=== PATIENT | male | born 1940 | race Caucasian/White ===

== ENCOUNTER 2020-08-09 13:26 | Inpatient (IN) ==
[2020-08-09] MEDS ORDERED: IOPAMIDOL 100 ML BOTTLE IV ONE (13:27)
[2020-08-09] MEDS ORDERED: VANCOMYCIN 1,000 MG in 0.9 % SODIUM CHLORIDE 250 ML IV ONE (14:30)
[2020-08-09] MEDS ORDERED: PIPERACILLIN SODIUM/TAZOBACTAM 3.375 GM in DEXTROSE 5% IN WATER 50 ML IV ONE (14:33)
[2020-08-09] MEDS ORDERED: 0.9 % SODIUM CHLORIDE 1,000 ML IV ONE ×2 (14:33→16:04)
[2020-08-09] MEDS ORDERED: ACETAMINOPHEN 325 MG TABLET PO ONE (15:12)
[2020-08-09 15:32] LABS: Basophils # (Auto) 0.04 K/mcL (0.00-0.20); Basophils % (Auto) 0.6 % (0.0-2.0); Eosinophils # (Auto) 0.05 K/mcL (0.00-0.70); Eosinophils % (Auto) 0.8 % (0.0-7.0); Hemoglobin 10.3 g/dL (13.5-16.5); Lymphocytes # (Auto) 0.67 K/mcL (1.50-4.80); Lymphocytes % (Auto) 10.2 % (15.0-49.0); Mean Cell Volume 67.6 fL (80.0-100.0); Mean Corpuscular HGB Conc 30.3 g/dL (31.0-36.0); Monocytes # (Auto) 0.48 K/mcL (0.10-0.90); Monocytes % (Auto) 7.3 % (1.0-12.0); Neutrophils % (Auto) 81.1 % (38.0-78.0); Platelet Count 255 K/mcL (140-440); RBC 5.03 M/mcL (4.50-5.90); Red Cell Distribution Width 16.1 % (11.5-14.5); WBC 6.6 K/mcL (4.5-11.0)
[2020-08-09 16:03] LABS: Appearance,Urine HAZY (Clear); Bilirubin,Urine NEG (Negative); Color,Urine Yellow; Glucose,Urine (UA) NEG (Negative); Ketones,Urine 5 mg/dL (Negative); Leukocyte Esterase,Urine NEG /ug (Negative); Mucus,Urine MANY /hpf; Nitrate,Urine NEG (Negative); Protein,Urine 100 mg/dL (Negative); Specific Gravity,Urine 1.023 (1.000-1.035); Urine Blood NEG (Negative); Urine Hyaline Cast 4 /lph (0-2); Urine RBC 1 /hpf (0-3); Urine Squamous Epithelial Cell 2 /hpf (0-4); Urine WBC 2 /hpf (0-4)
[2020-08-09 16:06] LABS: ALT/SGPT < 5 U/L (<40); AST/SGOT 15 U/L (<40); Albumin 3.3 gm/dL (3.2-5.2); Alkaline Phosphatase 71 U/L (39-117); Bilirubin,Total 0.5 mg/dL (0.1-1.0); Blood Urea Nitrogen 16 mg/dL (8-23); Calcium 8.9 mg/dL (8.6-10.4); Carbon Dioxide 29 mmol/L (22-30); Chloride 95 mmol/L (96-108); Globulin 3.2 gm/dL (2.2-3.7); Glomerular Filtration Rate 88; Glucose 160 mg/dL (70-105)
[2020-08-09] MEDS ORDERED: POTASSIUM CHLORIDE 20 MEQ TABLET PO ONE ×2 (16:26→21:40)
[2020-08-09] MEDS ORDERED: POTASSIUM CHLORIDE 20 MEQ in DEXTROSE 5% IN WATER 250 ML IV ONE (16:26)
[2020-08-09] MEDS ORDERED: MAGNESIUM SULFATE 8.12 MEQ/2 ML VIAL IV ONE (17:04)
[2020-08-09] MEDS ORDERED: MAGNESIUM SULFATE 8.12 MEQ in DEXTROSE 5% IN WATER 50 ML IV ONE ×2 (17:15→21:40)
--- NOTE | 2020-08-09 17:22 | Emergency Department Note ---
Fever HPI General Chief Complaint: Weakness Stated Complaint: Sepsis Time Seen by Provider: 08/09/20 13:41 Source: patient and family Mode of arrival: wheelchair Limitations: no limitations History of Present Illness HPI Narrative: Narrative: Presents from T7 for evaluation of fever with right upper extremity swelling. The patient is well-known to myself. I saw the patient on 07/25/2020 for evaluation of fever. At that time the patient had extensive evaluation which showed no identifiable source. There was a q uestionable abnormality in the urine and the patient was treated for that. The patient was subsequently seen yesterday at the ID clinic for generalized weakness decreased urine output and increased swelling of the right hand and forearm. Patient had an x-ray at that time which showed osteoarthritis and chondrocalcinosis. The patient did have an elevated D-dimer at that time. 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 The patient denies any headache. No neck stiffness. There is no cough or sputum production. The patient is noted to be tachypneic but denies shortness of breath or chest tightness. The patient denies any abdominal pain or back pain. There is no additional symptoms reported in the extremities other than the right upper extremity which is swollen and warm to the touch. Related Data Home Medications Medication Instructions Recorded Confirmed allopurinol 300 mg tablet 300 mg PO QDAY 06/05/20 08/03/20 aspirin 81 mg tablet,delayed 81 mg PO QDAY 06/05/20 08/03/20 release cholecalciferol (vitamin D3) 50 50 mcg PO QDAY 06/05/20 08/03/20 mcg (2,000 unit) capsule famotidine 20 mg tablet 20 mg PO QDAY 06/05/20 08/03/20 ferrous sulfate 324 mg (65 mg 324 mg PO QDAY 06/05/20 08/03/20 iron) tablet,delayed release fludrocortisone 0.1 mg tablet 0.1 mg PO BID tab 06/05/20 08/03/20 furosemide 20 mg tablet 10 mg PO QAM 06/05/20 08/03/20 loratadine 10 mg tablet 10 mg PO QDAY 06/05/20 08/03/20 mecobalamin (vitamin B12) 1,000 1,000 mcg PO QDAY 06/05/20 08/03/20 mcg chewable tablet mirtazapine 15 mg tablet 15 mg PO QHS 06/05/20 08/03/20 ondansetron HCl 4 mg tablet 4 mg PO Q8H 06/05/20 08/03/20 potassium chloride 10 mEq 20 meq PO QDAY 06/05/20 08/03/20 capsule,extended release rivaroxaban 20 mg tablet 20 mg PO QDAY 06/05/20 08/03/20 tamsulosin 0.4 mg capsule 0.4 mg PO QDAY 06/05/20 08/03/20 adhesive bandage 4" X 8" 07/20/20 08/03/20 apixaban 5 mg tablet 5 mg PO BID 07/20/20 08/03/20 budesonide-formoterol HFA 160 2 puff INHALATION BID 07/20/20 08/03/20 mcg-4.5 mcg/actuation aerosol inhaler calcium carbonate 200 mg calcium 200 mg PO BID 07/20/20 08/03/20 (500 mg) chewable tablet cyanocobalamin (vitamin B-12) 1,000 mcg PO QDAY 07/20/20 08/03/20 1,000 mcg capsule diaper,brief,adult,disposable 07/20/20 08/03/20 diclofenac sodium 1 % topical gel 2 g TOPICAL QID 07/20/20 08/03/20 docusate sodium 100 mg capsule 100 mg PO QDAY 07/20/20 08/03/20 doxycycline hyclate 100 mg tablet 100 mg PO QDAY 07/20/20 08/03/20 gauze bandage 4 1/2" X 147" 07/20/20 08/03/20 hydrocolloid dressing 6" X 8" 07/20/20 08/03/20 incontinence pad, liner, disp 07/20/20 08/03/20 insulin syringe-needle U-100 0.5 07/20/20 08/03/20 mL 29 gauge x 1/2" ipratropium 20 mcg-albuterol 100 1 puff INHALATION Q6H 07/20/20 08/03/20 mcg/actuation mist for inhalation ketoconazole 2 % shampoo 1 applic TOPICAL 3XW 07/20/20 08/03/20 multivitamin 1 tab PO QDAY 07/20/20 08/03/20 mupirocin 2 % topical ointment 1 applic TOPICAL BID 07/20/20 08/03/20 naloxone 4 mg/actuation nasal spray 4 mg INTRANASAL Q2M 07/20/20 08/03/20 nutritional supplements ea PO 07/20/20 08/03/20 oxybutynin chloride 5 mg tablet 5 mg PO QDAY 07/20/20 08/03/20 polyethylene glycol 3350(bulk) ea MISCELLANEOUS 07/20/20 08/03/20 pramipexole 1 mg tablet 1 mg PO QDAY 07/20/20 08/03/20 pregabalin 75 mg capsule 75 mg PO QDAY 07/20/20 08/03/20 sertraline 100 mg tablet 100 mg PO QDAY 07/20/20 08/03/20 urinal, non-specific 07/20/20 08/03/20 albuterol 20 mcg INHALATION Q4-6HP PRN 08/09/20 08/09/20 Previous Rx's Medication Instructions Recorded lidocaine 5 % topical patch 1 patch TOPICAL QDAY #15 ea 06/05/20 oxycodone-acetaminophen 5 mg-325 1 tab PO .q 12h PRN #14 tab 06/05/20 mg tablet Allergies Allergy/AdvReac Type Severity Reaction Status Date / Time ssri AdvReac Severe hallucinati Uncoded 08/09/20 14:47 ons Review of Systems ROS ROS Narrative: Narrative: All systems ED: reviewed and negative except as stated. [facility] Narrative Patient History Narrative: Narrative: Medical/Surgical/Family History All Active Problems (Updated 08/09/20 @ 18:02 by Max Mcadams MD) Acute hypokalemia (Acute) Hypomagnesemia (Acute) Cellulitis (Acute) Hx of laminectomy (Acute) History of bilateral knee replacement (Acute) History of hernia repair (Acute) History of appendectomy (Acute) Cervicalgia (Chronic) Degenerative disc disease (Chronic) Failed back syndrome (Chronic) Myelopathy (Chronic) Radiculopathy (Chronic) Lumbar spondylosis (Chronic) Right ankle sprain (Acute) Fever (Acute) Generalized weakness (Acute) Wound infection (Acute) Unspecified osteoarthritis, unspecified site (Chronic) Supraventricular tachycardia (Chronic) Pulmonary hypertension, unspecified (Chronic) Personal history of pulmonary embolism (Chronic) Nonrheumatic aortic valve disorder, unspecified (Chronic) Non-pressure chronic ulcer of unspecified part of unspecified lower leg with unspecified severity (Chronic) Gastro-esophageal reflux disease without esophagitis (Chronic) Benign essential hypertension (Chronic) Atherosclerotic heart disease of [place] coronary artery without angina pectoris (Chronic) Acute embolism and thrombosis of unspecified deep veins of unspecified lower extremity (Chronic) Right knee pain (Chronic) History of CVA (cerebrovascular accident) (Chronic) Gout (Chronic) Chronic anticoagulation (Chronic) Chronic low back pain (Chronic) History of rheumatoid arthritis (Chronic) COPD (chronic obstructive pulmonary disease) (Chronic) History of thalassemia (Chronic) Lower extremity edema (Chronic) Arthralgia (Chronic) Medical History Acute embolism and thrombosis of unspecified deep veins of unspecified lower extremity Arthralgia Atherosclerotic heart disease of [place] coronary artery without angina pectoris Benign essential hypertension Cervicalgia Chronic anticoagulation Chronic low back pain COPD (chronic obstructive pulmonary disease) Degenerative disc disease Failed back syndrome Gastro-esophageal reflux disease without esophagitis Gout History of CVA (cerebrovascular accident) History of rheumatoid arthritis History of thalassemia Lower extremity edema Lumbar spondylosis Myelopathy Non-pressure chronic ulcer of unspecified part of unspecified lower leg with unspecified severity Nonrheumatic aortic valve disorder, unspecified Personal history of pulmonary embolism Pulmonary hypertension, unspecified Radiculopathy Right knee pain Supraventricular tachycardia Unspecified osteoarthritis, unspecified site Surgical History History of appendectomy History of bilateral knee replacement History of hernia repair Hx of laminectomy No pertinent past surgical history Family History Father High blood pressure Heart disease Alcohol abuse Brother Heart disease Diabetes Mother High blood pressure Arthritis Diabetes Heart disease Sister High blood pressure Arthritis Heart disease Other No pertinent family history Social History Smoking Status: Never smoker Alcohol Intake Frequency: 0-2 drinks per day Substance Use: other Exam Narrative Narrative: Narrative: General Limitations: no limitations General appearance: Present alert and in no apparent distress Head Head: Present atraumatic, normocephalic and normal inspection Eye Eye: Present normal appearance and EOMI; Absent conjunctival injection ENT ENT: Present normal exam and mucous membranes moist Neck Neck: Present normal inspection and trachea midline Respiratory Respiratory: Present normal lung sounds bilaterally, respiratory distress and other (Tachypnea) Cardiovascular Cardiovascular: Present regular rate, normal rhythm and normal heart sounds Adbominal Abdominal: Present soft; Absent distention, tenderness, guarding and rebound Extremities Extremities: Present other (The right upper extremity shows diffuse spongy edema from the mid forearm distally involving the wrist and hand with warmth consistent with cellulitis.); Absent tenderness Back Back: Present normal inspection; Absent tenderness Neurological Neurological: Present alert, oriented X3 and CN II-XII intact; Absent motor sensory deficit Psychiatric Psychiatric: Present normal affect and normal mood Skin Skin: Present warm (WNL) and dry; Absent rash Course Vital Signs Vital signs: Vital Signs Temperature 102.1 F H 08/09/20 13:28 Pulse Rate 101 H 08/09/20 13:28 Respiratory Rate 22 08/09/20 13:28 Blood Pressure 127/76 08/09/20 13:28 Pulse Oximetry (%) 96 08/09/20 13:28 Temperature 100.8 F H 08/09/20 15:58 Pulse Rate 100 H 08/09/20 16:49 Respiratory Rate 26 H 08/09/20 16:49 Blood Pressure 123/57 08/09/20 16:49 Pulse Oximetry (%) 97 08/09/20 16:49 MDM MDM Narrative Medical decision making narrative: Narrative: Medical Records Medical records reviewed: Yes I reviewed the patient's medical records. Lab Data Lab results reviewed: Yes I reviewed the patient's lab results. Result diagrams: 08/09/20 14:15 08/09/20 14:15 Labs: Lab Results 08/09/20 08/09/20 08/09/20 Range/Units 14:15 14:15 14:15 WBC 6.6 (4.5-11.0) K/mcL RBC 5.03 (4.50-5.90) M/mcL Hgb 10.3 L (13.5-16.5) g/dL Hct 34.0 L (41.0-55.0) % MCV 67.6 L (80.0-100.0) fL MCH 20.5 L (26.0-34.0) pg MCHC 30.3 L (31.0-36.0) g/dL RDW 16.1 H (11.5-14.5) % Plt Count 255 (140-440) K/mcL MPV (7.4-10.4) fL Neut % (Auto) 81.1 H (38.0-78.0) % Lymph % (Auto) 10.2 L (15.0-49.0) % Mccone % (Auto) 7.3 (1.0-12.0) % Eos % (Auto) 0.8 (0.0-7.0) % Baso % (Auto) 0.6 (0.0-2.0) % Lymph # (Auto) 0.67 L (1.50-4.80) K/mcL Mccone # (Auto) 0.48 (0.10-0.90) K/mcL Eos # (Auto) 0.05 (0.00-0.70) K/mcL Baso # (Auto) 0.04 (0.00-0.20) K/mcL Absolute Neutrophils 5.34 (1.80-8.00) K/mcL VBG Lactic Acid 1.9 (0.5-2.0) mmol/L Sodium 136 (133-145) mmol/L Potassium 2.7 L* (3.3-5.1) mmol/L Chloride 95 L (96-108) mmol/L Carbon Dioxide 29 (22-30) mmol/L Anion Gap 12.0 (8.0-16.0) BUN 16 (8-23) mg/dL Creatinine 0.7 (0.7-1.2) mg/dL GFR Calculation 88 Glucose 160 H (70-105) mg/dL Calcium 8.9 (8.6-10.4) mg/dL Magnesium (1.6-2.5) mg/dL Total Bilirubin 0.5 (0.1-1.0) mg/dL AST 15 (<40) U/L ALT < 5 (<40) U/L Alkaline Phosphatase 71 (39-117) U/L Total Protein 6.5 (5.9-8.4) gm/dL Albumin 3.3 (3.2-5.2) gm/dL Globulin 3.2 (2.2-3.7) gm/dL Albumin/Globulin Ratio 1.0 (1.0-2.3) Urine Color Urine Appearance (Clear) Urine pH (5.0-9.0) Ur Specific Speed (1.000-1.035) Urine Protein (Negative) mg/dL Urine Glucose (UA) (Negative) mg/dL Urine Ketones (Negative) mg/dL Urine Occult Blood (Negative) mg/dL Urine Nitrate (Negative) Urine Bilirubin (Negative) mg/dL Urine Urobilinogen mg/dL Ur Leukocyte Esterase (Negative) /ug Urine RBC (0-3) /hpf Urine WBC (0-4) /hpf Ur Squamous Epith Cells (0-4) /hpf Urine Bacteria (0) /hpf Hyaline Casts (0-2) /lph Urine Mucus (None) /hpf 08/09/20 08/09/20 Range/Units 14:15 14:49 WBC (4.5-11.0) K/mcL RBC (4.50-5.90) M/mcL Hgb (13.5-16.5) g/dL Hct (41.0-55.0) % MCV (80.0-100.0) fL MCH (26.0-34.0) pg MCHC (31.0-36.0) g/dL RDW (11.5-14.5) % Plt Count (140-440) K/mcL MPV (7.4-10.4) fL Neut % (Auto) (38.0-78.0) % Lymph % (Auto) (15.0-49.0) % Mccone % (Auto) (1.0-12.0) % Eos % (Auto) (0.0-7.0) % Baso % (Auto) (0.0-2.0) % Lymph # (Auto) (1.50-4.80) K/mcL Mccone # (Auto) (0.10-0.90) K/mcL Eos # (Auto) (0.00-0.70) K/mcL Baso # (Auto) (0.00-0.20) K/mcL Absolute Neutrophils (1.80-8.00) K/mcL VBG Lactic Acid (0.5-2.0) mmol/L Sodium (133-145) mmol/L Potassium (3.3-5.1) mmol/L Chloride (96-108) mmol/L Carbon Dioxide (22-30) mmol/L Anion Gap (8.0-16.0) BUN (8-23) mg/dL Creatinine (0.7-1.2) mg/dL GFR Calculation Glucose (70-105) mg/dL Calcium (8.6-10.4) mg/dL Magnesium 1.2 L (1.6-2.5) mg/dL Total Bilirubin (0.1-1.0) mg/dL AST (<40) U/L ALT (<40) U/L Alkaline Phosphatase (39-117) U/L Total Protein (5.9-8.4) gm/dL Albumin (3.2-5.2) gm/dL Globulin (2.2-3.7) gm/dL Albumin/Globulin Ratio (1.0-2.3) Urine Color Yellow Urine Appearance Hazy A (Clear) Urine pH 5.0 (5.0-9.0) Ur Specific Speed 1.023 (1.000-1.035) Urine Protein 100 A (Negative) mg/dL Urine Glucose (UA) Neg (Negative) mg/dL Urine Ketones 5 A (Negative) mg/dL Urine Occult Blood Neg (Negative) mg/dL Urine Nitrate Neg (Negative) Urine Bilirubin Neg (Negative) mg/dL Urine Urobilinogen 2.0 A mg/dL Ur Leukocyte Esterase Neg (Negative) /ug Urine RBC 1 (0-3) /hpf Urine WBC 2 (0-4) /hpf Ur Squamous Epith Cells 2 (0-4) /hpf Urine Bacteria None (0) /hpf Hyaline Casts 4 H (0-2) /lph Urine Mucus Many A (None) /hpf Radiology Data Radiology results reviewed: Yes I reviewed the patient's radiology results. CC TIME Critical Care Time Critical Care Time: Yes Total Critical Care Time: 30 Attestation: Approximately 30 minutes of critical care time was used in order to assess and manage the high probability of imminent or life threatening deterioration which required my highest level of preparedness and interventions with frequent patient assessments. This time is excluding time spent on separately billable procedures. Patient presents for evaluation of fever with redness warmth and swelling of the right upper extremity. The patient has an elevated D-dimer but is on Eliquis. Ultrasound of the right upper extremity confirmed no evidence of acute DVT. Incidental finding of fluid in the right glenohumeral joint is suggestive of arthritis. There is no tenderness with range of motion beyond baseline. There is no warmth or swelling and I have very low suspicion of septic joint in the right shoulder. On arrival the patient was noticed to be febrile and was treate d with antipyretics. Blood cultures were obtained and the patient was given empiric dose of vancomycin and Zosyn. I did review the patient's medical record from the visit on 07/25/2020 and noted that blood cultures at that time during the patient's work-up for fever were normal. The patient's urine culture at the time also showed skin contaminants but no infection. The patient has had an interval change with worsening redness and swelling of the right upper extremity. This is clinically consistent with cellulitis. The patient does have fever with tachypnea consistent with SIRS. The patient's lactic acid level is 1.9. There are no other indices suggestive of endorgan dysfunction. The p atient did have decreased urine in the bladder and was given an IV fluid bolus. The patient's been and creatinine is normal. The patient's potassium was 2.7 and the magnesium was 1.2. The patient was given IV and oral potassium as well as a dose of magnesium. The patient is not hypoxic with pulse ox being 100% on room air. The patient does not have any evidence of metabolic acidosis and I do not have a good explanation as to why he is tachypneic. CT scan of the chest as well as abdomen pelvis is currently pending. The patient will require admission. Of asked the oncoming physician to follow-up on the CT results and to disposition the patient. Discharge Plan Patient/Caregiver Discharge Instructions Pt seen by ELIGIBILITY COUNSELOR/PA only: No Clinical Impression: Fever, Acute hypokalemia, Hypomagnesemia, Cellulitis Patient Disposition: Still a Patient Follow up with: No,PCP [Primary Care Provider] - Prescriptions: No Action ipratropium-albuterol 20-100 mcg/actuation mist 1 puff inhalation Q6H RF: 0 apixaban 5 mg tablet 5 mg PO BID RF: 0 (DME) Briefs Misc See Rx Instructions .Route RF: 0 budesonide-formoterol 160-4.5 mcg/actuation HFA aerosol inhaler 2 puff inhalation DAILY RF: 0 calcium carbonate [Antacid (calcium carbonate)] 200 mg calcium (500 mg) tablet,chewable 200 mg PO BID RF: 0 cyanocobalamin (vitamin B-12) 1,000 mcg capsule 1,000 mcg PO QDAY RF: 0 diclofenac sodium [Arthritis Pain (diclofenac)] 1 % gel 2 g topical QID RF: 0 docusate sodium 100 mg capsule 100 mg PO QDAY RF: 0 (DME) hydrocolloid dressing [Restore Extra Thin Dressing] 6 X 8 " bandage See Rx Instructions .Route RF: 0 (DME) adhesive bandage 4 X 8 " bandage See Rx Instructions .Route RF: 0 (DME) incontinence pad, liner, disp Pad See Rx Instructions .Route RF: 0 (DME) Kerlix 4 1/2 X 147 " bandage See Rx Instructions .Route RF: 0 ketoconazole 2 % shampoo 1 applic topical DAILY PRN (Reason: dandruff) RF: 0 mupirocin 2 % ointment 1 applic topical BID RF: 0 naloxone 4 mg/actuation spray,non-aerosol 4 mg intranasal PRN PRN (Reason: overdose) RF: 0 nutritional supplements Liquid PO RF: 0 polyethylene glycol 3350(bulk) [Base B,Polyethylene [id number]] Granules miscellaneous RF: 0 pregabalin 75 mg capsule 75 mg PO QDAY RF: 0 (DME) urinal, non-specific Misc See Rx Instructions .Route RF: 0 oxybutynin chloride 5 mg tablet 5 mg PO QDAY RF: 0 doxycycline hyclate 100 mg tablet 100 mg PO QDAY RF: 0 multivitamin Tablet 1 tab PO QDAY RF: 0 pramipexole 1 mg tablet 1 mg PO QDAY RF: 0 sertraline 100 mg tablet 100 mg PO QDAY RF: 0 (DME) insulin syringe-needle U-100 [[facility] Syringes] 0.5 mL 29 gauge x 1/2" syringe See Rx Instructions .Route RF: 0 potassium chloride 10 mEq capsule, extended release 20 meq PO QDAY RF: 0 tamsulosin 0.4 mg capsule 0.4 mg PO QDAY RF: 0 aspirin 81 mg tablet,delayed release (DR/EC) 81 mg PO QDAY RF: 0 fludrocortisone 0.1 mg tablet 0.1 mg PO BID RF: 0 furosemide 20 mg tablet 10 mg PO QAM RF: 0 famotidine 20 mg tablet 20 mg PO QDAY RF: 0 rivaroxaban 20 mg tablet 20 mg PO QDAY RF: 0 mirtazapine 15 mg tablet 15 mg PO QHS RF: 0 cholecalciferol (vitamin D3) 50 mcg (2,000 unit) capsule 50 mcg PO QDAY RF: 0 ondansetron HCl 4 mg tablet 4 mg PO Q8H RF: 0 ferrous sulfate 324 mg (65 mg iron) tablet,delayed release (DR/EC) 325 mg PO QDAY RF: 0 allopurinol 300 mg tablet 300 mg PO QDAY RF: 0 mecobalamin (vitamin B12) 1,000 mcg tablet,chewable 1,000 mcg PO QDAY RF: 0 loratadine [Claritin] 10 mg tablet 10 mg PO QDAY RF: 0 lidocaine 5 % adhesive patch,medicated 1 patch topical QDAY Qty: 15 RF: 0 oxycodone-acetaminophen 5-325 mg tablet 1 tab PO .q 12h PRN (Reason: pain) Qty: 14 RF: 0 albuterol 90 mcg/actuation Aerosol 20 mcg inhalation Q4-6HP PRN (Reason: Wheezing) RF: 0
--- NOTE | 2020-08-09 17:54 | Ultrasound Report ---
History: Sepsis, right arm pain and swelling, elevated serum d-dimer level FINDINGS: Normal blood flow is demonstrated in the right arm from the distal forearm through the upper arm and axillary vein, into the subclavian vein. Normal flow is also seen in the right internal jugular. No deep venous thrombosis is seen. There is a large complex fluid collection around the right shoulder. The fluid collection measures 1.6 x 4.8 x 6.1 cm. Within it there is a complex irregularly shaped solid masslike structure which measures 1.2 x 2.6 x 2.7 cm. Doppler shows it is avascular. Doppler showed no abnormal increased blood flow along the periphery of the fluid collection. IMPRESSION: No evidence of deep venous thrombosis in the right arm Large complex fluid collection surrounding the right shoulder with some solid debris within the fluid pocket Interpreted and Authenticated by: Stephen Warner 08/09/20
--- NOTE | 2020-08-09 18:34 | Cat Scan Report ---
History: Fever, tachypnea, sepsis TECHNIQUE: Following injection of intravenous nonionic contrast the patient was scanned from the thoracic inlet through the symphysis pubis. Sagittal and coronal reformats were created. Five minute delayed images of the upper abdomen were acquired. Radiation exposure was limited using dose reduction technology. FINDINGS: Chest: Severe arthritis and inflammation is present in the right shoulder. The glenoid is severely remodeled and widened indicating this is a chronic process. There is also erosion and partial destruction of the humeral head. Associated with this is a large joint effusion. There is some relatively high attenuation heterogeneous material within the effusion located lateral to the humeral head. This corresponds with debris seen on the right arm duplex ultrasound. These findings have remained stable since the prior CT done on 07/25/20. Moderate osteoarthritis is present in the left shoulder. There is joint space narrowing and spur formation of both sides of the joint but no remodeling of bone or erosion. There may be a small joint effusion on the left side. Patient has a right-sided aortic arch which is ectatic and extends to the right apex. There is no dissection. Main pulmonary artery is enlarged suggesting pulmonary artery hypertension. This is also a chronic stable finding. There is partial atelectasis of the right middle lobe. This is related to moderate elevation of the right diaphragm which is compressing the right lung base and right middle lobe. Several linear opacities are present in the left lower lobe, lingula and posteriorly in the right lower lobe. This may be a combination of scar and atelectasis. They have not changed since 07/25/20. No new pulmonary infiltrate has developed. There is no pleural effusion. The heart is mild to moderately enlarged. Large amount calcified plaque is present throughout the coronary arteries. There are also calcifications in the aortic valve and mitral annulus. No pulmonary emboli are present. There is no evidence of a lung abscess. A moderate wedge compression fractures present at T9. There is also an old healed fracture medially in the left ninth rib where it articulates with the spine. These are unchanged. Abdomen and pelvis: The liver is mildly enlarged. There is moderate elevation of the right diaphragm. No liver mass is present. Numerous gallstones are present in the gallbladder. Gallbladder wall is normal thickness and there is no pericholecystic fluid collection. The bile ducts are nondilated. The spleen is normal in size and homogeneous. There is fatty infiltration the pancreas and no evidence of pancreatitis or mass. The adrenals are normal. Kidneys are normal in size shape and contour and there is no evidence of mass, cyst, hydronephrosis or infection in either kidney. Severe atherosclerotic disease is present throughout all of the vessels in the abdomen and pelvis. The aorta is normal in caliber but tortuous. There is mild ectasia of the common iliac arteries. The bowel pattern is normal without evidence of diverticulitis, colitis or obstruction. No mass, abscess or ascites are present in the abdomen or pelvis. Prostate is mildly enlarged. Extensive postsurgical changes are present in the lumbar spine following wide laminectomy and interbody fusion at L1-2 and L2-3. Severe disc space narrowing is present at T12-L1, L3-4, L4-5 and L5-S1. There is no evidence of osteomyelitis in the spine or pelvis. There is a inferior vena cava filter in the mid abdomen. There is no clot in the inferior vena cava. Small bilateral fat-containing inguinal hernias are present. IMPRESSION: Severe arthritis and inflammation in the right shoulder. This could be due to rheumatoid arthritis or gout. Superimposed infection cannot be excluded. Stable scar and atelectasis in both lungs with the greatest involvement in the right middle lobe Mild hepatomegaly Cholelithiasis but without cholecystitis Severe atherosclerosis throughout the chest abdomen and pelvis. Interpreted and Authenticated by: Stephen Warner 08/09/20
--- NOTE | 2020-08-09 20:21 | Emergency Department Note ---
Course Vital Signs Vital signs: Vital Signs Temperature 38.9 C H 08/09/20 13:28 Pulse Rate 101 H 08/09/20 13:28 Respiratory Rate 22 08/09/20 13:28 Blood Pressure 127/76 08/09/20 13:28 Pulse Oximetry (%) 96 08/09/20 13:28 Temperature 36.7 C 08/09/20 21:28 Pulse Rate 73 08/09/20 21:28 Respiratory Rate 36 H 08/09/20 21:28 Blood Pressure 135/80 08/09/20 21:28 Pulse Oximetry (%) 98 08/09/20 21:28 MDM MDM Narrative Medical decision making narrative: Narrative: pt endorsed to me (please refer to Dr. Mcadams note); awaiting CT results and admission. Patient with some cellulitis to his right upper extremity already received appropriate fluid bolus as well as broad-spectrum antibiotics. Ultrasound right upper extremity does not show any DVT nor abscess CT chest abdomen pelvis shows IMPRESSION: Severe arthritis and inflammation in the right shoulder. This could be due to rheumatoid arthritis or gout. Superimposed infection cannot be excluded. Stable scar and atelectasis in both lungs with the greatest involvement in the right middle lobe Mild hepatomegaly Cholelithiasis but without cholecystitis Severe atherosclerosis throughout the chest abdomen and pelvis. Given the fact he is presenting fever and this finding of inflammation and fluid to his right shoulder I did discuss with Dr. Warner, this is not significantly changed from previous CT and I also consulted with Dr. Emmanuel with orthopedics, this is likely inflammatory however given the fact he is febrile today Dr. Warner is going to perform an arthrocentesis under guidance to rule out septic infection. If results do suggest a septic joint Dr. Emmanuel will take the patient for a washout otherwise patient has already received broad-spectrum antibiotics and I have consulted with Dr. burt for admission Lab Data Result diagrams: 08/09/20 14:15 08/09/20 14:15 Labs: Lab Results 08/09/20 08/09/20 08/09/20 Range/Units 14:15 14:15 14:15 WBC 6.6 (4.5-11.0) K/mcL RBC 5.03 (4.50-5.90) M/mcL Hgb 10.3 L (13.5-16.5) g/dL Hct 34.0 L (41.0-55.0) % MCV 67.6 L (80.0-100.0) fL MCH 20.5 L (26.0-34.0) pg MCHC 30.3 L (31.0-36.0) g/dL RDW 16.1 H (11.5-14.5) % Plt Count 255 (140-440) K/mcL MPV (7.4-10.4) fL Neut % (Auto) 81.1 H (38.0-78.0) % Lymph % (Auto) 10.2 L (15.0-49.0) % [place] % (Auto) 7.3 (1.0-12.0) % Eos % (Auto) 0.8 (0.0-7.0) % Baso % (Auto) 0.6 (0.0-2.0) % Lymph # (Auto) 0.67 L (1.50-4.80) K/mcL [place] # (Auto) 0.48 (0.10-0.90) K/mcL Eos # (Auto) 0.05 (0.00-0.70) K/mcL Baso # (Auto) 0.04 (0.00-0.20) K/mcL Seg Neutrophils % (38-78) % Lymphocytes % (15-49) % Monocytes % (Manual) (1-12) % Absolute Neutrophils 5.34 (1.80-8.00) K/mcL Platelet Estimate (Normal) RBC Morphology (Normal) Polychromasia (None Seen) Hypochromasia (None Seen) Poikilocytosis (None Seen) Anisocytosis (None Seen) Microcytosis (None Seen) Ovalocytes (None Seen) ESR (0-15) mm/hr VBG Lactic Acid 1.9 (0.5-2.0) mmol/L Sodium 136 (133-145) mmol/L Potassium 2.7 L* (3.3-5.1) mmol/L Chloride 95 L (96-108) mmol/L Carbon Dioxide 29 (22-30) mmol/L Anion Gap 12.0 (8.0-16.0) BUN 16 (8-23) mg/dL Creatinine 0.7 (0.7-1.2) mg/dL GFR Calculation 88 Glucose 160 H (70-105) mg/dL Calcium 8.9 (8.6-10.4) mg/dL Magnesium (1.6-2.5) mg/dL Total Bilirubin 0.5 (0.1-1.0) mg/dL AST 15 (<40) U/L ALT < 5 (<40) U/L Alkaline Phosphatase 71 (39-117) U/L C-Reactive Protein (0.03-0.80) mg/dL Total Protein 6.5 (5.9-8.4) gm/dL Albumin 3.3 (3.2-5.2) gm/dL Globulin 3.2 (2.2-3.7) gm/dL Albumin/Globulin Ratio 1.0 (1.0-2.3) Urine Color Urine Appearance (Clear) Urine pH (5.0-9.0) Ur Specific [place] (1.000-1.035) Urine Protein (Negative) mg/dL Urine Glucose (UA) (Negative) mg/dL Urine Ketones (Negative) mg/dL Urine Occult Blood (Negative) mg/dL Urine Nitrate (Negative) Urine Bilirubin (Negative) mg/dL Urine Urobilinogen mg/dL Ur Leukocyte Esterase (Negative) /ug Urine RBC (0-3) /hpf Urine WBC (0-4) /hpf Ur Squamous Epith Cells (0-4) /hpf Urine Bacteria (0) /hpf Hyaline Casts (0-2) /lph Urine Mucus (None) /hpf Fluid Source Fluid Color Fluid Appearance Fluid RBC Fluid Diff Comment Fluid Tot Cell Count Fluid Nucleated Cells Fluid Neutrophils Fluid Lymphocytes Fluid Monocytes Fluid Eosinophils Fluid Basophils Fluid Plasma Cells Fld Mesothelial Cells Fluid Crystals (None Seen) Synovial Glucose mg/dL Synovial Uric Acid (0.0-6.0) mg/dL 08/09/20 08/09/20 08/09/20 Range/Units 14:15 14:29 14:38 WBC (4.5-11.0) K/mcL RBC (4.50-5.90) M/mcL Hgb (13.5-16.5) g/dL Hct (41.0-55.0) % MCV (80.0-100.0) fL MCH (26.0-34.0) pg MCHC (31.0-36.0) g/dL RDW (11.5-14.5) % Plt Count (140-440) K/mcL MPV (7.4-10.4) fL Neut % (Auto) (38.0-78.0) % Lymph % (Auto) (15.0-49.0) % [place] % (Auto) (1.0-12.0) % Eos % (Auto) (0.0-7.0) % Baso % (Auto) (0.0-2.0) % Lymph # (Auto) (1.50-4.80) K/mcL [place] # (Auto) (0.10-0.90) K/mcL Eos # (Auto) (0.00-0.70) K/mcL Baso # (Auto) (0.00-0.20) K/mcL Seg Neutrophils % 86 H (38-78) % Lymphocytes % 11 L (15-49) % Monocytes % (Manual) 3 (1-12) % Absolute Neutrophils (1.80-8.00) K/mcL Platelet Estimate Normal (Normal) RBC Morphology Abnormal A (Normal) Polychromasia 1+ A (None Seen) Hypochromasia 2+ A (None Seen) Poikilocytosis 1+ A (None Seen) Anisocytosis 1+ A (None Seen) Microcytosis 2+ A (None Seen) Ovalocytes 1+ A (None Seen) ESR 42 H (0-15) mm/hr VBG Lactic Acid (0.5-2.0) mmol/L Sodium (133-145) mmol/L Potassium (3.3-5.1) mmol/L Chloride (96-108) mmol/L Carbon Dioxide (22-30) mmol/L Anion Gap (8.0-16.0) BUN (8-23) mg/dL Creatinine (0.7-1.2) mg/dL GFR Calculation Glucose (70-105) mg/dL Calcium (8.6-10.4) mg/dL Magnesium 1.2 L (1.6-2.5) mg/dL Total Bilirubin (0.1-1.0) mg/dL AST (<40) U/L ALT (<40) U/L Alkaline Phosphatase (39-117) U/L C-Reactive Protein (0.03-0.80) mg/dL Total Protein (5.9-8.4) gm/dL Albumin (3.2-5.2) gm/dL Globulin (2.2-3.7) gm/dL Albumin/Globulin Ratio (1.0-2.3) Urine Color Urine Appearance (Clear) Urine pH (5.0-9.0) Ur Specific [place] (1.000-1.035) Urine Protein (Negative) mg/dL Urine Glucose (UA) (Negative) mg/dL Urine Ketones (Negative) mg/dL Urine Occult Blood (Negative) mg/dL Urine Nitrate (Negative) Urine Bilirubin (Negative) mg/dL Urine Urobilinogen mg/dL Ur Leukocyte Esterase (Negative) /ug Urine RBC (0-3) /hpf Urine WBC (0-4) /hpf Ur Squamous Epith Cells (0-4) /hpf Urine Bacteria (0) /hpf Hyaline Casts (0-2) /lph Urine Mucus (None) /hpf Fluid Source Fluid Color Fluid Appearance Fluid RBC Fluid Diff Comment Fluid Tot Cell Count Fluid Nucleated Cells Fluid Neutrophils Fluid Lymphocytes Fluid Monocytes Fluid Eosinophils Fluid Basophils Fluid Plasma Cells Fld Mesothelial Cells Fluid Crystals (None Seen) Synovial Glucose mg/dL Synovial Uric Acid (0.0-6.0) mg/dL 08/09/20 08/09/20 08/09/20 Range/Units 14:38 14:49 20:50 WBC (4.5-11.0) K/mcL RBC (4.50-5.90) M/mcL Hgb (13.5-16.5) g/dL Hct (41.0-55.0) % MCV (80.0-100.0) fL MCH (26.0-34.0) pg MCHC (31.0-36.0) g/dL RDW (11.5-14.5) % Plt Count (140-440) K/mcL MPV (7.4-10.4) fL Neut % (Auto) (38.0-78.0) % Lymph % (Auto) (15.0-49.0) % [place] % (Auto) (1.0-12.0) % Eos % (Auto) (0.0-7.0) % Baso % (Auto) (0.0-2.0) % Lymph # (Auto) (1.50-4.80) K/mcL [place] # (Auto) (0.10-0.90) K/mcL Eos # (Auto) (0.00-0.70) K/mcL Baso # (Auto) (0.00-0.20) K/mcL Seg Neutrophils % (38-78) % Lymphocytes % (15-49) % Monocytes % (Manual) (1-12) % Absolute Neutrophils (1.80-8.00) K/mcL Platelet Estimate (Normal) RBC Morphology (Normal) Polychromasia (None Seen) Hypochromasia (None Seen) Poikilocytosis (None Seen) Anisocytosis (None Seen) Microcytosis (None Seen) Ovalocytes (None Seen) ESR (0-15) mm/hr VBG Lactic Acid (0.5-2.0) mmol/L Sodium (133-145) mmol/L Potassium (3.3-5.1) mmol/L Chloride (96-108) mmol/L Carbon Dioxide (22-30) mmol/L Anion Gap (8.0-16.0) BUN (8-23) mg/dL Creatinine (0.7-1.2) mg/dL GFR Calculation Glucose (70-105) mg/dL Calcium (8.6-10.4) mg/dL Magnesium (1.6-2.5) mg/dL Total Bilirubin (0.1-1.0) mg/dL AST (<40) U/L ALT (<40) U/L Alkaline Phosphatase (39-117) U/L C-Reactive Protein 11.40 H (0.03-0.80) mg/dL Total Protein (5.9-8.4) gm/dL Albumin (3.2-5.2) gm/dL Globulin (2.2-3.7) gm/dL Albumin/Globulin Ratio (1.0-2.3) Urine Color Yellow Urine Appearance Hazy A (Clear) Urine pH 5.0 (5.0-9.0) Ur Specific [place] 1.023 (1.000-1.035) Urine Protein 100 A (Negative) mg/dL Urine Glucose (UA) Neg (Negative) mg/dL Urine Ketones 5 A (Negative) mg/dL Urine Occult Blood Neg (Negative) mg/dL Urine Nitrate Neg (Negative) Urine Bilirubin Neg (Negative) mg/dL Urine Urobilinogen 2.0 A mg/dL Ur Leukocyte Esterase Neg (Negative) /ug Urine RBC 1 (0-3) /hpf Urine WBC 2 (0-4) /hpf Ur Squamous Epith Cells 2 (0-4) /hpf Urine Bacteria None (0) /hpf Hyaline Casts 4 H (0-2) /lph Urine Mucus Many A (None) /hpf Fluid Source TNP Fluid Color TNP Fluid Appearance TNP Fluid RBC TNP Fluid Diff Comment TNP Fluid Tot Cell Count TNP Fluid Nucleated Cells TNP Fluid Neutrophils TNP Fluid Lymphocytes TNP Fluid Monocytes TNP Fluid Eosinophils TNP Fluid Basophils TNP Fluid Plasma Cells TNP Fld Mesothelial Cells TNP Fluid Crystals None seen (None Seen) Synovial Glucose 151 mg/dL Synovial Uric Acid 3.3 (0.0-6.0) mg/dL ED POC Tests ED POC Tests: JAREN - SARS Antigen Negative Discharge Plan Patient/Caregiver Discharge Instructions Pt seen by CARPENTRY SPECIALIST/PA only: No Clinical Impression: Fever, Acute hypokalemia, Hypomagnesemia, Cellulitis Patient Disposition: Xfer As Inpt ([facility]) Condition: Fair Discharge Date/Time: 08/09/20 21:15
--- NOTE | 2020-08-09 20:46 | Internal Med History&Physical ---
HPI History of Present Illness Patient information: Note initiated : 08/09/20 at 8:35 pm Service Date, if different from initiated Date: [] Patient: Juan R Norman 79 y/o M admitted on for Sepsis. Chief Complaint: [] History of present illness: Mr. Norman is a 79 year old M Presents to ED with weakness right upper extremity swelling. He was seen the beginning of July with fever with extensive work-up that was unremarkable. He was sent home but comes back today with increased weakness fevers increased decreased urine output increased right upper extremity swelling and redness. Patient is a poor historian most history is from the chart. Patient states seem to happen overnight with the swelling. It is tender and has had as well. Work-up included ultrasound of the upper extremities which showed no DVT but did show a loculated fluid collection around the right shoulder. He also had redness and swelling of his forearm and hand. He had a early septic-like presentation. He was mildly tachycardic he was tachypneic he had blood pressure that was hypotensive with systolic 88. Lactate was within normal limits. Potassium and mag were low. Case was discussed with Dr. Emmanuel orthopedic surgeon will follow up on the aspiration analysis that is done by radiology. Patient started an empiric antibiotics. Patient states that he lived in [place] up until several months ago his had and then he had problems with planning director so his sister went down there and brought him back and has been living in the [place] home since. He was in the hospital [place] few months ago for a stroke which affected his speech and left-sided weakness he says Review of Systems: Pertinent positives above. Denies headache/fever/chills/nausea/vomiting/chest or abdominal pain/cough/dyspnea/diarrhea. Main 10 point review of system reviewed negative PFSH PFSH All Active Problems (Updated 08/09/20 @ 18:02 by Max Mcadams MD) Acute hypokalemia (Acute) Hypomagnesemia (Acute) Cellulitis (Acute) Hx of laminectomy (Acute) History of bilateral knee replacement (Acute) History of hernia repair (Acute) History of appendectomy (Acute) Cervicalgia (Chronic) Degenerative disc disease (Chronic) Failed back syndrome (Chronic) Myelopathy (Chronic) Radiculopathy (Chronic) Lumbar spondylosis (Chronic) Right ankle sprain (Acute) Fever (Acute) Generalized weakness (Acute) Wound infection (Acute) Unspecified osteoarthritis, unspecified site (Chronic) Supraventricular tachycardia (Chronic) Pulmonary hypertension, unspecified (Chronic) Personal history of pulmonary embolism (Chronic) Nonrheumatic aortic valve disorder, unspecified (Chronic) Non-pressure chronic ulcer of unspecified part of unspecified lower leg with unspecified severity (Chronic) Gastro-esophageal reflux disease without esophagitis (Chronic) Benign essential hypertension (Chronic) Atherosclerotic heart disease of [place] coronary artery without angina pectoris (Chronic) Acute embolism and thrombosis of unspecified deep veins of unspecified lower extremity (Chronic) Right knee pain (Chronic) History of CVA (cerebrovascular accident) (Chronic) Gout (Chronic) Chronic anticoagulation (Chronic) Chronic low back pain (Chronic) History of rheumatoid arthritis (Chronic) COPD (chronic obstructive pulmonary disease) (Chronic) History of thalassemia (Chronic) Lower extremity edema (Chronic) Arthralgia (Chronic) Medical History Acute embolism and thrombosis of unspecified deep veins of unspecified lower extremity Arthralgia Atherosclerotic heart disease of [place] coronary artery without angina pectoris Benign essential hypertension Cervicalgia Chronic anticoagulation Chronic low back pain COPD (chronic obstructive pulmonary disease) Degenerative disc disease Failed back syndrome Gastro-esophageal reflux disease without esophagitis Gout History of CVA (cerebrovascular accident) History of rheumatoid arthritis History of thalassemia Lower extremity edema Lumbar spondylosis Myelopathy Non-pressure chronic ulcer of unspecified part of unspecified lower leg with unspecified severity Nonrheumatic aortic valve disorder, unspecified Personal history of pulmonary embolism Pulmonary hypertension, unspecified Radiculopathy Right knee pain Supraventricular tachycardia Unspecified osteoarthritis, unspecified site Surgical History History of appendectomy History of bilateral knee replacement History of hernia repair Hx of laminectomy No pertinent past surgical history Family History Father High blood pressure Heart disease Alcohol abuse Brother Heart disease Diabetes Mother High blood pressure Arthritis Diabetes Heart disease Sister High blood pressure Arthritis Heart disease Other No pertinent family history Social History (System 08/09/20 @ 14:47 by Love Ross) marital status: education level: college 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[employer] smoking status: Former smoker alcohol intake frequency: 0-2 drinks per day substance use type: other details: edible THC MEDS/ALLERGIES Home Medications and Allergies Home Medications Medication Instructions Recorded Confirmed Type allopurinol 300 mg tablet 300 mg PO QDAY 06/05/20 08/09/20 History aspirin 81 mg tablet,delayed 81 mg PO QDAY 06/05/20 08/03/20 History release cholecalciferol (vitamin D3) 50 50 mcg PO QDAY 06/05/20 08/09/20 History mcg (2,000 unit) capsule famotidine 20 mg tablet 20 mg PO QDAY 06/05/20 08/09/20 History ferrous sulfate 324 mg (65 mg 325 mg PO QDAY 06/05/20 08/09/20 History iron) tablet,delayed release fludrocortisone 0.1 mg tablet 0.1 mg PO BID tab 06/05/20 08/09/20 History furosemide 20 mg tablet 10 mg PO QAM 06/05/20 08/03/20 History lidocaine 5 % topical patch 1 patch TOPICAL QDAY #15 ea 06/05/20 08/09/20 Rx loratadine 10 mg tablet 10 mg PO QDAY 06/05/20 08/03/20 History mecobalamin (vitamin B12) 1,000 1,000 mcg PO QDAY 06/05/20 08/03/20 History mcg chewable tablet mirtazapine 15 mg tablet 15 mg PO QHS 06/05/20 08/03/20 History ondansetron HCl 4 mg tablet 4 mg PO Q8H 06/05/20 08/03/20 History oxycodone-acetaminophen 5 mg-325 1 tab PO .q 12h PRN #14 tab 06/05/20 08/03/20 Rx mg tablet potassium chloride 10 mEq 20 meq PO QDAY 06/05/20 08/03/20 History capsule,extended release rivaroxaban 20 mg tablet 20 mg PO QDAY 06/05/20 08/03/20 History tamsulosin 0.4 mg capsule 0.4 mg PO QDAY 06/05/20 08/09/20 History adhesive bandage 4" X 8" 07/20/20 08/09/20 History apixaban 5 mg tablet 5 mg PO BID 07/20/20 08/09/20 History budesonide-formoterol HFA 160 2 puff INHALATION DAILY 07/20/20 08/09/20 History mcg-4.5 mcg/actuation aerosol inhaler calcium carbonate 200 mg calcium 200 mg PO BID 07/20/20 08/03/20 History (500 mg) chewable tablet cyanocobalamin (vitamin B-12) 1,000 mcg PO QDAY 07/20/20 08/09/20 History 1,000 mcg capsule diaper,brief,adult,disposable 07/20/20 08/03/20 History diclofenac sodium 1 % topical gel 2 g TOPICAL QID 07/20/20 08/09/20 History docusate sodium 100 mg capsule 100 mg PO QDAY 07/20/20 08/09/20 History doxycycline hyclate 100 mg tablet 100 mg PO QDAY 07/20/20 08/03/20 History gauze bandage 4 1/2" X 147" 07/20/20 08/03/20 History hydrocolloid dressing 6" X 8" 07/20/20 08/03/20 History incontinence pad, liner, disp 07/20/20 08/03/20 History insulin syringe-needle U-100 0.5 07/20/20 08/03/20 History mL 29 gauge x 1/2" ipratropium 20 mcg-albuterol 100 1 puff INHALATION Q6H 07/20/20 08/03/20 History mcg/actuation mist for inhalation ketoconazole 2 % shampoo 1 applic TOPICAL DAILY PRN 07/20/20 08/09/20 History multivitamin 1 tab PO QDAY 07/20/20 08/03/20 History mupirocin 2 % topical ointment 1 applic TOPICAL BID 07/20/20 08/03/20 History naloxone 4 mg/actuation nasal spray 4 mg INTRANASAL PRN PRN 07/20/20 08/09/20 History nutritional supplements ea PO 07/20/20 08/03/20 History oxybutynin chloride 5 mg tablet 5 mg PO QDAY 07/20/20 08/03/20 History polyethylene glycol 3350(bulk) ea MISCELLANEOUS 07/20/20 08/03/20 History pramipexole 1 mg tablet 1 mg PO QDAY 07/20/20 08/03/20 History pregabalin 75 mg capsule 75 mg PO BID 07/20/20 08/09/20 History sertraline 100 mg tablet 100 mg PO QDAY 07/20/20 08/03/20 History urinal, non-specific 07/20/20 08/03/20 History albuterol 20 mcg INHALATION Q4-6HP PRN 08/09/20 08/09/20 History Allergies Allergy/AdvReac Type Severity Reaction Status Date / Time ssri AdvReac Severe hallucinati Uncoded 08/09/20 14:47 ons EXAM Constitutional Vitals: Temp Pulse Resp BP Pulse Ox 98.6 F 105 H 34 H 117/59 88 L 08/09/20 19:05 08/09/20 19:05 08/09/20 19:07 08/09/20 19:05 08/09/20 19:05 Exam: General: Alert, Awake, No acute Distress Eyes/N/T: EOMI, PERRL, dry MM Head/Neck: neck supple, normocephalic atraumatic CV: RRR, 2/6 SM,normal s1/s2 Pulm: Clear b/l, no wheezing/rhonchi/rales Abd: soft, nontender, +BS x4 Ext: no clubbing/cyanosis. RUE hand/arm erythema/tenderness/warmth Neuro: Alert, moves all extremities, CN 2-12 grossly intact, sensations intact b/l upper/lower Skin: warm/dry DATA Data Completed and Pending Labs: Labs from last 24 hours 08/09/20 08/09/20 08/09/20 14:49 14:38 14:38 WBC RBC Hgb Hct MCV MCH MCHC RDW Plt Count MPV Neut % (Auto) Lymph % (Auto) [place] % (Auto) Eos % (Auto) Baso % (Auto) Lymph # (Auto) [place] # (Auto) Eos # (Auto) Baso # (Auto) Absolute Neutrophils ESR Pending VBG Lactic Acid Sodium Potassium Chloride Carbon Dioxide Anion Gap BUN Creatinine POC Creatinine GFR Calculation Glucose Calcium Magnesium Total Bilirubin AST ALT Alkaline Phosphatase C-Reactive Protein 11.40 H Total Protein Albumin Globulin Albumin/Globulin Ratio Urine Color Yellow Urine Appearance Hazy A Urine pH 5.0 Ur Specific [place] 1.023 Urine Protein 100 A Urine Glucose (UA) Neg Urine Ketones 5 A Urine Occult Blood Neg Urine Nitrate Neg Urine Bilirubin Neg Urine Urobilinogen 2.0 A Ur Leukocyte Esterase Neg Urine RBC 1 Urine WBC 2 Ur Squamous Epith Cells 2 Urine Bacteria None Hyaline Casts 4 H Urine Mucus Many A 08/09/20 08/09/20 08/09/20 14:15 14:15 14:15 WBC RBC Hgb Hct MCV MCH MCHC RDW Plt Count MPV Neut % (Auto) Lymph % (Auto) [place] % (Auto) Eos % (Auto) Baso % (Auto) Lymph # (Auto) [place] # (Auto) Eos # (Auto) Baso # (Auto) Absolute Neutrophils ESR VBG Lactic Acid 1.9 Sodium 136 Potassium 2.7 L* Chloride 95 L Carbon Dioxide 29 Anion Gap 12.0 BUN 16 Creatinine 0.7 POC Creatinine Pending GFR Calculation 88 Glucose 160 H Calcium 8.9 Magnesium 1.2 L Total Bilirubin 0.5 AST 15 ALT < 5 Alkaline Phosphatase 71 C-Reactive Protein Total Protein 6.5 Albumin 3.3 Globulin 3.2 Albumin/Globulin Ratio 1.0 Urine Color Urine Appearance Urine pH Ur Specific [place] Urine Protein Urine Glucose (UA) Urine Ketones Urine Occult Blood Urine Nitrate Urine Bilirubin Urine Urobilinogen Ur Leukocyte Esterase Urine RBC Urine WBC Ur Squamous Epith Cells Urine Bacteria Hyaline Casts Urine Mucus 08/09/20 14:15 WBC 6.6 RBC 5.03 Hgb 10.3 L Hct 34.0 L MCV 67.6 L MCH 20.5 L MCHC 30.3 L RDW 16.1 H Plt Count 255 MPV Neut % (Auto) 81.1 H Lymph % (Auto) 10.2 L [place] % (Auto) 7.3 Eos % (Auto) 0.8 Baso % (Auto) 0.6 Lymph # (Auto) 0.67 L [place] # (Auto) 0.48 Eos # (Auto) 0.05 Baso # (Auto) 0.04 Absolute Neutrophils 5.34 ESR VBG Lactic Acid Sodium Potassium Chloride Carbon Dioxide Anion Gap BUN Creatinine POC Creatinine GFR Calculation Glucose Calcium Magnesium Total Bilirubin AST ALT Alkaline Phosphatase C-Reactive Protein Total Protein Albumin Globulin Albumin/Globulin Ratio Urine Color Urine Appearance Urine pH Ur Specific [place] Urine Protein Urine Glucose (UA) Urine Ketones Urine Occult Blood Urine Nitrate Urine Bilirubin Urine Urobilinogen Ur Leukocyte Esterase Urine RBC Urine WBC Ur Squamous Epith Cells Urine Bacteria Hyaline Casts Urine Mucus A/P Narrative A/P Narrative: A: *RUE Cellulitis w/?abscess-septic joint: *Sepsis: 2/2 above -Hypotension resolved in the ED *Hypkalemia/mag: *h/o PE: On anticoagulation *COPD(): *h/o CVA: several months ago in [place] *Anemia, chronic *Depression/anxiety: *GERD: *Chronic back pain: *?Adrenal insufficiency: ?On fludrocortisone *h/o RA: P: -Cefepime, pending BC/fluid cx -Follow-up aspiration analysis, Dr. Emmanuel following -Electrolyte replacement -Continue home Eliquis/aspirin -[facility] IH's, -home fludrocortisone -Clarify home medications -records from [place] -pt/ot -ppx: eliquis/home H2 Time Spent With Patient Time: Total time spent is greater than 50% in coordination of care (as documented) at patient's floor/unit and/or counseling patient:
[2020-08-09] MEDS ORDERED: POTASSIUM CHLORIDE 40 MEQ in DEXTROSE 5% IN WATER 500 ML IV PRN (21:40)
[2020-08-09] MEDS ORDERED: ONDANSETRON 4 MG/2 ML VIAL IV PRN (21:40)
[2020-08-09] MEDS ORDERED: IPRATROPIUM/ALBUTEROL 3 ML AMPUL.NEB NEB PRN (21:40)
[2020-08-09] MEDS ORDERED: 0.9 % SODIUM CHLORIDE 1,000 ML IV SCH (21:40)
[2020-08-09] MEDS ORDERED: LACTULOSE 20 GM/30 ML ORAL.SOL PO PRN (21:40)
[2020-08-09] MEDS ORDERED: POTASSIUM CHLORIDE 20 MEQ TABLET PO PRN (21:40)
[2020-08-09] MEDS ORDERED: MAGNESIUM SULFATE 2 GM/50 ML BAG IV PRN (21:40)
[2020-08-09] MEDS ORDERED: ACETAMINOPHEN 325 MG TABLET PO PRN (21:40)
[2020-08-09] MEDS ORDERED: POLYETHYLENE GLYCOL 3350 17 GM PACKET PO PRN (21:40)
[2020-08-09] MEDS ORDERED: SENNOSIDES 1 TABLET PO PRN (21:40)
[2020-08-09] MEDS: CEFEPIME 2 GM VIAL IV SCH (22:06)
[2020-08-09] MEDS ORDERED: MAGNESIUM SULFATE 8.12 MEQ/2 ML VIAL ONE (22:06)
[2020-08-09] MEDS: 0.9 % SODIUM CHLORIDE 10 ML SYRINGE IV SCH (22:07)
[2020-08-09 22:19] LABS: Anisocytosis 1+ (None Seen); Hypochromasia 2+ (None Seen); Lymphocytes % 11 % (15-49); Microcytosis 2+ (None Seen); Monocytes % (Manual) 3 % (1-12); Ovalocytes 1+ (None Seen); Platelet Estimate NORMAL (Normal); Poikilocytosis 1+ (None Seen); Polychromasia 1+ (None Seen); RBC Morphology ABNORMAL (Normal); Segmented Neutrophils % 86 % (38-78)
[2020-08-09 22:25] LABS: Crystals,Body Fluid None Seen (None Seen)
[2020-08-09 22:28] LABS: Appearance,Synovial Fluid Bloody; Color,Synovial Fluid Red; Lymphocytes,Synovial Fluid 16 %; Neutrophils,Synovial Fluid 27 % (0-25); Nucleated Cells,Synovial Fld 577 /cumm; Other Cells,Synovial Fluid 57 %
[2020-08-09 23:02] LABS: Glucose,Synovial Fluid 151 mg/dL; Uric Acid,Synovial Fluid 3.3 mg/dL (0.0-6.0)
[2020-08-10] MEDS: 0.9 % SODIUM CHLORIDE 10 ML SYRINGE IV SCH ×3 (05:39→20:50)
[2020-08-10] MEDS: PANTOPRAZOLE 40 MG PACKET PO SCH (07:06)
[2020-08-10] MEDS: DOCUSATE SODIUM 100 MG CAPSULE PO SCH ×2 (07:06→20:50)
[2020-08-10 07:24] LABS: Hematocrit 28.4 % (41.0-55.0); Hemoglobin 8.5 g/dL (13.5-16.5); Mean Cell Volume 68.4 fL (80.0-100.0); Mean Corpuscular HGB Conc 29.9 g/dL (31.0-36.0); Mean Platelet Volume 10.2 fL (7.4-10.4); Platelet Count 219 K/mcL (140-440); RBC 4.15 M/mcL (4.50-5.90); Red Cell Distribution Width 16.2 % (11.5-14.5); WBC 5.4 K/mcL (4.5-11.0)
--- NOTE | 2020-08-10 07:34 | Ultrasound Report ---
History: Severe right shoulder pain, fever, elevated white blood cell count, joint effusion, rheumatoid arthritis TECHNIQUE: The procedure and risks were explained the patient consented. A large joint effusion is seen in the right shoulder. The overlying skin was prepped with ChloraPrep then anesthetized with 1% lidocaine. Using ultrasound guidance a Yueh needle was inserted. 50 cc of bloody fluid was removed and sent to laboratory for fluid analysis and culture. A small amount of residual fluid was present which could not be drained without performing multiple needle sticks. He tolerated the procedure well without complication. IMPRESSION: Successful aspiration of 50 cc of cloudy bloody fluid from the right shoulder joint Interpreted and Authenticated by: Stephen Warner 08/10/20
[2020-08-10 07:35] LABS: ALT/SGPT < 5 U/L (<40); AST/SGOT 12 U/L (<40); Albumin 2.7 gm/dL (3.2-5.2); Albumin/Globulin Ratio 0.9 (1.0-2.3); Alkaline Phosphatase 52 U/L (39-117); Bilirubin,Direct < 0.2 mg/dL (0-0.3); Bilirubin,Total 0.3 mg/dL (0.1-1.0); Blood Urea Nitrogen 13 mg/dL (8-23); Calcium 8.2 mg/dL (8.6-10.4); Carbon Dioxide 29 mmol/L (22-30); Chloride 103 mmol/L (96-108); Globulin 2.9 gm/dL (2.2-3.7); Glomerular Filtration Rate 94; Glucose 96 mg/dL (70-105); Lactate Dehydrogenase 129 U/L (135-225); Phosphorous 2.9 mg/dL (2.5-4.5); Triglycerides 63 mg/dL (<150); Uric Acid 3.1 mg/dL (2.5-8.0)
--- NOTE | 2020-08-10 08:07 | Internal Med Progress Note ---
SUBJECTIVE Subjective Patient information: Note initiated : 08/10/20 at 8:03 am Service Date, if different from initiated Date: [] Patient: Juan R Norman 79 y/o M admitted on 08/09/20 for Sepsis. Chief Complaint: [] Interval history: History of present illness: Mr. Norman is a 79 year old M Presents to ED with weakness right upper extremity swelling. He was seen the beginning of July with fever with extensive work-up that was unremarkable. He was sent home but comes back today with increased weakness fevers increased decreased urine output increased right upper extremity swelling and redness. Patient is a poor historian most history is from the chart. Patient states seem to happen overnight with the swelling. It is tender and has had as well. Work-up included ultrasound of the upper extremities which showed no DVT but did show a loculated fluid collection around the right shoulder. He also had redness and swelling of his forearm and hand. He had a early septic-like presentation. He was mildly tachycardic he was tachypneic he had blood pressure that was hypotensive with systolic 88. Lactate was within normal limits. Potassium and mag were low. Case was discussed with Dr. Emmanuel orthopedic surgeon will follow up on the aspiration analysis that is done by radiology. Patient started an empiric antibiotics. 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 He was in the hospital [place] few months ago for a stroke which affected his speech and left-sided weakness he says 08/10 Patient was not sure why he is here I had to remind him why he was here. He did remember me from yesterday. He is only been a in [place] several months. His sister brought him up from [place], patient's passed 8 months ago. Review of Systems: denies headache/fever/chills/nausea/vomiting/chest or abdominal pain/cough/dyspnea/diarrhea. Otherwise see above. Constitutional Vitals: Vital Signs Temp Pulse Resp BP Pulse Ox 97.8 F 77 22 107/58 91 08/10/20 07:27 08/10/20 07:27 08/10/20 07:27 08/10/20 07:27 08/10/20 07:27 Period Temp Pulse Resp BP Sys/Young Pulse Ox Last 24 Hr 97.6 F-102.1 F 73-105 18-41 68-163/41-93 88-100 Intake and Output 08/09/20 08/10/20 08/10/20 21:59 05:59 13:59 Intake Total 2612 172 Output Total 300 Balance 2612 -128 Weight 68.81 kg Intake & Output: Intake & Output 08/09/20 08/10/20 08/10/20 21:59 05:59 13:59 Intake Total 2612 172 Output Total 300 Balance 2612 -128 Weight 68.81 kg Intake: IV 2612 52 Sodium Chloride 0.9% 1,000 ml @ 2000 Wide Open IV BOLUS ONE Rx#: [id number] Magnesium Sulfate 8.12 Meq In 52 52 Dextrose 5% in Water 50 ml @ 52 mls/hr IV ONCE ONE Rx#: [id number] Zosyn 3.375 gm In Dextrose 5% 50 in Water 50 ml @ 100 mls/hr IV ONCE ONE Rx#:[id number] Potassium Chloride 20 Meq In 260 Dextrose 5% in Water 250 ml @ 130 mls/hr IV ONCE ONE Rx#: [id number] Vancomycin 1,000 mg In Sodium 250 Chloride 0.9% 250 ml @ 250 mls/ hr IV ONCE ONE Rx#:[id number] Oral 120 Output: Void Amount 300 Other: Urine Appearance Clear Urine Color Dark Yellow Exam: General: Alert, Awake, No acute Distress Eyes/N/T: EOMI, Head/Neck: neck supple, CV: RRR, 2/6 SM, Pulm: Clear b/l, no wheezing/rhonchi/rales Abd: soft, nontender, +BS x4 Ext: no clubbing/cyanosis. RUE hand/arm erythema/tenderness/warmth improving Neuro: Alert, moves all extremities, Skin: warm/dry OBJ DATA Labs CBC & Chem 7: 08/10/20 06:17 08/10/20 06:17 Labs: Abnormal Lab Results 08/10/20 08/10/20 08/09/20 06:17 06:17 21:47 RBC 4.15 L Hgb 8.5 L Hct 28.4 L MCV 68.4 L MCH 20.5 L MCHC 29.9 L RDW 16.2 H Neut % (Auto) Lymph % (Auto) Lymph # (Auto) Seg Neutrophils % Lymphocytes % RBC Morphology Polychromasia Hypochromasia Poikilocytosis Anisocytosis Microcytosis Ovalocytes ESR Potassium 3.2 L Chloride Anion Gap 6.0 L Creatinine 0.6 L Glucose Calcium 8.2 L Magnesium Lactate Dehydrogenase 129 L C-Reactive Protein Total Protein 5.6 L Albumin 2.7 L Albumin/Globulin Ratio 0.9 L Urine Appearance Urine Protein Urine Ketones Urine Urobilinogen Hyaline Casts Urine Mucus Synovial Neutrophils 27 H 08/09/20 08/09/20 08/09/20 14:49 14:38 14:38 RBC Hgb Hct MCV MCH MCHC RDW Neut % (Auto) Lymph % (Auto) Lymph # (Auto) Seg Neutrophils % Lymphocytes % RBC Morphology Polychromasia Hypochromasia Poikilocytosis Anisocytosis Microcytosis Ovalocytes ESR 42 H Potassium Chloride Anion Gap Creatinine Glucose Calcium Magnesium Lactate Dehydrogenase C-Reactive Protein 11.40 H Total Protein Albumin Albumin/Globulin Ratio Urine Appearance Hazy A Urine Protein 100 A Urine Ketones 5 A Urine Urobilinogen 2.0 A Hyaline Casts 4 H Urine Mucus Many A Synovial Neutrophils 08/09/20 08/09/20 08/09/20 14:29 14:15 14:15 RBC Hgb Hct MCV MCH MCHC RDW Neut % (Auto) Lymph % (Auto) Lymph # (Auto) Seg Neutrophils % 86 H Lymphocytes % 11 L RBC Morphology Abnormal A Polychromasia 1+ A Hypochromasia 2+ A Poikilocytosis 1+ A Anisocytosis 1+ A Microcytosis 2+ A Ovalocytes 1+ A ESR Potassium 2.7 L* Chloride 95 L Anion Gap Creatinine Glucose 160 H Calcium Magnesium 1.2 L Lactate Dehydrogenase C-Reactive Protein Total Protein Albumin Albumin/Globulin Ratio Urine Appearance Urine Protein Urine Ketones Urine Urobilinogen Hyaline Casts Urine Mucus Synovial Neutrophils 08/09/20 14:15 RBC Hgb 10.3 L Hct 34.0 L MCV 67.6 L MCH 20.5 L MCHC 30.3 L RDW 16.1 H Neut % (Auto) 81.1 H Lymph % (Auto) 10.2 L Lymph # (Auto) 0.67 L Seg Neutrophils % Lymphocytes % RBC Morphology Polychromasia Hypochromasia Poikilocytosis Anisocytosis Microcytosis Ovalocytes ESR Potassium Chloride Anion Gap Creatinine Glucose Calcium Magnesium Lactate Dehydrogenase C-Reactive Protein Total Protein Albumin Albumin/Globulin Ratio Urine Appearance Urine Protein Urine Ketones Urine Urobilinogen Hyaline Casts Urine Mucus Synovial Neutrophils Meds: Medications Acetaminophen (Acetaminophen 325 Mg Tablet) 650 mg PO Q6HP PRN PRN Reason: PAIN/FEVER > 101 Hydrocodone Bitart/Acetaminophen (Hydrocodone/Apap 5/325mg Tablet) 1 tab PO Q4HP PRN PRN Reason: PAIN LEVEL 3-6 Albuterol/Ipratropium (Ipratropium/Albuterol 3 Ml Ampul.Neb) 3 ml NEB Q4HP PRN PRN Reason: Shortness Of Breath Cefepime HCl (Cefepime 2 Gm Vial) 2 gm IV Q12H [facility]; Protocol Last Admin: 08/09/20 22:06 Dose: 2 gm Documented by: Docusate Sodium (Docusate Sodium 100 Mg Capsule) 100 mg PO BID [facility] Last Admin: 08/10/20 07:06 Dose: 100 mg Documented by: Potassium Chloride 40 meq/ (Dextrose) 520 mls @ 130 mls/hr IV UD PRN PRN Reason: Potassium < 3 Magnesium Sulfate (Magnesium Sulfate) 2 gm in 50 mls @ 50 mls/hr IV UD PRN PRN Reason: Magnesium </= 1.6 Sodium Chloride (Sodium Chloride 0.9%) 1,000 mls @ 75 mls/hr IV .[id number] [facility] Stop: 08/10/20 10:59 Last Admin: 08/09/20 22:00 Dose: 75 mls/hr Documented by: Lactulose (Lactulose 20 Gm/30 Ml Oral.Leanna) 20 gm PO DAILYP PRN PRN Reason: Constipation Ondansetron HCl (Ondansetron 4 Mg/2 Ml Vial) 4 mg IV Q4HP PRN PRN Reason: Nausea And Vomiting Pantoprazole Sodium (Pantoprazole 40 Mg Packet) 40 mg PO QAMAC [facility] Last Admin: 08/10/20 07:06 Dose: 40 mg Documented by: Polyethylene Glycol (Polyethylene Glycol 3350 17 Gm Packet) 17 gm PO DAILYP PRN PRN Reason: Constipation Potassium Chloride (Potassium Chloride 20 Meq Tablet) 40 meq PO UD PRN PRN Reason: Potssium is 3-3.5 Potassium Chloride (Potassium Chloride 20 Meq Tablet) 40 meq PO UD PRN PRN Reason: Potassium < 3 Senna (Sennosides 1 Tablet) 2 tab PO DAILYP PRN PRN Reason: Constipation Sodium Chloride (0.9 % Sodium Chloride 10 Ml Syringe) 10 ml IV Q8 [facility] Last Admin: 08/10/20 05:39 Dose: Not Given Documented by: A/P Narrative A/P Narrative: A: *RUE Cellulitis w/?abscess-septic joint: *Sepsis: 2/2 above -Hypotension resolved in the ED -febrile yesterday *Hypkalemia/mag: improved *h/o PE: On anticoagulation *COPD(): *h/o CVA: several months ago in [place] *Anemia, chronic *Depression/anxiety: *GERD: *Chronic back pain: *?Adrenal insufficiency: ?On fludrocortisone *h/o RA: *Right Shoulder erosive arthritis: arthrocentesis fluid unremarkable P: -Cefepime, pending BC -Electrolyte replacement -Continue home Eliquis/aspirin -[facility], -home fludrocortisone -records from [place] -pt/ot -ppx: eliquis/home H2 Time Spent With Patient Time: Total time spent is greater than 50% in coordination of care (as documented) at patient's floor/unit and/or counseling patient: QUALITY VTE Deep Vein Thrombosis/Pulmonary Embolism Present on Admission: No
[2020-08-10 08:18] LABS: Anisocytosis 1+ (None Seen); Band Neutrophils % 1 % (0-10); Eosinophils % (Manual) 4 % (0-7); Hypochromasia FEW (None Seen); Lymphocytes % 13 % (15-49); Monocytes % (Manual) 8 % (1-12); Ovalocytes FEW (None Seen); Platelet Estimate NORMAL (Normal); RBC Morphology ABNORMAL (Normal); Reactive Lymphocytes 1 % (0-2); Segmented Neutrophils % 73 % (38-78); Target Cells RARE (None Seen)
[2020-08-10] MEDS ORDERED: FAMOTIDINE 20 MG TABLET PO SCH (09:00)
[2020-08-10] MEDS ORDERED: DOCUSATE SODIUM 100 MG CAPSULE PO SCH (09:00)
[2020-08-10] MEDS: APIXABAN 5 MG TABLET PO SCH ×2 (10:09→20:50)
[2020-08-10] MEDS: ALLOPURINOL 300 MG TABLET PO SCH (10:09)
[2020-08-10] MEDS: TAMSULOSIN 0.4 MG CAPSULE PO SCH (10:09)
[2020-08-10] MEDS: PREGABALIN 75 MG CAPSULE PO SCH ×2 (10:09→20:50)
[2020-08-10] MEDS: CEFEPIME 2 GM VIAL IV SCH ×2 (10:10→20:50)
[2020-08-10] MEDS: FLUDROCORTISONE 0.1 MG TABLET PO SCH ×2 (10:10→20:50)
[2020-08-10] MEDS: LIDOCAINE PATCH TOPICAL SCH (10:10)
[2020-08-10] MEDS: POTASSIUM CHLORIDE 20 MEQ TABLET PO PRN (10:10)
[2020-08-10] MEDS: Budesonide-Formoterol 160-4.5 mcg/actuation HFA INH SCH (10:21)
[2020-08-10] MEDS: Diclofenac Sodium [Arthritis Pain (Diclofenac)] Gel TOPICAL SCH ×4 (12:28→20:54)
--- NOTE | 2020-08-10 15:35 | Internal Med Progress Note ---
SUBJECTIVE Subjective Patient information: Note initiated : 08/11/20 at 3:31 pm Service Date, if different from initiated Date: [] Patient: Juan R Norman 79 y/o M admitted on 08/09/20 for Sepsis. Chief Complaint: [] Interval history: History of present illness: Mr. Norman is a 79 year old M Presents to ED with weakness right upper extremity swelling. He was seen the beginning of July with fever with extensive work-up that was unremarkable. He was sent home but comes back today with increased weakness fevers increased decreased urine output increased right upper extremity swelling and redness. Patient is a poor historian most history is from the chart. Patient states seem to happen overnight with the swelling. It is tender and has had as well. Work-up included ultrasound of the upper extremities which showed no DVT but did show a loculated fluid collection around the right shoulder. He also had redness and swelling of his forearm and hand. He had a early septic-like presentation. He was mildly tachycardic he was tachypneic he had blood pressure that was hypotensive with systolic 88. Lactate was within normal limits. Potassium and mag were low. Case was discussed with Dr. Emmanuel orthopedic surgeon will follow up on the aspiration analysis that is done by radiology. Patient started an empiric antibiotics. 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 He was in the hospital [place] few months ago for a stroke which affected his speech and left-sided weakness he says 08/10 Patient was not sure why he is here I had to remind him why he was here. He did remember me from yesterday. He is only been a in [place] several months. His sister brought him up from [place], patient's passed 8 months ago. 08/10 Discussed with radiology, CT scan w/ venous phase contrast ordered to evaluate for SVC compression from ectatic aorta. Constitutional Vitals: Vital Signs Temp Pulse Resp BP Pulse Ox 98.8 F 75 18 132/75 98 08/10/20 11:47 08/10/20 11:47 08/10/20 11:47 08/10/20 11:47 08/10/20 11:47 Period Temp Pulse Resp BP Sys/Young Pulse Ox Last 24 Hr 97.6 F-100.8 F 73-105 18-39 68-145/41-93 88-100 Intake and Output 08/10/20 08/10/20 08/10/20 05:59 13:59 21:59 Intake Total 172 1000 Output Total 300 1 Balance -128 999 Intake & Output: Intake & Output 08/10/20 08/10/20 08/10/20 05:59 13:59 21:59 Intake Total 172 1000 Output Total 300 1 Balance -128 999 Intake: IV 52 1000 Sodium Chloride 0.9% 1,000 ml @ 1000 75 mls/hr IV .[id number] [facility] Rx#: [id number] Magnesium Sulfate 8.12 Meq In 52 Dextrose 5% in Water 50 ml @ 52 mls/hr IV ONCE ONE Rx#: [id number] Oral 120 Output: Void Amount 300 # of times incontinent of urine 1 Other: Urine Appearance Clear Urine Color Dark Yellow Stool Size Small Stool Color Brown Stool Consistency Loose # Voids 1 Exam: General: Alert, Awake, No acute Distress Eyes/N/T: EOMI, Head/Neck: neck supple, CV: RRR, 2/6 SM, Pulm: Clear b/l, no wheezing/rhonchi/rales Abd: soft, nontender, +BS x4 Ext: no clubbing/cyanosis. RUE hand edema present, no redness appreciated Neuro: Alert, moves all extremities, Skin: warm/dry OBJ DATA Labs CBC & Chem 7: 08/11/20 05:46 08/11/20 05:46 Labs: Abnormal Lab Results 08/10/20 08/10/20 08/09/20 06:17 06:17 21:47 RBC 4.15 L Hgb 8.5 L Hct 28.4 L MCV 68.4 L MCH 20.5 L MCHC 29.9 L RDW 16.2 H Neut % (Auto) Lymph % (Auto) Lymph # (Auto) Seg Neutrophils % Lymphocytes % 13 L RBC Morphology Abnormal A Polychromasia Hypochromasia Few A Poikilocytosis Anisocytosis 1+ A Microcytosis Target Cells Rare A Ovalocytes Few A ESR Potassium 3.2 L Chloride Anion Gap 6.0 L Creatinine 0.6 L Glucose Calcium 8.2 L Magnesium Lactate Dehydrogenase 129 L C-Reactive Protein Total Protein 5.6 L Albumin 2.7 L Albumin/Globulin Ratio 0.9 L Urine Appearance Urine Protein Urine Ketones Urine Urobilinogen Hyaline Casts Urine Mucus Synovial Neutrophils 27 H 08/09/20 08/09/20 08/09/20 14:49 14:38 14:38 RBC Hgb Hct MCV MCH MCHC RDW Neut % (Auto) Lymph % (Auto) Lymph # (Auto) Seg Neutrophils % Lymphocytes % RBC Morphology Polychromasia Hypochromasia Poikilocytosis Anisocytosis Microcytosis Target Cells Ovalocytes ESR 42 H Potassium Chloride Anion Gap Creatinine Glucose Calcium Magnesium Lactate Dehydrogenase C-Reactive Protein 11.40 H Total Protein Albumin Albumin/Globulin Ratio Urine Appearance Hazy A Urine Protein 100 A Urine Ketones 5 A Urine Urobilinogen 2.0 A Hyaline Casts 4 H Urine Mucus Many A Synovial Neutrophils 08/09/20 08/09/20 08/09/20 14:29 14:15 14:15 RBC Hgb Hct MCV MCH MCHC RDW Neut % (Auto) Lymph % (Auto) Lymph # (Auto) Seg Neutrophils % 86 H Lymphocytes % 11 L RBC Morphology Abnormal A Polychromasia 1+ A Hypochromasia 2+ A Poikilocytosis 1+ A Anisocytosis 1+ A Microcytosis 2+ A Target Cells Ovalocytes 1+ A ESR Potassium 2.7 L* Chloride 95 L Anion Gap Creatinine Glucose 160 H Calcium Magnesium 1.2 L Lactate Dehydrogenase C-Reactive Protein Total Protein Albumin Albumin/Globulin Ratio Urine Appearance Urine Protein Urine Ketones Urine Urobilinogen Hyaline Casts Urine Mucus Synovial Neutrophils 08/09/20 14:15 RBC Hgb 10.3 L Hct 34.0 L MCV 67.6 L MCH 20.5 L MCHC 30.3 L RDW 16.1 H Neut % (Auto) 81.1 H Lymph % (Auto) 10.2 L Lymph # (Auto) 0.67 L Seg Neutrophils % Lymphocytes % RBC Morphology Polychromasia Hypochromasia Poikilocytosis Anisocytosis Microcytosis Target Cells Ovalocytes ESR Potassium Chloride Anion Gap Creatinine Glucose Calcium Magnesium Lactate Dehydrogenase C-Reactive Protein Total Protein Albumin Albumin/Globulin Ratio Urine Appearance Urine Protein Urine Ketones Urine Urobilinogen Hyaline Casts Urine Mucus Synovial Neutrophils Meds: Medications Acetaminophen (Acetaminophen 325 Mg Tablet) 650 mg PO Q6HP PRN PRN Reason: PAIN/FEVER > 101 Hydrocodone Bitart/Acetaminophen (Hydrocodone/Apap 5/325mg Tablet) 1 tab PO Q4HP PRN PRN Reason: PAIN LEVEL 3-6 Albuterol/Ipratropium (Ipratropium/Albuterol 3 Ml Ampul.Neb) 3 ml NEB Q4HP PRN PRN Reason: Shortness Of Breath Allopurinol (Allopurinol 300 Mg Tablet) 300 mg PO QDAY [facility] Last Admin: 08/10/20 10:09 Dose: 300 mg Documented by: Apixaban (Apixaban 5 Mg Tablet) 5 mg PO BID [facility] Last Admin: 08/10/20 10:09 Dose: 5 mg Documented by: Cefepime HCl (Cefepime 2 Gm Vial) 2 gm IV Q12H [facility]; Protocol Last Admin: 08/10/20 10:10 Dose: 2 gm Documented by: Docusate Sodium (Docusate Sodium 100 Mg Capsule) 100 mg PO BID [facility] Last Admin: 08/10/20 07:06 Dose: 100 mg Documented by: Fludrocortisone Acetate (Fludrocortisone 0.1 Mg Tablet) 0.1 mg PO BID [facility] Last Admin: 08/10/20 10:10 Dose: 0.1 mg Documented by: Potassium Chloride 40 meq/ (Dextrose) 520 mls @ 130 mls/hr IV UD PRN PRN Reason: Potassium < 3 Magnesium Sulfate (Magnesium Sulfate) 2 gm in 50 mls @ 50 mls/hr IV UD PRN PRN Reason: Magnesium </= 1.6 Lactulose (Lactulose 20 Gm/30 Ml Oral.Leanna) 20 gm PO DAILYP PRN PRN Reason: Constipation Lidocaine (Lidocaine Patch) 1 patch TOPICAL QDAY [facility] Last Admin: 08/10/20 10:10 Dose: 1 patch Documented by: Ondansetron HCl (Ondansetron 4 Mg/2 Ml Vial) 4 mg IV Q4HP PRN PRN Reason: Nausea And Vomiting Pantoprazole Sodium (Pantoprazole 40 Mg Packet) 40 mg PO QAMAC [facility] Last Admin: 08/10/20 07:06 Dose: 40 mg Documented by: Budesonide- Formoterol 160-4.5 Mcg/Actuation Hfa 2 dose INH DAILY [facility] Last Admin: 08/10/20 10:21 Dose: Not Given Documented by: Diclofenac Sodium [ Arthritis Pain ( Diclofenac)] Gel 1 dose TOPICAL QID [facility] Last Admin: 08/10/20 15:27 Dose: Not Given Documented by: Polyethylene Glycol (Polyethylene Glycol 3350 17 Gm Packet) 17 gm PO DAILYP PRN PRN Reason: Constipation Potassium Chloride (Potassium Chloride 20 Meq Tablet) 40 meq PO UD PRN PRN Reason: Potssium is 3-3.5 Last Admin: 08/10/20 10:10 Dose: 40 meq Documented by: Potassium Chloride (Potassium Chloride 20 Meq Tablet) 40 meq PO UD PRN PRN Reason: Potassium < 3 Potassium Chloride (Potassium Chloride 20 Meq Tablet) 20 meq PO QAMCC [facility] Pregabalin (Pregabalin 75 Mg Capsule) 75 mg PO BID [facility] Last Admin: 08/10/20 10:09 Dose: 75 mg Documented by: Senna (Sennosides 1 Tablet) 2 tab PO DAILYP PRN PRN Reason: Constipation Sodium Chloride (0.9 % Sodium Chloride 10 Ml Syringe) 10 ml IV Q8 [facility] Last Admin: 08/10/20 12:59 Dose: 10 ml Documented by: Tamsulosin HCl (Tamsulosin 0.4 Mg Capsule) 0.4 mg PO QDAY [facility] Last Admin: 08/10/20 10:09 Dose: 0.4 mg Documented by: A/P Narrative A/P Narrative: Assessment: 79-year-old male recently moved from [place] living at the [place] admitted for right upper extremity cellulitis and concern for possible septic shoulder. #Bilateral upper extremity edema-Rt>Lt -possible venous obstruction -RUE venous duplex neg for DVT #Possible RUE nonpurulent cellulitis vs venous congestion #Possible sepsis: 2/2 above #Right sided aortic arch #Hypokalemia/mag: improved #h/o PE: On anticoagulation #COPD(): #h/o CVA: several months ago in [place] #Anemia, chronic #Depression/anxiety: #GERD: #Chronic back pain: #?Adrenal insufficiency: ?On fludrocortisone #h/o RA: #Right Shoulder erosive arthritis: arthrocentesis fluid unremarkable P: -Deescalate to Keflex, discontinue Cefepime. -CT chest w/ venous phase contrast to evaluate for SVC compression -ECHO -Electrolyte replacement prn -Continue home Eliquis/aspirin -[facility], -home fludrocortisone -records from [place] -pt/ot -ppx: eliquis/home H2 Time Spent With Patient Time: Total time spent is greater than 50% in coordination of care (as documented) at patient's floor/unit and/or counseling patient: QUALITY VTE Deep Vein Thrombosis/Pulmonary Embolism Present on Admission: No
[2020-08-10] MEDS: HYDROcodone/APAP 5/325MG TABLET PO PRN (23:14)
[2020-08-11] MEDS: 0.9 % SODIUM CHLORIDE 10 ML SYRINGE IV SCH ×3 (05:58→20:41)
[2020-08-11] MEDS: PANTOPRAZOLE 40 MG PACKET PO SCH (06:53)
[2020-08-11 07:51] LABS: Basophils # (Auto) 0.05 K/mcL (0.00-0.20); Basophils % (Auto) 0.8 % (0.0-2.0); Eosinophils # (Auto) 0.26 K/mcL (0.00-0.70); Eosinophils % (Auto) 4.4 % (0.0-7.0); Hematocrit 27.4 % (41.0-55.0); Hemoglobin 8.2 g/dL (13.5-16.5); Lymphocytes # (Auto) 1.07 K/mcL (1.50-4.80); Lymphocytes % (Auto) 18.1 % (15.0-49.0); Mean Corpuscular HGB Conc 29.9 g/dL (31.0-36.0); Monocytes # (Auto) 0.45 K/mcL (0.10-0.90); Monocytes % (Auto) 7.6 % (1.0-12.0); Neutrophils % (Auto) 69.1 % (38.0-78.0); Platelet Count 197 K/mcL (140-440); RBC 3.97 M/mcL (4.50-5.90); Red Cell Distribution Width 16.4 % (11.5-14.5); WBC 5.9 K/mcL (4.5-11.0)
[2020-08-11 08:11] LABS: Blood Urea Nitrogen 14 mg/dL (8-23); Calcium 8.7 mg/dL (8.6-10.4); Carbon Dioxide 28 mmol/L (22-30); Chloride 105 mmol/L (96-108); Glomerular Filtration Rate 101; Glucose 87 mg/dL (70-105)
[2020-08-11] MEDS: DOCUSATE SODIUM 100 MG CAPSULE PO SCH ×2 (10:26→20:40)
[2020-08-11] MEDS: POTASSIUM CHLORIDE 20 MEQ TABLET PO SCH (10:26)
[2020-08-11] MEDS: TAMSULOSIN 0.4 MG CAPSULE PO SCH (10:27)
[2020-08-11] MEDS: ALLOPURINOL 300 MG TABLET PO SCH (10:27)
[2020-08-11] MEDS: PREGABALIN 75 MG CAPSULE PO SCH ×2 (10:27→20:40)
[2020-08-11] MEDS: APIXABAN 5 MG TABLET PO SCH ×2 (10:27→20:40)
[2020-08-11 10:37] LABS: Erythrocyte Sedimentation Rate 47 mm/hr (0-15)
[2020-08-11] MEDS: Budesonide-Formoterol 160-4.5 mcg/actuation HFA INH SCH (10:46)
[2020-08-11] MEDS: LIDOCAINE PATCH TOPICAL SCH (10:46)
[2020-08-11] MEDS: Diclofenac Sodium [Arthritis Pain (Diclofenac)] Gel TOPICAL SCH (10:48)
[2020-08-11] MEDS: CEFEPIME 2 GM VIAL IV SCH (10:48)
[2020-08-11] MEDS: FLUDROCORTISONE 0.1 MG TABLET PO SCH ×2 (11:06→20:41)
[2020-08-11] MEDS: HYDROcodone/APAP 5/325MG TABLET PO PRN (11:10)
[2020-08-11] MEDS ORDERED: hydrOXYzine 25 MG TABLET PO PRN (12:31)
[2020-08-11] MEDS ORDERED: IOPAMIDOL 100 ML BOTTLE IV ONE (15:42)
--- NOTE | 2020-08-11 16:05 | Cat Scan Report ---
History: Severe edema in the right arm, evaluate for superior vena cava obstruction TECHNIQUE: Following injection of intravenous nonionic contrast the patient was scanned during the venous phase from the level of the larynx to the diaphragm. Sagittal and coronal reformats were created. Radiation exposure was limited using dose reduction technology. Patient has a right-sided aortic arch. It is ectatic and extends to the right apex. Above the aortic valve the aorta is 4.6 cm in transverse diameter. The ascending and proximal descending aorta are elongated and ectatic. Distal portion of the ascending aorta near the apex is 4.0 cm. In the distal arch and measures 4.6 cm. Mid portions of descending aorta is 4.0 cm and distal thoracic aorta is 3.4 cm. The aorta crosses the midline into the left side of the abdomen at the level of the diaphragm. There is no evidence of aortic dissection. There is a moderate amount calcified plaque along the wall of the arch. There is also moderate calcification throughout both subclavian arteries with milder plaque formation in the carotids. The elongated and ectatic ascending aorta is causing severe compression of the right innominate vein between the artery and the costochondral junction of the right first rib. The brachiocephalic vein is patent. There is a relatively large but normal right internal jugular vein. The right subclavian vein and axillary vein are normal in caliber without evidence of thrombosis. The left subclavian vein and innominate vein are normal and drain partially into the azygos vein and partially into the superior vena cava. The superior vena cava is patent and noncompressed. The pulmonary arteries are normal with no intraluminal filling defects. The main pulmonary artery is dilated measures 4.2 cm. There are several bands of scar or atelectasis in both lower lobes and inferior segment lingula. There is no consolidating infiltrate. No pulmonary mass is present. Severe inflammatory destructive arthritis is again seen in the right shoulder. There is a large joint effusion. This is been drained days ago. The fluid has reaccumulated. The inflammatory and degenerative changes in the right shoulder are not causing compression of the adjacent arteries or veins. Incidentally noted are multiple stones within a contracted gallbladder. The heart is normally oriented with the apex on the left side. There is a moderate amount of calcified plaque in the root of the aortic valve. There is also moderately severe atherosclerotic disease involving all of the coronary arteries. 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
[2020-08-11] MEDS: CEPHALEXIN 500 MG CAPSULE PO SCH ×2 (17:23→20:40)
[2020-08-11] MEDS: POTASSIUM CHLORIDE 20 MEQ TABLET PO PRN (20:40)
[2020-08-12] MEDS: 0.9 % SODIUM CHLORIDE 10 ML SYRINGE IV SCH ×3 (05:24→20:41)
[2020-08-12 07:49] LABS: Basophils # (Auto) 0.05 K/mcL (0.00-0.20); Basophils % (Auto) 0.9 % (0.0-2.0); Eosinophils # (Auto) 0.26 K/mcL (0.00-0.70); Eosinophils % (Auto) 4.8 % (0.0-7.0); Hematocrit 33.1 % (41.0-55.0); Hemoglobin 10.3 g/dL (13.5-16.5); Lymphocytes # (Auto) 1.12 K/mcL (1.50-4.80); Lymphocytes % (Auto) 20.9 % (15.0-49.0); Mean Cell Volume 67.1 fL (80.0-100.0); Mean Corpuscular HGB Conc 31.1 g/dL (31.0-36.0); Monocytes # (Auto) 0.33 K/mcL (0.10-0.90); Monocytes % (Auto) 6.1 % (1.0-12.0); Neutrophils % (Auto) 67.3 % (38.0-78.0); Platelet Count 237 K/mcL (140-440); RBC 4.93 M/mcL (4.50-5.90); Red Cell Distribution Width 16.4 % (11.5-14.5); WBC 5.4 K/mcL (4.5-11.0)
[2020-08-12 08:14] LABS: ALT/SGPT 6 U/L (<40); AST/SGOT 15 U/L (<40); Albumin 3.5 gm/dL (3.2-5.2); Albumin/Globulin Ratio 1.1 (1.0-2.3); Alkaline Phosphatase 65 U/L (39-117); Bilirubin,Total 0.5 mg/dL (0.1-1.0); Blood Urea Nitrogen 9 mg/dL (8-23); Calcium 9.5 mg/dL (8.6-10.4); Carbon Dioxide 28 mmol/L (22-30); Chloride 101 mmol/L (96-108); Globulin 3.1 gm/dL (2.2-3.7); Glomerular Filtration Rate 101; Glucose 83 mg/dL (70-105)
[2020-08-12 08:15] LABS: Iron 48 ug/dL (61-157); Iron 49 ug/dL (61-157); TIBC Calculation 163 ug/dl (228-428); Transferrin % Saturation 29 % (20-50)
[2020-08-12 08:22] LABS: Ferritin 262.4 ng/mL (30.0-400.0)
[2020-08-12] MEDS: PANTOPRAZOLE 40 MG PACKET PO SCH (08:43)
[2020-08-12] MEDS: TAMSULOSIN 0.4 MG CAPSULE PO SCH (08:44)
[2020-08-12] MEDS: APIXABAN 5 MG TABLET PO SCH ×2 (08:44→20:38)
[2020-08-12] MEDS: PREGABALIN 75 MG CAPSULE PO SCH ×2 (08:45→20:37)
[2020-08-12] MEDS: DOCUSATE SODIUM 100 MG CAPSULE PO SCH ×2 (08:45→20:38)
[2020-08-12] MEDS: CEPHALEXIN 500 MG CAPSULE PO SCH ×4 (08:45→20:37)
[2020-08-12] MEDS: ALLOPURINOL 300 MG TABLET PO SCH (08:46)
[2020-08-12] MEDS: FLUDROCORTISONE 0.1 MG TABLET PO SCH ×2 (08:49→20:38)
[2020-08-12] MEDS: POTASSIUM CHLORIDE 20 MEQ TABLET PO SCH (08:49)
[2020-08-12] MEDS: LIDOCAINE PATCH TOPICAL SCH (08:50)
[2020-08-12] MEDS: Diclofenac Sodium [Arthritis Pain (Diclofenac)] Gel TOPICAL SCH (09:26)
[2020-08-12] MEDS: Budesonide-Formoterol 160-4.5 mcg/actuation HFA INH SCH (09:27)
--- NOTE | 2020-08-12 13:21 | Internal Med Progress Note ---
SUBJECTIVE Subjective Patient information: Note initiated : 08/12/20 at 1:14 pm Service Date, if different from initiated Date: [] Patient: Juan R Norman 79 y/o M admitted on 08/09/20 for Sepsis. Chief Complaint: [] Interval history: History of present illness: Mr. Norman is a 79 year old M Presents to ED with weakness right upper extremity swelling. He was seen the beginning of July with fever with extensive work-up that was unremarkable. He was sent home but comes back today with increased weakness fevers increased decreased urine output increased right upper extremity swelling and redness. Patient is a poor historian most history is from the chart. Patient states seem to happen overnight with the swelling. It is tender and has had as well. Work-up included ultrasound of the upper extremities which showed no DVT but did show a loculated fluid collection around the right shoulder. He also had redness and swelling of his forearm and hand. He had a early septic-like presentation. He was mildly tachycardic he was tachypneic he had blood pressure that was hypotensive with systolic 88. Lactate was within normal limits. Potassium and mag were low. Case was discussed with Dr. Emmanuel orthopedic surgeon will follow up on the aspiration analysis that is done by radiology. Patient started an empiric antibiotics. Patient states that he lived in [place] up until several months ago his had and then he had problems with seam taper machine so his sister went down there and brought him back and [place] living [place] since. He was in the hospital [place] few months ago for a stroke which affected his speech and left-sided weakness he says 08/10 Patient was not sure why he is here I had to remind him why he was here. He did remember me from yesterday. He is only been a in [place] several months. His sister brought him up from [place], patient's passed 8 months ago. 08/10 Discussed with radiology, CT scan w/ venous phase contrast ordered to evaluate for SVC compression from ectatic aorta. 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 Discussed with IR at [facility]-recommended against stent placement due to high rate of stent failure for this vascular issue. IR recommended follow up with vascular surgery to discuss possible treatment options. Likely discharge tomorrow to SNF for rehab and will try to arrange for a referral to [facility] on Friday. Constitutional Vitals: Vital Signs Temp Pulse Resp BP Pulse Ox 98.4 F 86 18 132/66 93 08/12/20 12:00 08/12/20 12:00 08/12/20 12:00 08/12/20 12:00 08/12/20 12:00 Period Temp Pulse Resp BP Sys/Young Pulse Ox Last 24 Hr 97.3 F-99.2 F 75-100 16-20 132-150/66-88 91-99 Intake and Output 08/11/20 08/12/20 08/12/20 21:59 05:59 13:59 Intake Total 400 620 300 Output Total 1 403 Balance 399 217 300 Weight 63.911 kg Intake & Output: Intake & Output 08/11/20 08/12/20 08/12/20 21:59 05:59 13:59 Intake Total 400 620 300 Output Total 1 403 Balance 399 217 300 Weight 63.911 kg Intake: Oral 400 620 300 Output: Void Amount 400 # of times incontinent of urine 1 3 Other: Meal Dinner Breakfast Percent of Meal Consumed 25% 100% Feeding Ability Assist with Tray Set Up Independent Urine Appearance Clear Urine Color Bright Yellow Urine Odor Normal Stool Size Moderate Stool Color Brown Stool Consistency Normal for Patient Loose # Voids 1 Exam: General: Alert, Awake, No acute Distress Eyes/N/T: EOMI, Head/Neck: neck supple, CV: RRR, 2/6 SM, Pulm: Clear b/l, no wheezing/rhonchi/rales Abd: soft, nontender, +BS x4 Ext: no clubbing/cyanosis. RUE hand edema present, no redness appreciated Neuro: Alert, moves all extremities, Skin: warm/dry OBJ DATA Labs CBC & Chem 7: 08/12/20 07:16 08/12/20 07:16 Labs: Abnormal Lab Results 08/12/20 08/12/20 08/12/20 07:16 07:16 07:16 RBC Hgb Hct MCV MCH MCHC RDW Neut % (Auto) Lymph % (Auto) Lymph # (Auto) Seg Neutrophils % Lymphocytes % RBC Morphology Polychromasia Hypochromasia Poikilocytosis Anisocytosis Microcytosis Target Cells Ovalocytes ESR Potassium Chloride Anion Gap Creatinine 0.5 L Glucose Calcium Magnesium Iron 49 L 48 L TIBC 163 L Lactate Dehydrogenase C-Reactive Protein 5.50 H Total Protein Albumin Albumin/Globulin Ratio Procalcitonin 0.12 H Urine Appearance Urine Protein Urine Ketones Urine Urobilinogen Hyaline Casts Urine Mucus Synovial Neutrophils 08/12/20 08/11/20 08/11/20 07:16 05:46 05:46 RBC 3.97 L Hgb 10.3 L 8.2 L Hct 33.1 L 27.4 L MCV 67.1 L 69.0 L MCH 20.9 L 20.7 L MCHC 29.9 L RDW 16.4 H 16.4 H Neut % (Auto) Lymph % (Auto) Lymph # (Auto) 1.12 L 1.07 L Seg Neutrophils % Lymphocytes % RBC Morphology Polychromasia Hypochromasia Poikilocytosis Anisocytosis Microcytosis Target Cells Ovalocytes ESR 47 H Potassium Chloride Anion Gap 5.0 L Creatinine 0.5 L Glucose Calcium Magnesium Iron TIBC Lactate Dehydrogenase C-Reactive Protein 8.10 H Total Protein Albumin Albumin/Globulin Ratio Procalcitonin Urine Appearance Urine Protein Urine Ketones Urine Urobilinogen Hyaline Casts Urine Mucus Synovial Neutrophils 08/10/20 08/10/20 08/09/20 06:17 06:17 21:47 RBC 4.15 L Hgb 8.5 L Hct 28.4 L MCV 68.4 L MCH 20.5 L MCHC 29.9 L RDW 16.2 H Neut % (Auto) Lymph % (Auto) Lymph # (Auto) Seg Neutrophils % Lymphocytes % 13 L RBC Morphology Abnormal A Polychromasia Hypochromasia Few A Poikilocytosis Anisocytosis 1+ A Microcytosis Target Cells Rare A Ovalocytes Few A ESR Potassium 3.2 L Chloride Anion Gap 6.0 L Creatinine 0.6 L Glucose Calcium 8.2 L Magnesium Iron TIBC Lactate Dehydrogenase 129 L C-Reactive Protein Total Protein 5.6 L Albumin 2.7 L Albumin/Globulin Ratio 0.9 L Procalcitonin Urine Appearance Urine Protein Urine Ketones Urine Urobilinogen Hyaline Casts Urine Mucus Synovial Neutrophils 27 H 08/09/20 08/09/20 08/09/20 14:49 14:38 14:38 RBC Hgb Hct MCV MCH MCHC RDW Neut % (Auto) Lymph % (Auto) Lymph # (Auto) Seg Neutrophils % Lymphocytes % RBC Morphology Polychromasia Hypochromasia Poikilocytosis Anisocytosis Microcytosis Target Cells Ovalocytes ESR 42 H Potassium Chloride Anion Gap Creatinine Glucose Calcium Magnesium Iron TIBC Lactate Dehydrogenase C-Reactive Protein 11.40 H Total Protein Albumin Albumin/Globulin Ratio Procalcitonin Urine Appearance Hazy A Urine Protein 100 A Urine Ketones 5 A Urine Urobilinogen 2.0 A Hyaline Casts 4 H Urine Mucus Many A Synovial Neutrophils 08/09/20 08/09/20 08/09/20 14:29 14:15 14:15 RBC Hgb Hct MCV MCH MCHC RDW Neut % (Auto) Lymph % (Auto) Lymph # (Auto) Seg Neutrophils % 86 H Lymphocytes % 11 L RBC Morphology Abnormal A Polychromasia 1+ A Hypochromasia 2+ A Poikilocytosis 1+ A Anisocytosis 1+ A Microcytosis 2+ A Target Cells Ovalocytes 1+ A ESR Potassium 2.7 L* Chloride 95 L Anion Gap Creatinine Glucose 160 H Calcium Magnesium 1.2 L Iron TIBC Lactate Dehydrogenase C-Reactive Protein Total Protein Albumin Albumin/Globulin Ratio Procalcitonin Urine Appearance Urine Protein Urine Ketones Urine Urobilinogen Hyaline Casts Urine Mucus Synovial Neutrophils 08/09/20 14:15 RBC Hgb 10.3 L Hct 34.0 L MCV 67.6 L MCH 20.5 L MCHC 30.3 L RDW 16.1 H Neut % (Auto) 81.1 H Lymph % (Auto) 10.2 L Lymph # (Auto) 0.67 L Seg Neutrophils % Lymphocytes % RBC Morphology Polychromasia Hypochromasia Poikilocytosis Anisocytosis Microcytosis Target Cells Ovalocytes ESR Potassium Chloride Anion Gap Creatinine Glucose Calcium Magnesium Iron TIBC Lactate Dehydrogenase C-Reactive Protein Total Protein Albumin Albumin/Globulin Ratio Procalcitonin Urine Appearance Urine Protein Urine Ketones Urine Urobilinogen Hyaline Casts Urine Mucus Synovial Neutrophils Meds: Medications Acetaminophen (Acetaminophen 325 Mg Tablet) 650 mg PO Q6HP PRN PRN Reason: PAIN/FEVER > 101 Hydrocodone Bitart/Acetaminophen (Hydrocodone/Apap 5/325mg Tablet) 1 tab PO Q4HP PRN PRN Reason: PAIN LEVEL 3-6 Last Admin: 08/11/20 11:10 Dose: 1 tab Documented by: Albuterol/Ipratropium (Ipratropium/Albuterol 3 Ml Ampul.Neb) 3 ml NEB Q4HP PRN PRN Reason: Shortness Of Breath Allopurinol (Allopurinol 300 Mg Tablet) [address] [facility] Last Admin: 08/12/20 08:46 Dose: 300 mg Documented by: Apixaban (Apixaban 5 Mg Tablet) [address] [facility] Last Admin: 08/12/20 08:44 Dose: 5 mg Documented by: Cephalexin HCl (Cephalexin 500 Mg Capsule) [address] [facility]; Protocol Last Admin: 08/12/20 08:45 Dose: 500 mg Documented by: Docusate Sodium (Docusate Sodium 100 Mg Capsule) [address] [facility] Last Admin: 08/12/20 08:45 Dose: 100 mg Documented by: Fludrocortisone Acetate (Fludrocortisone 0.1 Mg Tablet) 0.[address] [facility] Last Admin: 08/12/20 08:49 Dose: 0.1 mg Documented by: Hydroxyzine HCl (Hydroxyzine 25 Mg Tablet) 25 mg PO BIDP PRN PRN Reason: Anxiety Last Admin: 08/11/20 13:03 Dose: 25 mg Documented by: Potassium Chloride 40 meq/ (Dextrose) 520 mls @ 130 mls/hr IV UD PRN PRN Reason: Potassium < 3 Magnesium Sulfate (Magnesium Sulfate) 2 gm in 50 mls @ 50 mls/hr IV UD PRN PRN Reason: Magnesium </= 1.6 Lactulose (Lactulose 20 Gm/30 Ml Oral.Leanna) 20 gm PO DAILYP PRN PRN Reason: Constipation Lidocaine (Lidocaine Patch) [address] [facility] Last Admin: 08/12/20 08:50 Dose: 1 patch Documented by: Ondansetron HCl (Ondansetron 4 Mg/2 Ml Vial) 4 mg IV Q4HP PRN PRN Reason: Nausea And Vomiting Pantoprazole Sodium (Pantoprazole 40 Mg Packet) [address] [facility] Last Admin: 08/12/20 08:43 Dose: 40 mg Documented by: Budesonide- Formoterol 160-4.5 Mcg/Actuation Hfa [address] [facility] Last Admin: 08/12/20 09:27 Dose: 2 dose Documented by: Diclofenac Sodium [ Arthritis Pain ( Diclofenac)] Gel [address] [facility] Last Admin: 08/12/20 09:26 Dose: 1 dose Documented by: Polyethylene Glycol (Polyethylene Glycol 3350 17 Gm Packet) 17 gm PO DAILYP PRN PRN Reason: Constipation Potassium Chloride (Potassium Chloride 20 Meq Tablet) 40 meq PO UD PRN PRN Reason: Potssium is 3-3.5 Last Admin: 08/11/20 20:40 Dose: 40 meq Documented by: Potassium Chloride (Potassium Chloride 20 Meq Tablet) 40 meq PO UD PRN PRN Reason: Potassium < 3 Potassium Chloride (Potassium Chloride 20 Meq Tablet) [address] [facility] Last Admin: 08/12/20 08:49 Dose: 20 meq Documented by: Pregabalin (Pregabalin 75 Mg Capsule) [address] [facility] Last Admin: 08/12/20 08:45 Dose: 75 mg Documented by: Senna (Sennosides 1 Tablet) 2 tab PO DAILYP PRN PRN Reason: Constipation Sodium Chloride (0.9 % Sodium Chloride 10 Ml Syringe) [address] [facility] Last Admin: 08/12/20 05:24 Dose: 10 ml Documented by: Tamsulosin HCl (Tamsulosin 0.4 Mg Capsule) 0.[address] [facility] Last Admin: 08/12/20 08:44 Dose: 0.4 mg Documented by: A/P Narrative A/P Narrative: Assessment: 79-year-old male recently moved from [place] living at the [place] home admitted for right upper extremity cellulitis and concern for possible septic shoulder. 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 -Follow up pending ECHO -Electrolyte replacement prn -Continue home Eliquis/aspirin -[facility], -home fludrocortisone -pt/ot -ppx: eliquis -code status: full -disposition: SNF for rehab with referral to vascular surgery clinic. Time Spent With Patient Time: Total time spent is greater than 50% in coordination of care (as documented) at patient's floor/unit and/or counseling patient: QUALITY VTE Deep Vein Thrombosis/Pulmonary Embolism Present on Admission: No
[2020-08-12] MEDS: HYDROcodone/APAP 5/325MG TABLET PO PRN (20:38)
[2020-08-13] MEDS: 0.9 % SODIUM CHLORIDE 10 ML SYRINGE IV SCH ×2 (04:42→14:39)
[2020-08-13] MEDS: PANTOPRAZOLE 40 MG PACKET PO SCH (07:03)
--- NOTE | 2020-08-13 10:10 | Discharge Summary ---
Discharge Provider Provider Patient information: Note initiated : 08/13/20 at 9:51 am Service Date, if different from initiated Date: [] Patient: Juan R Norman 79 y/o M admitted on 08/09/20 for Sepsis. Chief Complaint: [] Date of admission: 08/09/20 21:15 Discharge date: 08/13/20 Primary care physician: PCP No Consults: 08/09/20 Consult to Physician [CONS] Stat Comment: Consulting Provider: Gordo Bernard Reason For Exam: Physician to Consult 08/09/20 21:40 Consult to Physician [CONS] Routine Comment: Consulting Provider: Juan C Emmanuel Reason For Exam: Physician to Consult Discharge Meds Discharge Medications Home Medications allopurinol 300 mg tablet 300 mg PO QDAY 06/05/20 [History Confirmed 08/10/20 Last Taken Unknown] cholecalciferol (vitamin D3) 50 mcg (2,000 unit) capsule 50 mcg PO QDAY 06/05/20 [History Confirmed 08/10/20 Last Taken Unknown] famotidine 20 mg tablet 20 mg PO QDAY 06/05/20 [History Confirmed 08/10/20 Last Taken Unknown] ferrous sulfate 324 mg (65 mg iron) tablet,delayed release 325 mg PO QDAY 06/05/20 [History Confirmed 08/10/20 Last Taken Unknown] fludrocortisone 0.1 mg tablet 0.1 mg PO BID tab 06/05/20 [History Confirmed 08/10/20 Last Taken Unknown] lidocaine 5 % topical patch 1 patch TOPICAL QDAY #15 ea 06/05/20 [Rx Confirmed 08/10/20 Last Taken Unknown] mecobalamin (vitamin B12) 1,000 mcg chewable tablet 1,000 mcg PO QDAY 06/05/20 [History Confirmed 08/10/20 Last Taken Unknown] potassium chloride 10 mEq capsule,extended release 20 meq PO QDAY 06/05/20 [History Confirmed 08/10/20 Last Taken Unknown] tamsulosin 0.4 mg capsule 0.4 mg PO QDAY 06/05/20 [History Confirmed 08/10/20 Last Taken Unknown] adhesive bandage 4" X 8" 07/20/20 [History Confirmed 08/09/20 Last Taken Unknown] apixaban 5 mg tablet 5 mg PO BID 07/20/20 [History Confirmed 08/10/20 Last Taken Unknown] budesonide-formoterol HFA 160 mcg-4.5 mcg/actuation aerosol inhaler 2 puff INHALATION DAILY 07/20/20 [History Confirmed 08/10/20 Last Taken Unknown] cyanocobalamin (vitamin B-12) 1,000 mcg capsule 1,000 mcg PO QDAY 07/20/20 [History Confirmed 08/10/20 Last Taken Unknown] diaper,brief,adult,disposable 07/20/20 [History Confirmed 08/10/20 Last Taken Unknown] diclofenac sodium 1 % topical gel 2 g TOPICAL QDAY 07/20/20 [History Confirmed 08/11/20 Last Taken Unknown] docusate sodium 100 mg capsule 100 mg PO QDAY 07/20/20 [History Confirmed 08/10/20 Last Taken Unknown] ketoconazole 2 % shampoo 1 applic TOPICAL DAILY PRN 07/20/20 [History Confirmed 08/10/20 Last Taken Unknown] pregabalin 75 mg capsule 75 mg PO BID 07/20/20 [History Confirmed 08/10/20 Last Taken Unknown] albuterol 20 mcg INHALATION Q4-6HP PRN 08/09/20 [History Confirmed 08/10/20 Last Taken Unknown] COURSE Hospital Course Hospital course: Mr. Norman is a 79 year old male who presented to ED with complaints of weakness and right upper extremity swelling. He was seen the beginning of July with fever with extensive work-up that was unremarkable. He was sent home but comes back today with increased weakness and increased right upper extremity swelling and redness. He also reported a fever. Work-up included ultrasound of the upper extremities which showed no DVT but did show a loculated fluid collection around the right shoulder. He also had redness and swelling of his forearm and hand. The patient was started on antibiotics for possible cellulitis. He had a early septic-like presentation. He was mildly tachycardic he was tachypneic he had blood pressure that was hypotensive with systolic 88. Lactate was within normal limits. Potassium and mag were low. Case was discussed with Dr. Emmanuel orthopedic surgeon will follow up on the aspiration analysis that is done by radiology. Recent life changes include his passing away in [place]. He had problems with his delphi developer so his sister went down to [place] to bring him back and he has been living in the [place] home since. He was in the hospital [place] few months ago for a stroke which affected his speech and left-sided weakness. 08/09 Highest fever was 102.1, concern for cellulitis vs septic right shoulder. UA not suggestive of UTI. CTA chest, CT abdomen/pelvis showed severe arthritis and inflammation in the right shoulder, stable scar and atelectasis in both lungs, mild hepatomegaly, cholelithiasis without cholecystitis, severe atherosclerosis in chest, abdomen, pelvis. No DVT on right upper extremity duplex. Right shoulder joint effusion aspirated for 50 ml of cloudy bloody fluid, only 577 nucleated cells w/ 27% neutrophils, no crystal seen, does not appear infectious, inflammatory, or secondary to crystal arthropathy. 08/10 Discussed the patient's unexplained right upper extremity edema and reviewed recent imaging with radiology, CT scan w/ venous phase contrast ordered to evaluate for SVC compression from ectatic aorta. Deescalated antibiotic to Keflex. 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 Discussed with IR at [facility]-recommended against stent placement due to high rate of stent failure for this vascular issue. IR recommended follow up with vascular surgery to discuss possible treatment options. Likely discharge to SNF soon for rehab and will try to arrange for a referral to [facility] on Friday. 08/12 Discussed right brachiocephalic extrinsic compression as the likely cause of the patient's right upper extremity as well as interventional radiology's recommendation for vascular surgery follow up. Blood culture showing now growth. 08/13 Discharged to SNF for rehab. 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 Procalcitonin checked, only .12 so did not continue antibiotics at discharge. Physical Exam Head: Atraumatic, normal inspection. Eyes: normal appearance, no scleral icterus. Neck: full ROM Respiratory: no respiratory distress. Cardiovascular: normal rate and rhythm, S1, S2. GI/Abdominal: soft, nontender, no guarding. Extremities: improved right upper extremity edema Neurological: CN II-XII intact, intact motor, intact sensation. Psychiatric: normal mood. Skin: warm, normal color Discharge diagnosis: Right brachiocephalic vein extrinsic compression Time Spent with Patient Time attestation: Total time spent providing and/or coordinating discharge services: EXAM Constitutional Vitals: Temp Pulse Resp BP Pulse Ox 97.8 F 87 20 177/96 94 08/13/20 07:27 08/13/20 07:27 08/13/20 07:27 08/13/20 07:27 08/13/20 07:27 Discharge Data Data Completed and Pending Labs on day of discharge: Preliminary micro results at discharge 08/09/20 15:07 Blood Culture - Preliminary Blood 08/09/20 14:54 Blood Culture - Preliminary Blood Discharge Plan Patient/Caregiver Discharge Instructions Activity: as per physical therapy Diet: Regular Diet Prescriptions: Continued apixaban 5 mg tablet 5 mg PO BID RF: 0 (DME) Briefs Misc See Rx Instructions .Route RF: 0 budesonide-formoterol 160-4.5 mcg/actuation HFA aerosol inhaler 2 puff inhalation DAILY RF: 0 cyanocobalamin (vitamin B-12) 1,000 mcg capsule 1,000 mcg PO QDAY RF: 0 diclofenac sodium [Arthritis Pain (diclofenac)] 1 % gel 2 g topical QDAY RF: 0 docusate sodium 100 mg capsule 100 mg PO QDAY RF: 0 (DME) adhesive bandage 4 X 8 " bandage See Rx Instructions .Route RF: 0 ketoconazole 2 % shampoo 1 applic topical DAILY PRN (Reason: dandruff) RF: 0 pregabalin 75 mg capsule 75 mg PO BID RF: 0 potassium chloride 10 mEq capsule, extended release 20 meq PO QDAY RF: 0 tamsulosin 0.4 mg capsule 0.4 mg PO QDAY RF: 0 fludrocortisone 0.1 mg tablet 0.1 mg PO BID RF: 0 famotidine 20 mg tablet 20 mg PO QDAY RF: 0 cholecalciferol (vitamin D3) 50 mcg (2,000 unit) capsule 50 mcg PO QDAY RF: 0 ferrous sulfate 324 mg (65 mg iron) tablet,delayed release (DR/EC) 325 mg PO QDAY RF: 0 allopurinol 300 mg tablet 300 mg PO QDAY RF: 0 mecobalamin (vitamin B12) 1,000 mcg tablet,chewable 1,000 mcg PO QDAY RF: 0 lidocaine 5 % adhesive patch,medicated 1 patch topical QDAY Qty: 15 RF: 0 albuterol 90 mcg/actuation Aerosol 20 mcg inhalation Q4-6HP PRN (Reason: Wheezing) RF: 0 Other Ambulatory Orders: OT Discharge Order (Routine) Location: None Selected Ordered By: Smith Harrison Physical Therapy at Discharge - General (Routine) Location: None Selected Ordered By: Smith Harrison Follow Up Plan Follow up with: No,PCP [Primary Care Provider] - Patient Disposition: Xfer SNF Prognosis: Fair Rehab Potential: Fair I certify that the patient requires SNF services: Yes Overall status at discharge: patient is progressing back to baseline Discharge Orders: Discharge Order (Routine); Ordered 08/13/20 Ordered By: mSith Harrison QUALITY VTE Deep Vein Thrombosis/Pulmonary Embolism Present on Admission: No
[2020-08-13] MEDS: TAMSULOSIN 0.4 MG CAPSULE PO SCH (10:29)
[2020-08-13] MEDS: APIXABAN 5 MG TABLET PO SCH (10:29)
[2020-08-13] MEDS: ALLOPURINOL 300 MG TABLET PO SCH (10:29)
[2020-08-13] MEDS: PREGABALIN 75 MG CAPSULE PO SCH (10:30)
[2020-08-13] MEDS: CEPHALEXIN 500 MG CAPSULE PO SCH ×2 (10:30→14:39)
[2020-08-13] MEDS: POTASSIUM CHLORIDE 20 MEQ TABLET PO SCH (10:30)
[2020-08-13] MEDS: DOCUSATE SODIUM 100 MG CAPSULE PO SCH (10:31)
[2020-08-13] MEDS: FLUDROCORTISONE 0.1 MG TABLET PO SCH (10:34)
[2020-08-13] MEDS: LIDOCAINE PATCH TOPICAL SCH (10:35)
[2020-08-13] MEDS: Budesonide-Formoterol 160-4.5 mcg/actuation HFA INH SCH (10:35)
[2020-08-13] MEDS: Diclofenac Sodium [Arthritis Pain (Diclofenac)] Gel TOPICAL SCH (10:38)
== END 2020-08-13 14:40 | DRG 872 ==
LOC: EDBD → ED 13:26 → MERGE 13:26 → MEDSUR 21:15
PROVIDERS: ADMIT Internal Medicine; ATTEND Internal Medicine

== ENCOUNTER 2022-04-30 10:46 | Inpatient (IN) ==
[2022-04-30] MEDS ORDERED: 0.9 % SODIUM CHLORIDE 1,000 ML IV ONE (11:14)
--- NOTE | 2022-04-30 11:22 | Emergency Department Note ---
HPI General Chief complaint: Weakness Stated complaint: lethargy, weakness, decreased level of consciousne Time Seen by Provider: 04/30/22 10:54 Source: EMS Mode of arrival: EMS Limitations: no limitations History of Present Illness HPI Narrative: Narrative: 81-year-old male with multiple medical problems presents to the emergency department by EMS for increasing weakness, somnolence, and decreased level of consciousness. He is here with his niece and caregiver. The symptoms have been present for several days and seem to be worsening. Patient slept for almost 40 hours. He is not getting up on his own. Patient has history of anemia and family is concerned that he may need a blood transfusion. Recently patient has taken several falls due to weakness. He has hit his head. He had a scan of his head after hitting it. He complains of left-sided headache. This has been present for 3 weeks. He denies vision changes, but does not see well. Recently he has had a sore throat which is improved. He has had chills, but no fever. He has a dry cough. He is not having chest pain or shortness of breath. His appetite is decreased. He is nauseated without vomiting. He is having loose stools at night. He does have some urinary incontinence. He wears a diaper for this. 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 He is still wearing a cast from this. He is taking hydrocodone for ongoing pain. He also has chronic back pain. He does have a spinal cord stimulator. Despite this his pain continues. Patient is currently taking Levaquin for pneumonia. He has been on this for a week. It was started because there was a small spot of pneumonia seen on chest x-ray. Related Data Home Medications Medication Instructions Recorded Confirmed allopurinol 300 mg tablet 300 mg PO QDAY 06/05/20 04/24/22 cholecalciferol (vitamin D3) 50 50 mcg PO QDAY 06/05/20 04/24/22 mcg (2,000 unit) capsule tamsulosin 0.4 mg capsule 0.4 mg PO QDAY 06/05/20 04/24/22 cyanocobalamin (vitamin B-12) 3,000 mcg PO QDAY 11/28/20 04/24/22 1,000 mcg capsule famotidine 40 mg tablet 40 mg PO QDAY 11/28/20 04/24/22 melatonin 10 mg tablet 10 mg PO HS 11/28/20 04/24/22 apixaban 5 mg tablet 5 mg PO BID 05/17/21 04/24/22 budesonide-formoterol HFA 80 2 puff inhalation QDAY 05/17/21 04/24/22 mcg-4.5 mcg/actuation aerosol inhaler diaper,brief,adult,disposable 05/17/21 04/24/22 (Briefs, Adult-Extra Large) diclofenac sodium 1 % topical gel 2 - 4 g topical Q8H PRN 05/17/21 04/24/22 fluticasone 250 mcg-salmeterol 50 1 inh inhalation BID 05/17/21 04/24/22 mcg/dose blistr powdr for inhalation ipratropium 0.5 mg-albuterol 3 mg 3 ml inhalation QID PRN 05/17/21 04/24/22 (2.5 mg base)/3 mL nebulization soln atorvastatin 40 mg tablet 40 mg PO QDAY 11/22/21 04/24/22 furosemide 20 mg tablet 20 mg PO QAM 03/19/22 04/24/22 paroxetine HCl 40 mg tablet 40 mg PO QDAY 03/21/22 04/24/22 trazodone 50 mg tablet 25 mg PO QHS PRN 03/21/22 04/24/22 Previous Rx's Medication Instructions Recorded pregabalin 75 mg capsule 75 mg PO BID #30 caps 08/13/20 hydrocodone 10 mg-acetaminophen 1 tab PO Q6H PRN pain #21 tabs 02/20/22 325 mg tablet oxybutynin chloride 10 mg 10 mg PO QDAY #90 tabs 03/20/22 tablet,extended release 24 hr levofloxacin 750 mg tablet 750 mg PO QDAY 7 days #7 tabs 04/24/22 Allergies Allergy/AdvReac Type Severity Reaction Status Date / Time ssri AdvReac Severe hallucinati Uncoded 04/24/22 11:01 ons Review of Systems ROS ROS Narrative: Narrative: All systems ED: reviewed and negative except as stated. [facility] Narrative Patient History Narrative: Narrative: Medical/Surgical/Family History All Active Problems (Updated 04/30/22 @ 17:58 by Charla Bueno PA-C) Infected surgical wound (Acute) Agitation (Acute) History of aortic aneurysm (Acute) SIMONE (acute kidney injury) (Acute) Acute dehydration (Acute) Postoperative anemia (Acute) Post surgical complication (Acute) Pneumonia (Acute) Arthralgia (Chronic) Lower extremity edema (Chronic) History of thalassemia (Chronic) COPD (chronic obstructive pulmonary disease) (Chronic) Chronic anticoagulation (Chronic) Gout (Chronic) History of rheumatoid arthritis (Chronic) History of CVA (cerebrovascular accident) (Chronic) Right knee pain (Chronic) Chronic low back pain (Chronic) Acute embolism and thrombosis of unspecified deep veins of unspecified lower extremity (Chronic) Atherosclerotic heart disease of [place] coronary artery without angina pectoris (Chronic) Benign essential hypertension (Chronic) Gastro-esophageal reflux disease without esophagitis (Chronic) Non-pressure chronic ulcer of unspecified part of unspecified lower leg with unspecified severity (Chronic) Nonrheumatic aortic valve disorder, unspecified (Chronic) Personal history of pulmonary embolism (Chronic) Pulmonary hypertension, unspecified (Chronic) Supraventricular tachycardia (Chronic) Unspecified osteoarthritis, unspecified site (Chronic) Right ankle sprain (Chronic) Fever (Chronic) Generalized weakness (Chronic) Wound infection (Chronic) Lumbar spondylosis (Chronic) Radiculopathy (Chronic) Myelopathy (Chronic) Failed back syndrome (Chronic) Degenerative disc disease (Chronic) Cervicalgia (Chronic) History of appendectomy (Chronic) History of hernia repair (Chronic) History of bilateral knee replacement (Chronic) Hx of laminectomy (Chronic) Acute hypokalemia (Chronic) Hypomagnesemia (Chronic) Cellulitis (Chronic) TIA (transient ischemic attack) (Chronic) Laceration (Chronic) Closed head injury (Chronic) Postoperative hypoxia (Chronic) SOB (shortness of breath) (Chronic) Acute lumbar radiculopathy (Chronic) Abscess of hand, right (Chronic) Syncope (Chronic) Peripheral arterial disease (Chronic) Osteoarthritis of right shoulder (Chronic) Right shoulder pain (Chronic) Osteoarthritis of left shoulder (Chronic) Left shoulder pain (Chronic) Radiculopathy, lumbar region (Chronic) Chronic intractable pain (Chronic) Nocturia (Chronic) Anemia (Chronic) BPH (benign prostatic hyperplasia) (Chronic) Other low back pain (Chronic) Major depressive disorder, recurrent, mild (Chronic) Mild cognitive impairment, so stated (Chronic) Orthostatic hypotension (Chronic) Other abnormalities of gait and mobility (Chronic) Other disorders of peripheral nervous system (Chronic) Peripheral vascular disease (Chronic) Pulmonary embolism (Chronic) Rheumatic mitral valve disease, unspecified (Chronic) Thalassemia minor (Chronic) Transient cerebral ischemic attack, unspecified (Chronic) Vitamin D deficiency, unspecified (Chronic) Chronic diastolic CHF (congestive heart failure), NYHA class 3 (Chronic) Aortic stenosis (Chronic) Aortic valve stenosis with insufficiency (Chronic) CAD (coronary artery disease) (Chronic) Cataract (Chronic) Chronic pain (Chronic) Chronic skin ulcer of lower leg (Chronic) Dizzy spells (Chronic) Full dentures (Chronic) MARSHALL (hard of hearing) (Chronic) Hyperlipidemia (Chronic) Iron deficiency anemia (Chronic) Peripheral neuropathy (Chronic) Psoriasis (Chronic) Range of motion deficit (Chronic) Varicose vein of leg (Chronic) Low libido (Acute) Erectile dysfunction (Chronic) Lower urinary obstructive symptom (Acute) Urge incontinence (Acute) Chest pain (Acute) Bilateral hip bursitis (Acute) Elbow pain (Acute) Urinary urgency (Chronic) Trochanteric bursitis of left hip (Chronic) Dizzy (Acute) Dizziness (Acute) Abdominal pain (Acute) Acute viral syndrome (Acute) Urge incontinence (Chronic) Urinary tract infection (Acute) Acute urinary retention (Acute) Acute confusion (Acute) Acute urinary retention (Acute) Chest pain, non-cardiac (Acute) Acute exacerbation of chronic obstructive pulmonary disease (Acute) Infiltrate of right lung present on chest x-ray (Acute) Urinary urgency (Chronic) Incomplete bladder emptying (Chronic) Nocturia (Chronic) Fall (Acute) Forehead laceration (Acute) Laceration of nose (Acute) Concussion (Acute) Medical History Acute embolism and thrombosis of unspecified deep veins of unspecified lower extremity Acute lumbar radiculopathy Anemia Aortic stenosis Aortic valve stenosis with insufficiency Arthralgia Atherosclerotic heart disease of [place] coronary artery without angina pectoris Benign essential hypertension Bilateral hip bursitis BPH (benign prostatic hyperplasia) CAD (coronary artery disease) Cataract Cervicalgia Chronic anticoagulation Chronic diastolic CHF (congestive heart failure), NYHA class 3 Chronic intractable pain Chronic low back pain Chronic pain Chronic skin ulcer of lower leg COPD (chronic obstructive pulmonary disease) Degenerative disc disease Dizzy spells Elbow pain Failed back syndrome Full dentures Gastro-esophageal reflux disease without esophagitis Gout History of CVA (cerebrovascular accident) History of rheumatoid arthritis History of thalassemia MARSHALL (hard of hearing) Hyperlipidemia Iron deficiency anemia Left shoulder pain Lower extremity edema Lumbar spondylosis Major depressive disorder, recurrent, mild Mild cognitive impairment, so stated Myelopathy Nocturia Non-pressure chronic ulcer of unspecified part of unspecified lower leg with unspecified severity Nonrheumatic aortic valve disorder, unspecified Orthostatic hypotension Osteoarthritis of left shoulder Osteoarthritis of right shoulder Other abnormalities of gait and mobility Other disorders of peripheral nervous system Other low back pain Peripheral neuropathy Peripheral vascular disease Personal history of pulmonary embolism Postoperative hypoxia Psoriasis Pulmonary embolism Pulmonary hypertension, unspecified Radiculopathy Radiculopathy, lumbar region Range of motion deficit Rheumatic mitral valve disease, unspecified Right knee pain Right shoulder pain SOB (shortness of breath) Supraventricular tachycardia Thalassemia minor Transient cerebral ischemic attack, unspecified x3 Trochanteric bursitis of left hip Unspecified osteoarthritis, unspecified site Varicose vein of leg Vitamin D deficiency, unspecified Surgical History History of aortic valve replacement (~11/2020) History of appendectomy History of back surgery (~2015) History of bilateral knee replacement History of cataract surgery (~2020) both History of colonoscopy History of hernia repair History of open sigmoidectomy (~1994) History of right heart catheterization (~10/2020) History of surgical procedure IVC Filter Hx of laminectomy No pertinent past surgical history Family History Father High blood pressure Heart disease Alcohol abuse Brother Heart disease Diabetes Mother High blood pressure Arthritis Diabetes Heart disease Sister High blood pressure Arthritis Heart disease Social History Smoking Status: Former smoker Alcohol Intake Frequency: 0-2 drinks per day Substance Use: other Exam Narrative Narrative: Narrative: General Limitations: no limitations General appearance: Present other (Sleeping, but wakes and cooperates for exam) Head Head: Present atraumatic and normocephalic Eye Eye: Present PERRL and EOMI ENT ENT: Present other (Dry mucous membranes) Neck Neck: Absent lymphadenopathy Chest Chest: Present normal inspection Respiratory Respiratory: Present normal lung sounds bilaterally; Absent respiratory distress, rales/crackles or wheezes Cardiovascular Cardiovascular: Present regular rate; Absent systolic murmur or diastolic murmur Adbominal Abdominal: Present soft and scar; Absent tenderness : Present other (White, thick coating on skin.) Extremities Extremities: Present normal inspection; Absent pedal edema Back Back: Present normal inspection and other (Well-healed scar over lower back); Absent CVA tenderness (R) or CVA tenderness (L) Neurological Neurological: Present oriented X3 Skin Skin: Present warm (WNL) and dry; Absent rash Course Vital Signs Vital signs: Vital Signs Temperature 98.1 F 04/30/22 10:54 Pulse Rate 96 H 04/30/22 10:54 Respiratory Rate 18 04/30/22 10:54 Blood Pressure 140/55 04/30/22 10:54 Pulse Oximetry (%) 94 04/30/22 10:54 Oxygen Delivery Method Room Air 04/30/22 10:54 Temperature 98.1 F 04/30/22 10:54 Pulse Rate 91 H 04/30/22 17:31 Respiratory Rate 18 04/30/22 10:54 Blood Pressure 119/68 04/30/22 17:31 Pulse Oximetry (%) 96 04/30/22 17:31 Oxygen Delivery Method Nasal Cannula 04/30/22 17:31 Oxygen Flow Rate (L/min) 2 04/30/22 17:31 [facility] MDM Narrative Medical decision making narrative: Narrative: Differential includes head injury from fall, pneumonia, urinary tract infection, COVID, electrolyte abnormality, anemia. CBC, Chem-8, hepatic function profile, urinalysis, COVID, influenza, CT of the head, chest x-ray, and EKG have been ordered. I received a call from radiology, patient was scheduled today to have his follow-up CT of his chest. This will be performed by the patient is here. Labs reviewed. CBC hemoglobin 8.7, hematocrit 28. Chem-8 and hepatic function profile have no concerning abnormalities. Urinalysis is clear. Troponin is 0.03. EKG sinus rhythm with premature atrial complexes, no ST segment elevation, ID interval [id number] scan of the head was performed due to patient having recent falls. There are no acute abnormalities. CT scan of the chest shows bilateral patchy infiltrate in the lower lobes. This is consistent with aspiration pneumonia. It is worsened since her previous chest x-ray. Patient is currently being treated outpatient for pneumonia. The pneumonia is worsening and patient is getting progressively weaker. I have discussed patient with the hospitalist who is agreed to admit her for pneumonia with failed outpatient treatment. Lab Data 04/30/22 11:37 Labs: Lab Results 04/30/22 04/30/22 04/30/22 Range/Units 11:37 11:37 11:41 WBC 7.3 (4.5-11.0) K/mcL RBC 3.86 L (4.63-6.08) M/mcL Hgb 8.7 L (13.7-17.5) g/dL Hct 28.0 L (40.1-51.0) % POC Hct (41-55) MCV 72.5 L (80.0-100.0) fL MCH 22.5 L (26.0-34.0) pg MCHC 31.1 (31.0-36.0) g/dL RDW 17.0 H (11.5-14.5) % Plt Count 164 (140-440) K/mcL MPV TNP Immature Gran % (Auto) 0.4 (0.0-0.5) % Neut % (Auto) 77.7 (38.0-78.0) % Lymph % (Auto) 11.7 L (15.5-49.0) % [place] % (Auto) 6.8 (1.0-12.0) % Eos % (Auto) 2.7 (0.0-7.0) % Baso % (Auto) 0.7 (0.0-2.0) % Lymph # (Auto) 0.86 L (1.50-4.80) K/mcL Avery # (Auto) 0.50 (0.10-0.90) K/mcL Eos # (Auto) 0.20 (0.00-0.70) K/mcL Baso # (Auto) 0.05 (0.00-0.30) K/mcL Immature Gran # 0.03 (0.00-0.05) K/mcl Absolute Neutrophils 5.68 (1.80-8.00) K/mcL ABG Methemoglobin (0.4-1.5) % VBG pH (7.32-7.42) U VBG pCO2 (41.0-51.0) mmHg VBG pO2 (25.0-40.0) mmHg VBG HCO3 (24.0-28.0) mmol/L VBG Total CO2 (25.0-29.0) mmol/L VBG O2 Saturation (40.0-70.0) % VBG Base Excess (-2-3) Carboxyhemoglobin (0.0-1.5) % THgb Total Hemoglobin (13.5-16.5) gm/Dl POC Sodium (133-145) POC Potassium (3.3-5.1) POC Chloride (96-108) POC Total CO2 (22-30) POC BUN (6-20) POC Creatinine (0.6-1.2) POC Glucose (70-105) POC WB Ioniz Calcium (1.16-1.32) Total Bilirubin 1.0 (0.1-1.0) mg/dL Direct Bilirubin 0.3 H (<0.3) mg/dL AST 36 (<40) U/L ALT 8 (<40) U/L Alkaline Phosphatase 63 (39-117) U/L Total Protein 6.0 (5.9-8.4) gm/dL Albumin 3.4 (3.2-5.2) gm/dL Globulin 2.6 (2.2-3.7) gm/dL Urine Color Yellow Urine Appearance Clear (Clear) Urine pH 6.0 (5.0-9.0) Ur Specific [place] 1.017 (1.000-1.035) Urine Protein Negative (Negative) mg/dL Urine Glucose (UA) Negative (Negative) mg/dL Urine Ketones 5 A (Negative) mg/dL Urine Occult Blood Negative (Negative) mg/dL Urine Nitrate Negative (Negative) Urine Bilirubin Negative (Negative) mg/dL Urine Urobilinogen Negative mg/dL Ur Leukocyte Esterase Negative (Negative) /uL Ur Culture Indicated? No POC Troponin I (0.00-0.08) 04/30/22 04/30/22 04/30/22 Range/Units 11:41 12:32 14:31 WBC (4.5-11.0) K/mcL RBC (4.63-6.08) M/mcL Hgb (13.7-17.5) g/dL Hct (40.1-51.0) % POC Hct 30.0 L (41-55) MCV (80.0-100.0) fL MCH (26.0-34.0) pg MCHC (31.0-36.0) g/dL RDW (11.5-14.5) % Plt Count (140-440) K/mcL MPV Immature Gran % (Auto) (0.0-0.5) % Neut % (Auto) (38.0-78.0) % Lymph % (Auto) (15.5-49.0) % Avery % (Auto) (1.0-12.0) % Eos % (Auto) (0.0-7.0) % Baso % (Auto) (0.0-2.0) % Lymph # (Auto) (1.50-4.80) K/mcL Avery # (Auto) (0.10-0.90) K/mcL Eos # (Auto) (0.00-0.70) K/mcL Baso # (Auto) (0.00-0.30) K/mcL Immature Gran # (0.00-0.05) K/mcl Absolute Neutrophils (1.80-8.00) K/mcL ABG Methemoglobin 0.4 (0.4-1.5) % VBG pH 7.46 H (7.32-7.42) U VBG pCO2 35.9 L (41.0-51.0) mmHg VBG pO2 115.5 H (25.0-40.0) mmHg VBG HCO3 25.0 (24.0-28.0) mmol/L VBG Total CO2 26.1 (25.0-29.0) mmol/L VBG O2 Saturation 90.1 H (40.0-70.0) % VBG Base Excess 1 (-2-3) Carboxyhemoglobin 7.5 H (0.0-1.5) % THgb Total Hemoglobin 9.4 L (13.5-16.5) gm/Dl POC Sodium 137 (133-145) POC Potassium 3.3 (3.3-5.1) POC Chloride 99 (96-108) POC Total CO2 27.0 (22-30) POC BUN 16 (6-20) POC Creatinine 0.8 (0.6-1.2) POC Glucose 94 (70-105) POC WB Ioniz Calcium 1.13 L (1.16-1.32) Total Bilirubin (0.1-1.0) mg/dL Direct Bilirubin (<0.3) mg/dL AST (<40) U/L ALT (<40) U/L Alkaline Phosphatase (39-117) U/L Total Protein (5.9-8.4) gm/dL Albumin (3.2-5.2) gm/dL Globulin (2.2-3.7) gm/dL Urine Color Urine Appearance (Clear) Urine pH (5.0-9.0) Ur Specific [place] (1.000-1.035) Urine Protein (Negative) mg/dL Urine Glucose (UA) (Negative) mg/dL Urine Ketones (Negative) mg/dL Urine Occult Blood (Negative) mg/dL Urine Nitrate (Negative) Urine Bilirubin (Negative) mg/dL Urine Urobilinogen mg/dL Ur Leukocyte Esterase (Negative) /uL Ur Culture Indicated? POC Troponin I 0.03 (0.00-0.08) ED POC Tests ED POC Tests: JAREN - Influenza A Negative JAREN - Influenza B Negative JAREN - SARS Antigen Negative Discharge Plan Patient/Caregiver Discharge Instructions Pt seen by [employer] HELPER/PA only: Yes Clinical Impression: Pneumonia Patient Disposition: Xfer As Inpt ([facility]) Condition: Fair Follow up with: Jerrell Tse NP [Primary Care Provider] - Prescriptions: No Action furosemide 20 mg tablet 20 mg PO QAM oxybutynin chloride 10 mg tablet extended release 24hr 10 mg PO QDAY Qty: 90 3RF ipratropium-albuterol 0.5 mg-3 mg(2.5 mg base)/3 mL solution for nebulization 3 ml inhalation QID PRN apixaban 5 mg tablet 5 mg PO BID (DME) Briefs, Adult-Extra Large Misc See Rx Instructions .Route Rx Instructions: As directed diclofenac sodium 1 % gel 2 - 4 g topical Q8H PRN Rx Instructions: apply to single elbow, wrist or hand; for hand includes palm/fingers/back of hand fluticasone propion-salmeterol 250-50 mcg/dose blister with device 1 inh inhalation BID budesonide-formoterol 80-4.5 mcg/actuation HFA aerosol inhaler 2 puff inhalation QDAY famotidine 40 mg tablet 40 mg PO QDAY melatonin 10 mg tablet 10 mg PO HS cyanocobalamin (vitamin B-12) 1,000 mcg capsule 3,000 mcg PO QDAY atorvastatin 40 mg tablet 40 mg PO QDAY hydrocodone-acetaminophen 10-325 mg tablet 1 tab PO Q6H PRN (Reason: pain) Qty: 21 0RF tamsulosin 0.4 mg capsule 0.4 mg PO QDAY cholecalciferol (vitamin D3) 50 mcg (2,000 unit) capsule 50 mcg PO QDAY allopurinol 300 mg tablet 300 mg PO QDAY paroxetine HCl 40 mg tablet 40 mg PO QDAY trazodone 50 mg tablet 25 mg PO QHS PRN levofloxacin 750 mg tablet 750 mg PO QDAY 7 Days Qty: 7 0RF pregabalin 75 mg Capsule 75 mg PO BID Qty: 30 0RF
[2022-04-30 11:52] LABS: POC Calcium, Ionized 1.13 (1.16-1.32); POC Creatinine 0.8 (0.6-1.2); POC Potassium 3.3 (3.3-5.1)
--- NOTE | 2022-04-30 12:04 | Cat Scan Report ---
CLINICAL INFORMATION: Trauma COMPARISON: 04/16/2022 TECHNIQUE: 2.5 mm helical slices were obtained in the skull base to vertex. Following reconstruction, axial reformatted images were reviewed at bone and parenchymal windows. The exam was performed using radiation dose optimization techniques including, but not limited to, automated exposure control, adjustment of the mA and/or kV according to patient size and use of iterative reconstruction technique. FINDINGS: The ventricles, sulci, fissures, and cisterns are symmetrically enlarged compatible with mild age-related atrophy. No extra-axial fluid collections are identified. Mild patchy chronic ischemic changes, in the deep cerebral white matter, are expected for age. There is no hemorrhage, mass effect, or edema. Bone windows show no osseous abnormality. IMPRESSION: Mild atrophy and chronic ischemic changes in the deep cerebral white matter-expected for age. No acute findings Interpreted and Authenticated by: Juan C Serna 04/30/22
[2022-04-30 12:15] LABS: Basophils # (Auto) 0.05 K/mcL (0.00-0.30); Basophils % (Auto) 0.7 % (0.0-2.0); Eosinophils % (Auto) 2.7 % (0.0-7.0); Hemoglobin 8.7 g/dL (13.7-17.5); Lymphocytes # (Auto) 0.86 K/mcL (1.50-4.80); Lymphocytes % (Auto) 11.7 % (15.5-49.0); Mean Cell Volume 72.5 fL (80.0-100.0); Mean Corpuscular HGB Conc 31.1 g/dL (31.0-36.0); Monocytes % (Auto) 6.8 % (1.0-12.0); Neutrophils % (Auto) 77.7 % (38.0-78.0); Platelet Count 164 K/mcL (140-440); RBC 3.86 M/mcL (4.63-6.08); WBC 7.3 K/mcL (4.5-11.0)
[2022-04-30 12:20] LABS: Appearance,Urine CLEAR (Clear); Bilirubin,Urine Negative (Negative); Color,Urine YELLOW; Culture Indicated,Urine No; Glucose,Urine (UA) Negative (Negative); Ketones,Urine 5 mg/dL (Negative); Leukocyte Esterase,Urine Negative /uL (Negative); Nitrate,Urine Negative (Negative); Protein,Urine Negative (Negative); Specific Gravity,Urine 1.017 (1.000-1.035); Urine Blood Negative (Negative); Urobilinogen,Urine Negative
--- NOTE | 2022-04-30 12:35 | Cat Scan Report ---
CLINICAL INFORMATION: Evaluate for lung nodule. Shortness of breath COMPARISON: Chest CT 02/19/2022 TECHNIQUE: 0.625 mm axial slices were obtained from the lung apices through the bases without intravenous contrast. 2.5 mm Sagittal, coronal and axial reformatted images were processed and reviewed at bone, lung and soft tissue windows. 7 mm axial MIP images were also reconstructed to optimize pulmonary nodule detection.The exam was performed using radiation dose optimization techniques including, but not limited to, automated exposure control, adjustment of the mA and/or kV according to patient size and use of iterative reconstruction technique. FINDINGS: Pulmonary parenchymal windows show chronic bronchitis featuring elevated lung volumes and wall thickening/dilatation of bronchi. Moderate patchy alveolar airspace disease throughout both lower lobes is new from the previous studies. It suggest aspiration pneumonia. Subsegmental atelectasis in the right middle lobe appreciated. No nodules identified. There are no effusions. 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 This is unchanged. There is also moderate enlargement of the central pulmonary arteries: main pulmonary diameter 3.9 cm. Findings compatible pulmonary hypertension due to COPD. The heart is moderately enlarged with aortic valve prostheses noted. There is heavy calcific plaque in the coronary arteries. There is no adenopathy in the mediastinal, hilar or axillary regions. Moderate narrowing of the intrathoracic trachea and both mainstem bronchi suggests tracheobronchomalacia this is new from the previous study. Esophagus is grossly normal. Bone windows show severe inflammatory arthritis of the right glenohumeral joint featuring erosions of both the glenoid and humeral head humerus with a large effusion. There is severe degeneration in the left glenohumeral joint. Images through the superior abdomen show multiple gallstones. Moderate pancreatic atrophy appreciated. IMPRESSION: 1. Moderate patchy infiltrates in both lower lobes suspicious for aspiration pneumonia this is new from the previous exam. 2. No pulmonary nodule identified. 3. Moderate central pulmonary artery enlargement compatible with pulmonary hypertension related to chronic bronchitis. 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 No change 5. Cholelithiasis. 6. Moderate pancreatic atrophy 7. 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
[2022-04-30 12:40] LABS: ALT/SGPT 8 U/L (<40); AST/SGOT 36 U/L (<40); Albumin 3.4 gm/dL (3.2-5.2); Alkaline Phosphatase 63 U/L (39-117); Bilirubin,Direct 0.3 mg/dL (<0.3); Globulin 2.6 gm/dL (2.2-3.7)
[2022-04-30] MEDS ORDERED: HYDROcodone/APAP 10/325MG TABLET PO ONE (14:13)
[2022-04-30] MEDS ORDERED: PIPERACILLIN SODIUM/TAZOBACTAM 4.5 GM in DEXTROSE 5% IN WATER 50 ML IV ONE (14:37)
[2022-04-30 14:56] LABS: ABG Methemoglobin 0.4 % (0.4-1.5); Total Hemoglobin 9.4 gm/Dl (13.5-16.5); VBG Base Excess 1 (-2-3); VBG Oxygen Saturation 90.1 % (40.0-70.0); VBG PCO2 35.9 mmHg (41.0-51.0); VBG PH 7.46 U (7.32-7.42); VBG PO2 115.5 mmHg (25.0-40.0); VBG Total CO2 26.1 mmol/L (25.0-29.0)
--- NOTE | 2022-04-30 17:36 | Internal Med History&Physical ---
HPI History of Present Illness Patient information: Note initiated : 04/30/22 at 5:26 pm Service Date, if different from initiated Date: [] Patient: Juan R Norman 81 y/o M admitted on for lethargy, weakness, decreased level of consciousne. Chief Complaint: [] History of present illness: Mr. Noramn is a 81 year old Male with multiple medical comorbidities who presented to the hospital with his sister for worsening generalized weakness, re cent cognitive changes. History is obtained from the patient's sister as the patient was encephalopathic in the emergency department. She says that about 3 days ago the patient developed these cognitive changes has been progressively worsening. The patient was seen in urgent care on 04/25/2022 and the provider was also concerned about confusion. Apparently, the patient was started on linezolid recently however the reason for that is not entirely clear. Additionally, the patient was started on levofloxacin on 04/25/2022 due to concern of pneumonia. In the emergency department, the patient did require 2 L/min nasal cannula oxygen however did not have fever, there was no leukocytosis, chemistry panel was fairly unremarkable. CT head without contrast that did not show any acute changes. The patient also had a CT chest without contrast that showed moderate patchy infiltrates in both lower lobes suspicious for aspiration pneumonia. Hospital medicine was asked to admit the patient for pneumonia. Review of systems: Unable to obtain due to encephalopathy. Physical exam Head: Atraumatic, normal inspection. Eyes: normal appearance, no scleral icterus. Neck: full ROM Respiratory: Nasal cannula oxygen supplementation, by lateral lower lobe crackles, no accessory muscle use. Cardiovascular: normal rate and rhythm, S1, S2. GI/Abdominal: soft, nontender, no guarding. Extremities: Right hand in cast due to recent finger amputation. Neurological: CN II-XII intact, intact motor, intact sensation. Psychiatric: Impaired memory and cognition. Skin: warm, normal color PFSH PFSH All Active Problems Infected surgical wound (Acute) Agitation (Acute) History of aortic aneurysm (Acute) SIMONE (acute kidney injury) (Acute) Acute dehydration (Acute) Postoperative anemia (Acute) Post surgical complication (Acute) Arthralgia (Chronic) Lower extremity edema (Chronic) History of thalassemia (Chronic) COPD (chronic obstructive pulmonary disease) (Chronic) Chronic anticoagulation (Chronic) Gout (Chronic) History of rheumatoid arthritis (Chronic) History of CVA (cerebrovascular accident) (Chronic) Right knee pain (Chronic) Chronic low back pain (Chronic) Acute embolism and thrombosis of unspecified deep veins of unspecified lower extremity (Chronic) Atherosclerotic heart disease of [place] coronary artery without angina pectoris (Chronic) Benign essential hypertension (Chronic) Gastro-esophageal reflux disease without esophagitis (Chronic) Non-pressure chronic ulcer of unspecified part of unspecified lower leg with unspecified severity (Chronic) Nonrheumatic aortic valve disorder, unspecified (Chronic) Personal history of pulmonary embolism (Chronic) Pulmonary hypertension, unspecified (Chronic) Supraventricular tachycardia (Chronic) Unspecified osteoarthritis, unspecified site (Chronic) Right ankle sprain (Chronic) Fever (Chronic) Generalized weakness (Chronic) Wound infection (Chronic) Lumbar spondylosis (Chronic) Radiculopathy (Chronic) Myelopathy (Chronic) Failed back syndrome (Chronic) Degenerative disc disease (Chronic) Cervicalgia (Chronic) History of appendectomy (Chronic) History of hernia repair (Chronic) History of bilateral knee replacement (Chronic) Hx of laminectomy (Chronic) Acute hypokalemia (Chronic) Hypomagnesemia (Chronic) Cellulitis (Chronic) TIA (transient ischemic attack) (Chronic) Laceration (Chronic) Closed head injury (Chronic) Postoperative hypoxia (Chronic) SOB (shortness of breath) (Chronic) Acute lumbar radiculopathy (Chronic) Abscess of hand, right (Chronic) Syncope (Chronic) Peripheral arterial disease (Chronic) Osteoarthritis of right shoulder (Chronic) Right shoulder pain (Chronic) Osteoarthritis of left shoulder (Chronic) Left shoulder pain (Chronic) Radiculopathy, lumbar region (Chronic) Chronic intractable pain (Chronic) Nocturia (Chronic) Anemia (Chronic) BPH (benign prostatic hyperplasia) (Chronic) Other low back pain (Chronic) Major depressive disorder, recurrent, mild (Chronic) Mild cognitive impairment, so stated (Chronic) Orthostatic hypotension (Chronic) Other abnormalities of gait and mobility (Chronic) Other disorders of peripheral nervous system (Chronic) Peripheral vascular disease (Chronic) Pulmonary embolism (Chronic) Rheumatic mitral valve disease, unspecified (Chronic) Thalassemia minor (Chronic) Transient cerebral ischemic attack, unspecified (Chronic) Vitamin D deficiency, unspecified (Chronic) Chronic diastolic CHF (congestive heart failure), NYHA class 3 (Chronic) Aortic stenosis (Chronic) Aortic valve stenosis with insufficiency (Chronic) CAD (coronary artery disease) (Chronic) Cataract (Chronic) Chronic pain (Chronic) Chronic skin ulcer of lower leg (Chronic) Dizzy spells (Chronic) Full dentures (Chronic) [place] (hard of hearing) (Chronic) Hyperlipidemia (Chronic) Iron deficiency anemia (Chronic) Peripheral neuropathy (Chronic) Psoriasis (Chronic) Range of motion deficit (Chronic) Varicose vein of leg (Chronic) Low libido (Acute) Erectile dysfunction (Chronic) Lower urinary obstructive symptom (Acute) Urge incontinence (Acute) Chest pain (Acute) Bilateral hip bursitis (Acute) Elbow pain (Acute) Urinary urgency (Chronic) Trochanteric bursitis of left hip (Chronic) Dizzy (Acute) Dizziness (Acute) Abdominal pain (Acute) Acute viral syndrome (Acute) Urge incontinence (Chronic) Urinary tract infection (Acute) Acute urinary retention (Acute) Acute confusion (Acute) Acute urinary retention (Acute) Chest pain, non-cardiac (Acute) Acute exacerbation of chronic obstructive pulmonary disease (Acute) Infiltrate of right lung present on chest x-ray (Acute) Urinary urgency (Chronic) Incomplete bladder emptying (Chronic) Nocturia (Chronic) Fall (Acute) Forehead laceration (Acute) Laceration of nose (Acute) Concussion (Acute) Medical History Acute embolism and thrombosis of unspecified deep veins of unspecified lower extremity Acute lumbar radiculopathy Anemia Aortic stenosis Aortic valve stenosis with insufficiency Arthralgia Atherosclerotic heart disease of [place] coronary artery without angina pectoris Benign essential hypertension Bilateral hip bursitis BPH (benign prostatic hyperplasia) CAD (coronary artery disease) Cataract Cervicalgia Chronic anticoagulation Chronic diastolic CHF (congestive heart failure), NYHA class 3 Chronic intractable pain Chronic low back pain Chronic pain Chronic skin ulcer of lower leg COPD (chronic obstructive pulmonary disease) Degenerative disc disease Dizzy spells Elbow pain Failed back syndrome Full dentures Gastro-esophageal reflux disease without esophagitis Gout History of CVA (cerebrovascular accident) History of rheumatoid arthritis History of thalassemia [place] (hard of hearing) Hyperlipidemia Iron deficiency anemia Left shoulder pain Lower extremity edema Lumbar spondylosis Major depressive disorder, recurrent, mild Mild cognitive impairment, so stated Myelopathy Nocturia Non-pressure chronic ulcer of unspecified part of unspecified lower leg with unspecified severity Nonrheumatic aortic valve disorder, unspecified Orthostatic hypotension Osteoarthritis of left shoulder Osteoarthritis of right shoulder Other abnormalities of gait and mobility Other disorders of peripheral nervous system Other low back pain Peripheral neuropathy Peripheral vascular disease Personal history of pulmonary embolism Postoperative hypoxia Psoriasis Pulmonary embolism Pulmonary hypertension, unspecified Radiculopathy Radiculopathy, lumbar region Range of motion deficit Rheumatic mitral valve disease, unspecified Right knee pain Right shoulder pain SOB (shortness of breath) Supraventricular tachycardia Thalassemia minor Transient cerebral ischemic attack, unspecified x3 Trochanteric bursitis of left hip Unspecified osteoarthritis, unspecified site Varicose vein of leg Vitamin D deficiency, unspecified Surgical History History of aortic valve replacement (~11/2020) History of appendectomy History of back surgery (~2015) History of bilateral knee replacement History of cataract surgery (~2020) both History of colonoscopy History of hernia repair History of open sigmoidectomy (~1994) History of right heart catheterization (~10/2020) History of surgical procedure IVC Filter Hx of laminectomy No pertinent past surgical history Family History Father High blood pressure Heart disease Alcohol abuse Brother Heart disease Diabetes Mother High blood pressure Arthritis Diabetes Heart disease Sister High blood pressure Arthritis Heart disease Social History household members: family housing: house lives independently: No marital status: education level: college occupational status: retired 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 [employer] smoking status: Former smoker smoking status stop date: 02/24/05 alcohol intake frequency: 0-2 drinks per day substance use type: other details: edible THC MEDS/ALLERGIES Home Medications and Allergies Home Medications Medication Instructions Recorded Confirmed Type allopurinol 300 mg tablet 300 mg PO QDAY 06/05/20 04/24/22 History cholecalciferol (vitamin D3) 50 50 mcg PO QDAY 06/05/20 04/24/22 History mcg (2,000 unit) capsule tamsulosin 0.4 mg capsule 0.4 mg PO QDAY 06/05/20 04/24/22 History pregabalin 75 mg capsule 75 mg PO BID #30 caps 08/13/20 04/24/22 Rx cyanocobalamin (vitamin B-12) 3,000 mcg PO QDAY 11/28/20 04/24/22 History 1,000 mcg capsule famotidine 40 mg tablet 40 mg PO QDAY 11/28/20 04/24/22 History melatonin 10 mg tablet 10 mg PO HS 11/28/20 04/24/22 History apixaban 5 mg tablet 5 mg PO BID 05/17/21 04/24/22 History budesonide-formoterol HFA 80 2 puff inhalation QDAY 05/17/21 04/24/22 History mcg-4.5 mcg/actuation aerosol inhaler diaper,brief,adult,disposable 05/17/21 04/24/22 History (Briefs, Adult-Extra Large) diclofenac sodium 1 % topical gel 2 - 4 g topical Q8H PRN 05/17/21 04/24/22 History fluticasone 250 mcg-salmeterol 50 1 inh inhalation BID 05/17/21 04/24/22 History mcg/dose blistr powdr for inhalation ipratropium 0.5 mg-albuterol 3 mg 3 ml inhalation QID PRN 05/17/21 04/24/22 History (2.5 mg base)/3 mL nebulization soln atorvastatin 40 mg tablet 40 mg PO QDAY 11/22/21 04/24/22 History hydrocodone 10 mg-acetaminophen 1 tab PO Q6H PRN pain #21 tabs 02/20/22 04/24/22 Rx 325 mg tablet furosemide 20 mg tablet 20 mg PO QAM 03/19/22 04/24/22 History oxybutynin chloride 10 mg 10 mg PO QDAY #90 tabs 03/20/22 04/24/22 Rx tablet,extended release 24 hr paroxetine HCl 40 mg tablet 40 mg PO QDAY 03/21/22 04/24/22 History trazodone 50 mg tablet 25 mg PO QHS PRN 03/21/22 04/24/22 History levofloxacin 750 mg tablet 750 mg PO QDAY 7 days #7 tabs 04/24/22 04/24/22 Rx Allergies Allergy/AdvReac Type Severity Reaction Status Date / Time ssri AdvReac Severe hallucinati Uncoded 04/24/22 11:01 ons EXAM Constitutional Vitals: Temp Pulse Resp BP Pulse Ox O2 Del Method O2 Flow Rate 98.1 F 88 18 111/88 88 L Nasal Cannula 2 03/07/23 10:54 04/30/22 16:31 04/30/22 10:54 04/30/22 16:31 04/30/22 16:31 04/30/22 16:45 04/30/22 16:45 DATA Data Completed and Pending Labs: Labs from last 24 hours 04/30/22 04/30/22 04/30/22 14:31 12:32 11:41 WBC RBC Hgb Hct POC Hct 30.0 L MCV MCH MCHC RDW Plt Count MPV Immature Gran % (Auto) Neut % (Auto) Lymph % (Auto) [place] % (Auto) Eos % (Auto) Baso % (Auto) Lymph # (Auto) [place] # (Auto) Eos # (Auto) Baso # (Auto) Immature Gran # Absolute Neutrophils ABG Methemoglobin 0.4 VBG pH 7.46 H VBG pCO2 35.9 L VBG pO2 115.5 H VBG HCO3 25.0 VBG Total CO2 26.1 VBG O2 Saturation 90.1 H VBG Base Excess 1 Carboxyhemoglobin 7.5 H Total Hemoglobin 9.4 L POC Sodium 137 POC Potassium 3.3 POC Chloride 99 POC Total CO2 27.0 POC BUN 16 POC Creatinine 0.8 POC Glucose 94 POC WB Ioniz Calcium 1.13 L Total Bilirubin Direct Bilirubin AST ALT Alkaline Phosphatase Total Protein Albumin Globulin Urine Color Urine Appearance Urine pH Ur Specific [place] Urine Protein Urine Glucose (UA) Urine Ketones Urine Occult Blood Urine Nitrate Urine Bilirubin Urine Urobilinogen Ur Leukocyte Esterase Ur Culture Indicated? POC Troponin I 0.03 04/30/22 04/30/22 04/30/22 11:41 11:37 11:37 WBC 7.3 RBC 3.86 L Hgb 8.7 L Hct 28.0 L POC Hct MCV 72.5 L MCH 22.5 L MCHC 31.1 RDW 17.0 H Plt Count 164 MPV TNP Immature Gran % (Auto) 0.4 Neut % (Auto) 77.7 Lymph % (Auto) 11.7 L [place] % (Auto) 6.8 Eos % (Auto) 2.7 Baso % (Auto) 0.7 Lymph # (Auto) 0.86 L [place] # (Auto) 0.50 Eos # (Auto) 0.20 Baso # (Auto) 0.05 Immature Gran # 0.03 Absolute Neutrophils 5.68 ABG Methemoglobin VBG pH VBG pCO2 VBG pO2 VBG HCO3 VBG Total CO2 VBG O2 Saturation VBG Base Excess Carboxyhemoglobin Total Hemoglobin POC Sodium POC Potassium POC Chloride POC Total CO2 POC BUN POC Creatinine POC Glucose POC WB Ioniz Calcium Total Bilirubin 1.0 Direct Bilirubin 0.3 H AST 36 ALT 8 Alkaline Phosphatase 63 Total Protein 6.0 Albumin 3.4 Globulin 2.6 Urine Color Yellow Urine Appearance Clear Urine pH 6.0 Ur Specific [place] 1.017 Urine Protein Negative Urine Glucose (UA) Negative Urine Ketones 5 A Urine Occult Blood Negative Urine Nitrate Negative Urine Bilirubin Negative Urine Urobilinogen Negative Ur Leukocyte Esterase Negative Ur Culture Indicated? No POC Troponin I A/P Narrative A/P Narrative: Assessment:81-year-old male with multiple medical comorbidities admitted for encephalopathy for about 3 days that developed soon after the patient was started on levofloxacin for a pneumonia. The patient was also recently started on linezolid however the reason for that is unclear. The patient had a CT chest that shows bilateral lobe infiltrates concerning for aspiration pneumonia. 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 -Cefepime IV for aspiration pneumonia, treat 5 days. -Oxygen supplementation, wean as able. -IV fluid. -MRSA nasal PCR. -Check procalcitonin level. -Iron studies. -Analgesics for back pain, avoid opioids as possible. -Home medication reconciliation. -Nutrition consult -ST, PT and OT. -Dysphagia diet. -Delirium bundle. -DVT prophylaxis: Resume DOAC after medication reconciliation. -CODE STATUS: Limited. -Disposition: Admit to inpatient [facility], anticipate greater than 2 midnight hospitalization. Time Spent With Patient Time: Total time spent is greater than 50% in coordination of care (as documented) at patient's floor/unit and/or counseling patient:
[2022-04-30] MEDS ORDERED: POTASSIUM CHLORIDE 20 MEQ TABLET PO ONE (17:40)
[2022-04-30] MEDS ORDERED: KETOROLAC 30 MG/ML VIAL IV PRN (19:05)
[2022-04-30] MEDS ORDERED: ONDANSETRON 4 MG/2 ML VIAL IV PRN (19:05)
[2022-04-30] MEDS: 0.9 % SODIUM CHLORIDE 1,000 ML IV SCH (19:32)
[2022-04-30] MEDS: ACETAMINOPHEN 1,000 MG/100 ML BAG IV SCH (19:32)
[2022-04-30] MEDS: CEFEPIME 2 GM VIAL IV SCH (19:35)
[2022-04-30] MEDS: FLUTICASONE/SALMETEROL 250/50 INHALER #14 INH SCH (21:34)
[2022-04-30] MEDS: SENNOSIDES 1 TABLET PO SCH (21:35)
[2022-04-30] MEDS: 0.9 % SODIUM CHLORIDE 10 ML SYRINGE IV SCH (21:35)
[2022-04-30] MEDS: DOCUSATE SODIUM 100 MG CAPSULE PO SCH (21:35)
[2022-04-30] MEDS: THIAMINE 100 MG TABLET PO SCH (21:35)
[2022-04-30] MEDS: PREGABALIN 75 MG CAPSULE PO SCH (21:35)
[2022-04-30] MEDS: APIXABAN 5 MG TABLET PO SCH (21:35)
[2022-04-30] MEDS: MELATONIN 3 MG TABLET PO SCH (21:45)
[2022-04-30] MEDS ORDERED: MELATONIN 3 MG TABLET PO ONE (21:46)
[2022-05-01] MEDS: ACETAMINOPHEN 1,000 MG/100 ML BAG IV SCH ×3 (03:54→19:20)
[2022-05-01] MEDS: 0.9 % SODIUM CHLORIDE 10 ML SYRINGE IV SCH ×3 (04:43→20:37)
[2022-05-01] MEDS: 0.9 % SODIUM CHLORIDE 1,000 ML IV SCH ×4 (05:27→23:13)
[2022-05-01] MEDS: CEFEPIME 2 GM VIAL IV SCH ×3 (05:51→20:36)
[2022-05-01 08:02] LABS: Basophils # (Auto) 0.06 K/mcL (0.00-0.30); Eosinophils # (Auto) 0.23 K/mcL (0.00-0.70); Eosinophils % (Auto) 3.8 % (0.0-7.0); Hematocrit 26.1 % (40.1-51.0); Hemoglobin 7.7 g/dL (13.7-17.5); Lymphocytes # (Auto) 0.96 K/mcL (1.50-4.80); Lymphocytes % (Auto) 15.8 % (15.5-49.0); Mean Cell Volume 73.5 fL (80.0-100.0); Mean Corpuscular HGB Conc 29.5 g/dL (31.0-36.0); Monocytes # (Auto) 0.34 K/mcL (0.10-0.90); Monocytes % (Auto) 5.6 % (1.0-12.0); Neutrophils % (Auto) 73.3 % (38.0-78.0); Platelet Count 122 K/mcL (140-440); RBC 3.55 M/mcL (4.63-6.08); Red Cell Distribution Width 17.3 % (11.5-14.5); WBC 6.1 K/mcL (4.5-11.0)
[2022-05-01 08:06] LABS: Ferritin 455.4 ng/mL (30.0-400.0)
[2022-05-01 08:13] LABS: ALT/SGPT 7 U/L (<40); AST/SGOT 33 U/L (<40); Albumin/Globulin Ratio 1.4 (1.0-2.3); Alkaline Phosphatase 56 U/L (39-117); Bilirubin,Direct 0.2 mg/dL (<0.3); Bilirubin,Total 0.7 mg/dL (0.1-1.0); Blood Urea Nitrogen 17 mg/dL (8-23); Calcium 8.1 mg/dL (8.6-10.4); Carbon Dioxide 25 mmol/L (22-30); Chloride 106 mmol/L (96-108); Globulin 2.2 gm/dL (2.2-3.7); Glomerular Filtration Rate 82; Glucose 93 mg/dL (70-105); Iron 107 ug/dL (61-157); Lactate Dehydrogenase 427 U/L (135-225); Phosphorous 3.1 mg/dL (2.5-4.5); TIBC Calculation 141 ug/dl (228-428); Transferrin % Saturation 76 % (20-50); Triglycerides 63 mg/dL (<150); Uric Acid 5.2 mg/dL (2.5-8.0)
[2022-05-01] MEDS: FOLIC ACID 1 MG TABLET PO SCH (08:39)
[2022-05-01] MEDS: ALLOPURINOL 300 MG TABLET PO SCH (08:39)
[2022-05-01] MEDS: APIXABAN 5 MG TABLET PO SCH ×2 (08:39→20:36)
[2022-05-01] MEDS: ATORVASTATIN 40 MG TABLET PO SCH (08:39)
[2022-05-01] MEDS: OXYBUTYNIN CHLORIDE 5 MG TAB.XL.24H PO SCH (08:39)
[2022-05-01] MEDS: DOCUSATE SODIUM 100 MG CAPSULE PO SCH ×2 (08:39→20:36)
[2022-05-01] MEDS: PARoxetine 20 MG TABLET PO SCH (08:39)
[2022-05-01] MEDS: Budesonide-Formoterol 80-4.5 mcg Inhaler INH SCH (08:39)
[2022-05-01] MEDS: TAMSULOSIN 0.4 MG CAPSULE PO SCH (08:39)
[2022-05-01] MEDS: FAMOTIDINE 20 MG TABLET PO SCH (08:39)
[2022-05-01] MEDS: PREGABALIN 75 MG CAPSULE PO SCH ×2 (08:39→20:36)
[2022-05-01] MEDS: MULTIVIT,THER IRON,CA,FA & MIN 1 TABLET PO SCH (08:39)
[2022-05-01] MEDS: FLUTICASONE/SALMETEROL 250/50 INHALER #14 INH SCH ×2 (08:40→20:44)
[2022-05-01] MEDS ORDERED: MAGNESIUM SULFATE 2 GM/50 ML BAG IV ONE (10:00)
[2022-05-01] MEDS ORDERED: 0.9 % SODIUM CHLORIDE 500 ML IV ONE (12:10)
--- NOTE | 2022-05-01 12:43 | Internal Med Progress Note ---
SUBJECTIVE Subjective Patient information: Note initiated : 05/01/22 at 12:41 pm Service Date, if different from initiated Date: [] Patient: Juan R Norman 81 y/o M admitted on 04/30/22 for lethargy, weakness, decreased level of consciousne. Chief Complaint: [] Interval history: Mr. Norman is a 81 year old Male with multiple medical comorbidities who presented to the hospital with his sister for worsening generalized weakness, recent cognitive changes. History is obtained from the patient's sister as the patient was encephalopathic in the emergency department. She says that about 3 days ago the patient developed these cognitive changes has been progressively worsening. The patient was seen in urgent care on 04/25/2022 and the provider was also concerned about confusion. Apparently, the patient was started on linezolid recently however the reason for that is not entirely clear. Additionally, the patient was started on levofloxacin on 04/25/2022 due to concern of pneumonia. In the emergency department, the patient did require 2 L/min nasal cannula oxygen however did not have fever, there was no leukocytosis, chemistry panel was fairly unremarkable. CT head without contrast that did not show any acute changes. The patient also had a CT chest without contrast that showed moderate patchy infiltrates in both lower lobes suspicious for aspiration pneumonia. Hospital medicine was asked to admit the patient for pneumonia. 05/01 Vitals stable overnight, oxygen supplementation weaned down to 1 L/min. The patient was hypotensive in the late morning however asymptomatic. We will give IV fluids and monitor blood pressure. Procalcitonin level was normal, CRP 5.20, iron studies suggest chronic inflammation, MRSA nasal PCR negative. Continue home Eliquis, allopurinol, atorvastatin, inhalers, famotidine, paroxetine, oxybutynin, Flomax. Holding home Lasix for now. Continues on cefepime for pneumonia. Physical exam Head: Atraumatic, normal inspection. Eyes: normal appearance, no scleral icterus. Neck: full ROM Respiratory: Nasal cannula oxygen supplementation, no accessory muscle use. Cardiovascular: normal rate GI/Abdominal: soft, nontender, no guarding. Extremities: Right hand in cast due to recent finger amputation. Neurological: CN II-XII intact, intact motor, intact sensation. Psychiatric: Impaired memory and cognition. Skin: warm, normal color Constitutional Vitals: Vital Signs Temp Pulse Resp BP Pulse Ox O2 Del Method O2 Flow Rate 97.5 F 94 H 15 82/46 96 Nasal Cannula 1 05/01/22 07:53 05/01/22 09:04 05/01/22 07:53 05/01/22 12:14 05/01/22 09:04 05/01/22 09:04 05/01/22 09:04 Period Temp Pulse Resp BP Sys/Young Pulse Ox O2 Del Method O2 Flow Rate Last 24 Hr 97.2 F-97.8 F 65-98 15-16 82-143/22-110 86-97 Nasal Cannula- Room Air 1-2 Intake and Output 05/01/22 05/01/22 05/01/22 03:59 11:59 19:59 Intake Total 100 1192 678 Output Total 352 Balance -252 1192 678 Intake & Output: Intake & Output 05/01/22 05/01/22 05/01/22 03:59 11:59 19:59 Intake Total 100 1192 678 Output Total 352 Balance -252 1192 678 Intake: IV 100 1192 678 Sodium Chloride 0.9% 1,000 ml @ 992 678 100 mls/hr IV .Q10H [facility] Rx#: [id number] Oral 0 Output: Void Amount 350 # of times incontinent of urine 2 Other: Urine Appearance Clear Urine Color Dark Yellow Urine Odor Strong # Voids 0 OBJ DATA Labs 05/01/22 05:54 05/01/22 05:54 Labs: Abnormal Lab Results 05/01/22 05/01/22 05/01/22 05:54 05:54 05:54 RBC 3.55 L Hgb 7.7 L Hct 26.1 L POC Hct MCV 73.5 L MCH 21.7 L MCHC 29.5 L RDW 17.3 H Plt Count 122 L Lymph % (Auto) Lymph # (Auto) 0.96 L VBG pH VBG pCO2 VBG pO2 VBG O2 Saturation Carboxyhemoglobin Total Hemoglobin Calcium 8.1 L POC WB Ioniz Calcium Magnesium 1.3 L TIBC 141 L Unsat Iron Binding 34 L Transferrin % Sat 76 H Ferritin 455.4 H Direct Bilirubin Lactate Dehydrogenase 427 H C-Reactive Protein 5.20 H Total Protein 5.2 L Albumin 3.0 L Urine Ketones 04/30/22 04/30/22 04/30/22 14:31 11:41 11:41 RBC Hgb Hct POC Hct 30.0 L MCV MCH MCHC RDW Plt Count Lymph % (Auto) Lymph # (Auto) VBG pH 7.46 H VBG pCO2 35.9 L VBG pO2 115.5 H VBG O2 Saturation 90.1 H Carboxyhemoglobin 7.5 H Total Hemoglobin 9.4 L Calcium POC WB Ioniz Calcium 1.13 L Magnesium TIBC Unsat Iron Binding Transferrin % Sat Ferritin Direct Bilirubin Lactate Dehydrogenase C-Reactive Protein Total Protein Albumin Urine Ketones 5 A 04/30/22 04/30/22 11:37 11:37 RBC 3.86 L Hgb 8.7 L Hct 28.0 L POC Hct MCV 72.5 L MCH 22.5 L MCHC RDW 17.0 H Plt Count Lymph % (Auto) 11.7 L Lymph # (Auto) 0.86 L VBG pH VBG pCO2 VBG pO2 VBG O2 Saturation Carboxyhemoglobin Total Hemoglobin Calcium POC WB Ioniz Calcium Magnesium TIBC Unsat Iron Binding Transferrin % Sat Ferritin Direct Bilirubin 0.3 H Lactate Dehydrogenase C-Reactive Protein Total Protein Albumin Urine Ketones Meds: Medications Allopurinol (Allopurinol 300 Mg Tablet) 300 mg PO QDAY [facility] Last Admin: 05/01/22 08:39 Dose: 300 mg Apixaban (Apixaban 5 Mg Tablet) 5 mg PO BID [facility] Last Admin: 05/01/22 08:39 Dose: 5 mg Atorvastatin Calcium (Atorvastatin 40 Mg Tablet) 40 mg PO QDAY [facility] Last Admin: 05/01/22 08:39 Dose: 40 mg Cefepime HCl (Cefepime 2 Gm Vial) 2 gm IV Q8H [facility]; Protocol Stop: 05/05/22 19:59 Last Admin: 05/01/22 05:51 Dose: 2 gm Docusate Sodium (Docusate Sodium 100 Mg Capsule) 100 mg PO BID [facility] Last Admin: 05/01/22 08:39 Dose: 100 mg Famotidine (Famotidine 20 Mg Tablet) 40 mg PO QDAY [facility] Last Admin: 05/01/22 08:39 Dose: 40 mg Folic Acid (Folic Acid 1 Mg Tablet) 1 mg PO QDAY [facility] Last Admin: 05/01/22 08:39 Dose: 1 mg Sodium Chloride (Sodium Chloride 0.9%) 1,000 mls @ 100 mls/hr IV .Q10H [facility] Last Infusion: 05/01/22 12:14 Dose: 0 mls/hr Acetaminophen (Ofirmev) 1,000 mg in 100 mls @ 200 mls/hr IV Q8H [facility]; Protocol Last Infusion: 05/01/22 11:56 Dose: Infused Iron Carb/Multivit/[place] [employer]/Folic Acid (Multivit,Ther Iron,Ca,Fa & Min 1 Tablet) 1 tab PO DAILY [facility] Last Admin: 05/01/22 08:39 Dose: 1 tab Ketorolac Tromethamine (Ketorolac 30 Mg/Ml Vial) 15 mg IV Q6HP PRN PRN Reason: Pain Stop: 05/02/22 17:25 Last Admin: 04/30/22 21:35 Dose: 15 mg Melatonin (Melatonin 3 Mg Tablet) 9 mg PO [facility] Last Admin: 04/30/22 21:45 Dose: 9 mg Ondansetron HCl (Ondansetron 4 Mg/2 Ml Vial) 4 mg IV Q6HP PRN PRN Reason: Nausea And Vomiting Oxybutynin Chloride (Oxybutynin Chloride 5 Mg Tab.Xl.24h) 10 mg PO QDAY [facility] Last Admin: 05/01/22 08:39 Dose: 10 mg Paroxetine HCl (Paroxetine 20 Mg Tablet) 40 mg PO DAILY [facility] Last Admin: 05/01/22 08:39 Dose: 40 mg Budesonide- Formoterol 80-4.5 Mcg Inhaler 2 dose INH QDAY [facility] Last Admin: 05/01/22 08:39 Dose: Not Given Pregabalin (Pregabalin 75 Mg Capsule) 75 mg PO BID [facility] Last Admin: 05/01/22 08:39 Dose: 75 mg Fluticasone/Salmeterol (Fluticasone/Salmeterol 250/50 Inhaler #14) 1 puff INH BID [facility] Last Admin: 05/01/22 08:40 Dose: Not Given Senna (Sennosides 1 Tablet) 2 tab PO [facility] Last Admin: 04/30/22 21:35 Dose: 2 tab Sodium Chloride (0.9 % Sodium Chloride 10 Ml Syringe) 10 ml IV Q8 [facility] Last Admin: 05/01/22 04:43 Dose: Not Given Tamsulosin HCl (Tamsulosin 0.4 Mg Capsule) 0.4 mg PO QDAY [facility] Last Admin: 05/01/22 08:39 Dose: 0.4 mg Thiamine HCl (Thiamine 100 Mg Tablet) 100 mg PO HS [facility] Last Admin: 04/30/22 21:35 Dose: 100 mg ABG Interpretation ABG results: 04/30/22 14:31 ABG Methemoglobin 0.4 VBG pH 7.46 H VBG pCO2 35.9 L VBG pO2 115.5 H VBG HCO3 25.0 VBG Total CO2 26.1 VBG O2 Saturation 90.1 H VBG Base Excess 1 A/P Narrative A/P Narrative: Assessment:81-year-old male with multiple medical comorbidities admitted for encephalopathy for about 3 days that developed soon after the patient was started on levofloxacin for a pneumonia. The patient was also recently started on linezolid however the reason for that is unclear. The patient had a CT chest that shows bilateral lobe infiltrates concerning for aspiration pneumonia. 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 -Oxygen supplementation, wean as able. -Analgesics for back pain, avoid opioids as possible. -Continue home Eliquis, allopurinol, atorvastatin, inhalers, famotidine, paroxetine, oxybutynin, Flomax. -Holding home Lasix for now -Replace electrolytes as needed. -Monitor hemoglobin. -Nutrition consult -ST, PT and OT. -Dysphagia diet. -Delirium bundle and supportive cares. -DVT prophylaxis: Eliquis -CODE STATUS: Limited. -Disposition: Inpatient MedSurg, anticipate the patient will discharge home with or without home health when more stable. Time Spent With Patient Time: Total time spent is greater than 50% in coordination of care (as documented) at patient's floor/unit and/or counseling patient: QUALITY Stroke Symptom Onset Unknown: No VTE Deep Vein Thrombosis/Pulmonary Embolism Present on Admission: No
[2022-05-01] MEDS: MELATONIN 3 MG TABLET PO SCH (20:36)
[2022-05-01] MEDS: SENNOSIDES 1 TABLET PO SCH (20:36)
[2022-05-01] MEDS: THIAMINE 100 MG TABLET PO SCH (20:36)
[2022-05-02] MEDS: ACETAMINOPHEN 1,000 MG/100 ML BAG IV SCH ×2 (03:19→12:05)
[2022-05-02] MEDS: CEFEPIME 2 GM VIAL IV SCH ×3 (06:06→21:35)
[2022-05-02] MEDS: 0.9 % SODIUM CHLORIDE 10 ML SYRINGE IV SCH ×3 (06:06→21:44)
--- NOTE | 2022-05-02 06:44 | EKG ---
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
--- NOTE | 2022-05-02 06:45 | EKG ---
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
[2022-05-02] MEDS: 0.9 % SODIUM CHLORIDE 1,000 ML IV SCH ×2 (08:25→21:49)
[2022-05-02] MEDS: FLUTICASONE/SALMETEROL 250/50 INHALER #14 INH SCH ×2 (09:17→21:36)
[2022-05-02] MEDS: FOLIC ACID 1 MG TABLET PO SCH (09:22)
[2022-05-02] MEDS: TAMSULOSIN 0.4 MG CAPSULE PO SCH (09:23)
[2022-05-02] MEDS: PARoxetine 20 MG TABLET PO SCH (09:23)
[2022-05-02] MEDS: ATORVASTATIN 40 MG TABLET PO SCH (09:23)
[2022-05-02] MEDS: FAMOTIDINE 20 MG TABLET PO SCH (09:23)
[2022-05-02] MEDS: OXYBUTYNIN CHLORIDE 5 MG TAB.XL.24H PO SCH (09:23)
[2022-05-02] MEDS: ALLOPURINOL 300 MG TABLET PO SCH (09:23)
[2022-05-02] MEDS: APIXABAN 5 MG TABLET PO SCH ×2 (09:23→21:36)
[2022-05-02] MEDS: PREGABALIN 75 MG CAPSULE PO SCH ×2 (09:23→21:36)
[2022-05-02] MEDS: MULTIVIT,THER IRON,CA,FA & MIN 1 TABLET PO SCH (09:23)
[2022-05-02] MEDS: DOCUSATE SODIUM 100 MG CAPSULE PO SCH ×2 (09:24→21:35)
[2022-05-02] MEDS ORDERED: 0.9 % SODIUM CHLORIDE 250 ML IV SCH (12:30)
[2022-05-02] MEDS ORDERED: ACETAMINOPHEN 500 MG TABLET PO PRN (12:38)
--- NOTE | 2022-05-02 13:05 | Internal Med Progress Note ---
SUBJECTIVE Subjective Patient information: Note initiated : 05/02/22 at 1:01 pm Service Date, if different from initiated Date: [] Patient: Juan R Norman a 81 y/o M admitted on 04/30/22 for lethargy, weakness, decreased level of consciousne. Chief Complaint: [] Interval history: Mr. Norman is a 81 year old Male with multiple medical comorbidities who presented to the hospital with his sister for worsening generalized weakness, recent cognitive changes. History is obtained from the patient's sister as the patient was encephalopathic in the emergency department. She says that about 3 days ago the patient developed these cognitive changes has been progressively worsening. The patient was seen in urgent care on 04/25/2022 and the provider was also concerned about confusion. Apparently, the patient was started on linezolid recently however the reason for that is not entirely clear. Additionally, the patient was started on levofloxacin on 04/25/2022 due to concern of pneumonia. In the emergency department, the patient did require 2 L/min nasal cannula oxygen however did not have fever, there was no leukocytosis, chemistry panel was fairly unremarkable. CT head without contrast that did not show any acute changes. The patient also had a CT chest without contrast that showed moderate patchy infiltrates in both lower lobes suspicious for aspiration pneumonia. Hospital medicine was asked to admit the patient for pneumonia. 05/01 Vitals stable overnight, oxygen supplementation weaned down to 1 L/min. The patient was hypotensive in the late morning however asymptomatic. We will give IV fluids and monitor blood pressure. Procalcitonin level was normal, CRP 5.20, iron studies suggest chronic inflammation, MRSA nasal PCR negative. Continue home Eliquis, allopurinol, atorvastatin, inhalers, famotidine, paroxetine, oxybutynin, Flomax. Holding home Lasix for now. Continues on cefepime for pneumonia. 05/02 The patient is clinically improving, on room air today. Cognitive status has significantly improved and the patient is near baseline according to his family members. Discontinued IV fluid. Hemoglobin 7.7 today, will give 1 unit of red blood cells as improved oxygen-carrying capacity may improve the patient's we akness. Physical exam Head: Atraumatic, normal inspection. Eyes: normal appearance, no scleral icterus. Neck: full ROM Respiratory: Room air, no respiratory distress Cardiovascular: normal rate GI/Abdominal: soft, nontender, no guarding. Extremities: Right hand surgical incision covered with clean bandage. Neurological: CN II-XII intact, intact motor, intact sensation. Psychiatric: Impaired memory and cognition. Skin: warm, normal color Constitutional Vitals: Vital Signs Temp Pulse Resp BP Pulse Ox O2 Del Method O2 Flow Rate 98.1 F 98 H 20 120/68 94 Room Air 0 05/02/22 12:00 05/02/22 12:00 05/02/22 12:00 05/02/22 12:00 05/02/22 12:00 05/02/22 12:00 05/01/22 20:00 Period Temp Pulse Resp BP Sys/Young Pulse Ox O2 Del Method O2 Flow Rate Last 24 Hr 97.6 F-98.1 F 74-98 18-28 108-140/51-104 92-100 Room Air-Room Air 0 Intake and Output 05/02/22 05/02/22 05/02/22 03:59 11:59 19:59 Intake Total 572 1000 Output Total 525 Balance 572 475 Intake & Output: Intake & Output 05/02/22 05/02/22 05/02/22 03:59 11:59 19:59 Intake Total 572 1000 Output Total 525 Balance 572 475 Intake: IV 522 1000 Sodium Chloride 0.9% 1,000 ml @ 322 1000 100 mls/hr IV .Q10H [facility] Rx#: [id number] Oral 50 Output: Void Amount 525 Other: Urine Appearance Clear Urine Color Yellow Stool Size Moderate Stool Color Brown Stool Consistency Liquid Loose # of times incontinent of 1 Bowels OBJ DATA Labs 05/01/22 14:03 05/01/22 05:54 Labs: Abnormal Lab Results 05/01/22 05/01/22 05/01/22 14:03 05:54 05:54 RBC Hgb 7.7 L Hct POC Hct MCV MCH MCHC RDW Plt Count Lymph % (Auto) Lymph # (Auto) VBG pH VBG pCO2 VBG pO2 VBG O2 Saturation Carboxyhemoglobin Total Hemoglobin Calcium 8.1 L POC WB Ioniz Calcium Magnesium 1.3 L TIBC 141 L Unsat Iron Binding 34 L Transferrin % Sat 76 H Ferritin 455.4 H Direct Bilirubin Lactate Dehydrogenase 427 H C-Reactive Protein 5.20 H Total Protein 5.2 L Albumin 3.0 L Urine Ketones 05/01/22 04/30/22 04/30/22 05:54 14:31 11:41 RBC 3.55 L Hgb 7.7 L Hct 26.1 L POC Hct 30.0 L MCV 73.5 L MCH 21.7 L MCHC 29.5 L RDW 17.3 H Plt Count 122 L Lymph % (Auto) Lymph # (Auto) 0.96 L VBG pH 7.46 H VBG pCO2 35.9 L VBG pO2 115.5 H VBG O2 Saturation 90.1 H Carboxyhemoglobin 7.5 H Total Hemoglobin 9.4 L Calcium POC WB Ioniz Calcium 1.13 L Magnesium TIBC Unsat Iron Binding Transferrin % Sat Ferritin Direct Bilirubin Lactate Dehydrogenase C-Reactive Protein Total Protein Albumin Urine Ketones 04/30/22 04/30/22 04/30/22 11:41 11:37 11:37 RBC 3.86 L Hgb 8.7 L Hct 28.0 L POC Hct MCV 72.5 L MCH 22.5 L MCHC RDW 17.0 H Plt Count Lymph % (Auto) 11.7 L Lymph # (Auto) 0.86 L VBG pH VBG pCO2 VBG pO2 VBG O2 Saturation Carboxyhemoglobin Total Hemoglobin Calcium POC WB Ioniz Calcium Magnesium TIBC Unsat Iron Binding Transferrin % Sat Ferritin Direct Bilirubin 0.3 H Lactate Dehydrogenase C-Reactive Protein Total Protein Albumin Urine Ketones 5 A Meds: Medications Acetaminophen (Acetaminophen 500 Mg Tablet) 500 mg PO Q4HP PRN; Protocol PRN Reason: Per Pain Protocol Allopurinol (Allopurinol 300 Mg Tablet) 300 mg PO QDAY [facility] Last Admin: 05/02/22 09:23 Dose: 300 mg Apixaban (Apixaban 5 Mg Tablet) 5 mg PO BID [facility] Last Admin: 05/02/22 09:23 Dose: 5 mg Atorvastatin Calcium (Atorvastatin 40 Mg Tablet) 40 mg PO QDAY [facility] Last Admin: 05/02/22 09:23 Dose: 40 mg Cefepime HCl (Cefepime 2 Gm Vial) 2 gm IV Q8H [facility]; Protocol Stop: 05/05/22 19:59 Last Admin: 05/02/22 06:06 Dose: 2 gm Docusate Sodium (Docusate Sodium 100 Mg Capsule) 100 mg PO BID [facility] Last Admin: 05/02/22 09:24 Dose: 100 mg Famotidine (Famotidine 20 Mg Tablet) 40 mg PO QDAY [facility] Last Admin: 05/02/22 09:23 Dose: 40 mg Folic Acid (Folic Acid 1 Mg Tablet) 1 mg PO QDAY [facility] Last Admin: 05/02/22 09:22 Dose: 1 mg Sodium Chloride (Sodium Chloride 0.9%) 250 mls @ 20 mls/hr IV .[id number] [facility] Stop: 05/03/22 00:59 Iron Carb/Multivit/[place]/Folic Acid (Multivit,Ther Iron,Ca,Fa & Min 1 Tablet) 1 tab PO DAILY [facility] Last Admin: 05/02/22 09:23 Dose: 1 tab Ketorolac Tromethamine (Ketorolac 30 Mg/Ml Vial) 15 mg IV Q6HP PRN PRN Reason: Pain Stop: 05/02/22 17:25 Last Admin: 04/30/22 21:35 Dose: 15 mg Melatonin (Melatonin 3 Mg Tablet) 9 mg PO [facility] Last Admin: 05/01/22 20:36 Dose: 9 mg Ondansetron HCl (Ondansetron 4 Mg/2 Ml Vial) 4 mg IV Q6HP PRN PRN Reason: Nausea And Vomiting Last Admin: 05/02/22 10:20 Dose: 4 mg Oxybutynin Chloride (Oxybutynin Chloride 5 Mg Tab.Xl.24h) 10 mg PO QDAY [facility] Last Admin: 05/02/22 09:23 Dose: 10 mg Paroxetine HCl (Paroxetine 20 Mg Tablet) 40 mg PO DAILY [facility] Last Admin: 05/02/22 09:23 Dose: 40 mg Budesonide- Formoterol 80-4.5 Mcg Inhaler 2 dose INH QDAY [facility] Last Admin: 05/01/22 08:39 Dose: Not Given Pregabalin (Pregabalin 75 Mg Capsule) 75 mg PO BID [facility] Last Admin: 05/02/22 09:23 Dose: 75 mg Fluticasone/Salmeterol (Fluticasone/Salmeterol 250/50 Inhaler #14) 1 puff INH BID [facility] Last Admin: 05/02/22 09:17 Dose: Not Given Senna (Sennosides 1 Tablet) 2 tab PO [facility] Last Admin: 05/01/22 20:36 Dose: 2 tab Sodium Chloride (0.9 % Sodium Chloride 10 Ml Syringe) 10 ml IV Q8 [facility] Last Admin: 05/02/22 06:06 Dose: Not Given Tamsulosin HCl (Tamsulosin 0.4 Mg Capsule) 0.4 mg PO QDAY [facility] Last Admin: 05/02/22 09:23 Dose: 0.4 mg Thiamine HCl (Thiamine 100 Mg Tablet) 100 mg PO HS [facility] Last Admin: 05/01/22 20:36 Dose: 100 mg ABG Interpretation ABG results: 04/30/22 14:31 ABG Methemoglobin 0.4 VBG pH 7.46 H VBG pCO2 35.9 L VBG pO2 115.5 H VBG HCO3 25.0 VBG Total CO2 26.1 VBG O2 Saturation 90.1 H VBG Base Excess 1 A/P Narrative A/P Narrative: Assessment:81-year-old male with multiple medical comorbidities admitted for encephalopathy for about 3 days that developed soon after the patient was started on levofloxacin for a pneumonia. The patient was also recently started on linezolid however the reason for that is unclear. The patient had a CT chest that shows bilateral lobe infiltrates concerning for aspiration pneumonia. After 2 days of hospitalization and discontinuation of linezolid and levofloxacin, the patient's cognitive status significantly improved. 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 -Analgesics for back pain, avoid opioids as possible. -Continue home Eliquis, allopurinol, atorvastatin, inhalers, famotidine, paroxetine, oxybutynin, Flomax. -Holding home Lasix for now -Replace electrolytes as needed. -1 unit RBC transfusion today. -Nutrition consult -ST, PT and OT. -Regular diet now to the patient's cognition has improved. -Delirium bundle and supportive cares. -DVT prophylaxis: Eliquis -CODE STATUS: Limited. -Disposition: Inpatient MedSur, anticipate the patient will discharge home terrell rrow with or without home health. Time Spent With Patient Time: Total time spent is greater than 50% in coordination of care (as documented) at patient's floor/unit and/or counseling patient: QUALITY Stroke Symptom Onset Unknown: No VTE Deep Vein Thrombosis/Pulmonary Embolism Present on Admission: No
[2022-05-02] MEDS: Budesonide-Formoterol 80-4.5 mcg Inhaler INH SCH (14:17)
[2022-05-02] MEDS ORDERED: FUROSEMIDE 20 MG/2 ML VIAL IV ONE (17:26)
[2022-05-02] MEDS: SENNOSIDES 1 TABLET PO SCH (21:36)
[2022-05-02] MEDS: MELATONIN 3 MG TABLET PO SCH (21:36)
[2022-05-02] MEDS: THIAMINE 100 MG TABLET PO SCH (21:36)
[2022-05-03] MEDS: CEFEPIME 2 GM VIAL IV SCH (05:43)
[2022-05-03] MEDS: 0.9 % SODIUM CHLORIDE 10 ML SYRINGE IV SCH (05:43)
[2022-05-03] MEDS: PREGABALIN 75 MG CAPSULE PO SCH (09:04)
[2022-05-03] MEDS: MULTIVIT,THER IRON,CA,FA & MIN 1 TABLET PO SCH (09:04)
[2022-05-03] MEDS: ALLOPURINOL 300 MG TABLET PO SCH (09:04)
[2022-05-03] MEDS: APIXABAN 5 MG TABLET PO SCH (09:04)
[2022-05-03] MEDS: PARoxetine 20 MG TABLET PO SCH (09:04)
[2022-05-03] MEDS: FAMOTIDINE 20 MG TABLET PO SCH (09:04)
[2022-05-03] MEDS: ATORVASTATIN 40 MG TABLET PO SCH (09:04)
[2022-05-03] MEDS: TAMSULOSIN 0.4 MG CAPSULE PO SCH (09:04)
[2022-05-03] MEDS: DOCUSATE SODIUM 100 MG CAPSULE PO SCH (09:05)
[2022-05-03] MEDS: OXYBUTYNIN CHLORIDE 5 MG TAB.XL.24H PO SCH (09:05)
[2022-05-03] MEDS: FOLIC ACID 1 MG TABLET PO SCH (09:05)
[2022-05-03 09:24] LABS: ALT/SGPT 9 U/L (<40); AST/SGOT 33 U/L (<40); Albumin 3.1 gm/dL (3.2-5.2); Albumin/Globulin Ratio 1.3 (1.0-2.3); Alkaline Phosphatase 66 U/L (39-117); Bilirubin,Direct 0.3 mg/dL (<0.3); Bilirubin,Total 0.8 mg/dL (0.1-1.0); Blood Urea Nitrogen 14 mg/dL (8-23); Calcium 8.1 mg/dL (8.6-10.4); Carbon Dioxide 24 mmol/L (22-30); Chloride 106 mmol/L (96-108); Globulin 2.3 gm/dL (2.2-3.7); Glomerular Filtration Rate 87; Glucose 92 mg/dL (70-105); Lactate Dehydrogenase 449 U/L (135-225); Phosphorous 2.6 mg/dL (2.5-4.5); Triglycerides 60 mg/dL (<150)
--- NOTE | 2022-05-03 10:31 | Discharge Summary ---
Discharge Provider Provider IMPORTANT FOLLOW-UP INFORMATION FOR PCP: Patient information: Note initiated : 05/03/22 at 10:28 am Service Date, if different from initiated Date: [] Patient: Juan R Norman 81 y/o M admitted on 04/30/22 for lethargy, weakness, decreased level of consciousne. Chief Complaint: [] Date of admission: 04/30/22 18:50 Discharge date: 05/03/22 Primary care physician: Jerrell Tse NP Consults: 04/30/22 13:37 Consult to Physician [CONS] Stat Comment: Consulting Provider: Smith Harrison Reason For Exam: Physician to Consult COURSE Hospital Course Hospital course: Mr. Norman is a 81 year old Male with multiple medical comorbidities who presented to the hospital with his sister for worsening generalized weakness, recent cognitive changes. History is obtained from the patient's sister as the patient was encephalopathic in the emergency department. She says that about 3 days ago the patient developed these cognitive changes has been progressively worsening. The patient was seen in urgent care on 04/25/2022 and the provider was also concerned about confusion. Apparently, the patient was started on linezolid recently however the reason for that is not entirely clear. Additionally, the patient was started on levofloxacin on 04/25/2022 due to concern of pneumonia. In the emergency department, the patient did require 2 L/min nasal cannula oxygen however did not have fever, there was no leukocytosis, chemistry panel was fairly unremarkable. CT head without contrast that did not show any acute changes. The patient also had a CT chest without contrast that showed moderate patchy infiltrates in both lower lobes suspicious for aspiration pneumonia. Hospital medicine was asked to admit the patient for pneumonia. 05/01 Vitals stable overnight, oxygen supplementation weaned down to 1 L/min. The patient was hypotensive in the late morning however asymptomatic. We will give IV fluids and monitor blood pressure. Procalcitonin level was normal, CRP 5.20, iron studies suggest chronic inflammation, MRSA nasal PCR negative. Continue home Eliquis, allopurinol, atorvastatin, inhalers, famotidine, paroxetine, oxybutynin, Flomax. Holding home Lasix for now. Continues on cefepime for pneumonia. 05/02 The patient is clinically improving, on room air today. Cognitive status has significantly improved and the patient is near baseline according to his family members. Discontinued IV fluid. Hemoglobin 7.7 today, will give 1 unit of red blood cells as improved oxygen-carrying capacity may improve the patient's weakness. Lasix 20 mg IV given after the blood transfusion. 05/03 Cognitive status is fluctuating, the patient does feel better after receiving the blood transfusion yesterday. I believe the patient's cognitive status will improve faster at home than in the hospital. Family in agreement and ready to take the patient home. We discussed considering hospice at home given the patient's cognitive impairment that is consistent with dementia and multiple medical comorbidities. The patient received sufficient antibiotic coverage for pneumonia therefore no antibiotics prescribed at discharge. The patient is was discharged to home with home health. Physical exam Head: Atraumatic, normal inspection. Eyes: normal appearance, no scleral icterus. Neck: full ROM Respiratory: Room air, no respiratory distress Cardiovascular: normal rate GI/Abdominal: soft, nontender, no guarding. Extremities: Right hand surgical incision covered with clean bandage. Neurological: CN II-XII intact, intact motor, intact sensation. Psychiatric: Impaired memory and cognition. Skin: warm, normal color Discharge diagnosis: Encephalopathy possibly related to the linezolid Secondary discharge diagnosis: Community-acquired pneumonia Acute on chronic anemia Time Spent with Patient Time attestation: Total time spent providing and/or coordinating discharge services: Time spent: Greater than 30 minutes EXAM Constitutional Vitals: Temp Pulse Resp BP Pulse Ox O2 Del Method O2 Flow Rate 97.9 F 78 16 139/78 95 Room Air 1 05/03/22 08:00 05/03/22 08:00 05/03/22 08:00 05/03/22 08:00 05/03/22 08:00 05/03/22 08:00 05/03/22 04:00 Discharge Data Data Completed and Pending Labs on day of discharge: Labs from last 24 hours 05/03/22 05/03/22 08:13 08:13 Hgb 9.1 L Sodium 138 Potassium 3.4 Chloride 106 Carbon Dioxide 24 Anion Gap 8.0 BUN 14 Creatinine 0.7 GFR Calculation 87 Glucose 92 Uric Acid 4.0 Calcium 8.1 L Phosphorus 2.6 Magnesium 1.4 L Total Bilirubin 0.8 Direct Bilirubin 0.3 H GGT 21 AST 33 ALT 9 Alkaline Phosphatase 66 Lactate Dehydrogenase 449 H Total Protein 5.4 L Albumin 3.1 L Globulin 2.3 Albumin/Globulin Ratio 1.3 Triglycerides 60 Discharge Plan Patient/Caregiver Discharge Instructions Activity: as per physical therapy Diet: Regular Diet Prescriptions: Continued furosemide 20 mg tablet 20 mg PO QAM oxybutynin chloride 10 mg tablet extended release 24hr 10 mg PO QDAY Qty: 90 3RF ipratropium-albuterol 0.5 mg-3 mg(2.5 mg base)/3 mL solution for nebulization 3 ml inhalation QID PRN (Reason: Shortness Of Breath) apixaban 5 mg tablet 5 mg PO BID (DME) Briefs, Adult-Extra Large Misc See Rx Instructions .Route Rx Instructions: As directed diclofenac sodium 1 % gel 2 - 4 g topical Q8H PRN (Reason: Incontinence) Rx Instructions: apply to single elbow, wrist or hand; for hand includes palm/fingers/back of hand fluticasone propion-salmeterol 250-50 mcg/dose blister with device 1 inh inhalation BID budesonide-formoterol 80-4.5 mcg/actuation HFA aerosol inhaler 2 puff inhalation QDAY famotidine 40 mg tablet 40 mg PO QDAY melatonin 10 mg tablet 10 mg PO HS cyanocobalamin (vitamin B-12) 1,000 mcg capsule 3,000 mcg PO QDAY atorvastatin 40 mg tablet 40 mg PO QDAY tamsulosin 0.4 mg capsule 0.4 mg PO QDAY cholecalciferol (vitamin D3) 50 mcg (2,000 unit) capsule 50 mcg PO QDAY allopurinol 300 mg tablet 300 mg PO QDAY paroxetine HCl 40 mg tablet 40 mg PO QDAY trazodone 50 mg tablet 25 mg PO QHS PRN (Reason: Insomnia) pregabalin 75 mg Capsule 75 mg PO BID Qty: 30 0RF Discontinued levofloxacin 750 mg tablet 750 mg PO QDAY 7 Days Qty: 7 0RF Follow Up Plan Follow up with: Jerrell Tse NP [Primary Care Provider] - Patient Disposition: Home Health Service Prognosis: Fair Overall status at discharge: patient is progressing back to baseline Discharge Orders: Discharge Order (Routine); Ordered 05/03/22 Ordered By: Smith FRAZIER VTE Deep Vein Thrombosis/Pulmonary Embolism Present on Admission: No
[2022-05-03] MEDS: Budesonide-Formoterol 80-4.5 mcg Inhaler INH SCH (10:51)
[2022-05-03] MEDS: FLUTICASONE/SALMETEROL 250/50 INHALER #14 INH SCH (10:54)
== END 2022-05-03 11:25 | disposition home health service (06) | DRG 91 ==
LOC: ED 10:46 → MEDSUR 18:50
PROVIDERS: ADMIT Internal Medicine; ATTEND Internal Medicine